=== PATIENT | male | born 1945 | race Caucasian/White ===

== ENCOUNTER 2016-11-08 14:17 | Inpatient (IN) | payer OTHER ==
[2016-11-08 15:27] LABS: Basophils # (A) 0.1 k/uL (0-0.2); Basophils % (A) 1 %; CH 28.6; CHCM 33.7; Eosinophils % (A) 0 %; HCT 40.2 % (39.0-53.0); HDW 2.62; Luc # (Auto) 0.22; Luc % (Auto) 5; Lymphocytes # (A) 0.4 k/uL (1.0-4.8); Lymphocytes % (A) 9 %; MCH 27.4 pg (25.0-35.0); MCHC 32.2 g/dL (31.0-37.0); MCV 85.1 fL (80.0-100.0); Mean Platelet Volume 7.9; Monocytes # (A) 0.6 k/uL (0-1.0); Monocytes % (A) 13 %; Neutrophils # (A) 3.5 k/uL (1.3-7.7); Neutrophils % (A) 72 %; RBC 4.73 m/uL (4.30-5.90); RDW 13.7 % (11.5-15.5); WBC 4.8 k/uL (3.8-10.6); WBC (Perox) 4.61
[2016-11-08 15:33] LABS: Calcium 8.9 mg/dL (8.4-10.2); Potassium 4.5 mmol/L (3.5-5.1)
[2016-11-08 15:34] LABS: INR 1.1 (<1.1)
[2016-11-08 15:35] LABS: Partial Thromboplastin Time 23.1 sec (22.0-30.0); Prothrombin Time 11.2 sec (9.0-12.0)
--- NOTE | 2016-11-08 16:10 | XR ---
EXAMINATION TYPE: XR chest 2V DATE OF EXAM: 11/08/2016 3:25 PM COMPARISON: Prior chest x-ray August HISTORY: Shortness of breath TECHNIQUE: Frontal and lateral views of the chest are obtained. FINDINGS: The heart is enlarged. Patient is post median sternotomy. Intracardiac defibrillator leads are present and stable. No pneumonia, pneumothorax, or pleural effusion. Prominent lung volume may b e indicative of underlying COPD. Pulmonary vascularity and reece not significantly changed. IMPRESSION: Stable cardiomegaly. No acute abnormalities evident.
[2016-11-08] MEDS ORDERED: NALOXONE 0.4 MG/ML 1 ML VIAL IV PRN (16:54)
[2016-11-08] MEDS ORDERED: NITROGLYCERIN SL TABS 0.4 MG TAB SUBLINGUAL PRN (16:56)
--- NOTE | 2016-11-08 17:05 | ED ---
General Adult HPI - General Chief complaint: Shortness of Breath Stated complaint: CHANTELLE Time Seen by Provider: 11/08/16 14:38 Source: patient Mode of arrival: wheelchair Limitations: no limitations - History of Present Illness Initial comments: 71-year-old male with past medical history of CHF, CVA/TIA, DM, HLD, HTN, CO, GERD, with pacemaker and CABG history presenting for evaluation of orthopnea for the last 4 days. He states the shortness of breath is only present when laying flat and when he sits up he has improvement. He had similar symptoms last year and states he was admitted with a diagnosis of acute exacerbation of CHF in August. He states there is no associated lower extremity swelling or fever but there is a cough productive of yellow sputum and he feels like he has a headache. He also has a past medical history of bladder cancer but is not receiving chemo or radiation therapy. - Related Data Home Medications Medication Instructions Recorded Confirmed Multivitamin/Iron/Folic Acid 1 tab PO DAILY 06/23/16 11/08/16 [Centrum Complete Multivit Tab] Glucosamine-Chondr 500-400Mg 1 tab PO DAILY 08/25/16 11/08/16 Bumetanide [Bumex] 1 mg PO DAILY 11/08/16 11/08/16 Carvedilol [Coreg] 6.25 mg PO AC-BID 11/08/16 11/08/16 Fish Oil/Dha/Epa [Fish Oil 1,200 1 cap PO DAILY 11/08/16 11/08/16 mg Fish Oil] Insulin NPH Human Isophane 30 unit SQ DAILY 11/08/16 11/08/16 [NovoLIN N] Tamsulosin HCl [Flomax] 0.4 mg PO DAILY 11/08/16 11/08/16 Previous Rx's Medication Instructions Recorded Clopidogrel [Plavix] 75 mg PO DAILY #30 tab 09/02/15 Furosemide [Lasix] 40 mg PO BID@0900,1600 #60 tab 09/11/16 Nitroglycerin Sl Tabs [Nitrostat] 0.4 mg SUBLINGUAL Q5M PRN #0 tab 09/11/16 Allergies Allergy/AdvReac Type Severity Reaction Status Date / Time Iodinated Contrast Media - Allergy Unknown Verified 11/08/16 15:15 Oral and [Iodinated Contrast Media - IV Dye] Review of Systems ROS Statement: Those systems with pertinent positive or pertinent negative responses have been documented in the HPI. General: Patient denies fever, chills,nausea, or vomiting. HEENT: No visual changes. No eye pain. No nasal symptoms. No dysphagia.No odynophagia. No ENT pain. Cardiac: No chest pain. No palpitations. Pulmonary; positive shortness of breath when lying flat, productive cough of yellow sputum GI: No abdominal pain. No diarrhea. No constipation. No bowel habit changes. No melena. No hematochezia. : No dysuria.No hematuria. No hesitancy. No urgency. No renal lithiasis history. Musculoskeletal: No musculoskeletal pain. Denies myalgias. Orthopedic: Denies fracture history. Denies arthralgias. Integumentary: Denies rash. Denies pruritis. Neurologic: Positive headache. Denies any lateralizing weakness. Denies numbness. Denies tingling. Heme/Onc: Denies anemia. Denies cancer. Denies adenopathy. ROS Other: All systems not noted in ROS Statement are negative. Past Medical History Past Medical History: CVA/TIA, Diabetes Mellitus, GERD/Reflux, Hyperlipidemia, Hypertension, Myocardial Infarction (CO) Additional Past Medical History / Comment(s): hematuria Last Myocardial Infarction Date:: 2009 History of Any Multi-Drug Resistant Organisms: None Reported Past Surgical History: Coronary Bypass/CABG, Pacemaker, Tonsillectomy Additional Past Surgical History / Comment(s): quadruple bypass Past Anesthesia/Blood Transfusion Reactions: No Reported Reaction Type of Cardiac Device: Permanent Pacemaker Device Placement Date:: 07/01/16 Past Psychological History: No Psychological Hx Reported Smoking Status: Former smoker Past Alcohol Use History: Occasional Additional Past Alcohol Use History / Comment(s): STARTED SMOKING AGE 16 (1960) , SMOKED 2PPD, QUIT 1990 Past Drug Use History: None Reported - Past Family History Father Family Medical History: Diabetes Mellitus General Exam - General Exam Comments Initial Comments: General: The patient is awake and alert, in no distress, and does not appear acutely ill. Eye: Pupils are equal, round and reactive to light, extra-ocular movements are intact; there is normal conjunctiva bilaterally. No signs of icterus. Ears, nose, mouth and throat: There are moist mucous membranes and no oral lesions. Neck: The neck is supple, there is no tenderness or JVD. Cardiovascular: There is a regular rate and rhythm. No murmur, rub or gallop is appreciated. Respiratory: Lungs are clear to auscultation, respirations are non-labored, breath sounds are equal. No wheezes, stridor, rales, or rhonchi. Gastrointestinal: Soft, non-distended, non-tender abdomen without masses or organomegaly noted. There is no rebound or guarding present. No CVA tenderness. Bowel sounds are unremarkable. Back: There is no tenderness to palpation in the midline. There is no obvious deformity. No rashes noted. Musculoskeletal: Normal ROM, no tenderness, There is no pedal edema. There is no calf tenderness or swelling. Sensation intact. Pulses equal bilaterally 2+. Neurological: CN II-XII intact, There are no obvious motor or sensory deficits. Coordination appears grossly intact. Speech is normal. Skin: Skin is warm and dry and no rashes or lesions are noted. Psychiatric: Cooperative, appropriate mood & affect, normal judgment. Limitations: no limitations Course Vital Signs 11/08/16 11/08/16 11/08/16 14:28 14:48 17:44 Temperature 98.0 F 100.3 F H Pulse Rate 74 73 Pulse Rate [ 97 Pulse Oximetery ] Respiratory 18 18 18 Rate Blood Pressure 126/68 126/76 Blood Pressure 168/79 [Right Arm] O2 Sat by Pulse 92 L 97 Oximetry 11/08/16 11/08/16 11/08/16 19:39 19:53 19:59 Temperature Pulse Rate 104 H 108 H 105 H Pulse Rate [ Pulse Oximetery ] Respiratory 26 H Rate Blood Pressure 178/81 Blood Pressure [Right Arm] O2 Sat by Pulse 98 Oximetry EKG Findings - EKG Comments: EKG Findings:: EKG shows normal sinus rhythm with ventricular rate of 74, GAYE 160, QRS 128, QT/QTc 410/455. This is unchanged from previous EKGs as compared with the EKG from 09/11/2016 Medical Decision Making - Medical Decision Making 71-year-old male with past medical history of CHF, CVA/TIA, DM, HLD, HTN, CO, GERD, with pacemaker and CABG history presented for evaluation of orthopnea for the last 4 days. He states the last time he had similar symptoms he was diagnosed with acute CHF exacerbation which was in August. He denies any lower extremity swelling but admits to associated cough productive of yellow sputum, headache and he has been afebrile. He states a history of bladder cancer and but has had no chemo and no radiation and does follow up with a urologist. On physical exam he has no lower extremity edema as he is sitting up in the bed, no Rales or rhonchi in the lung bases although there is diminished breath sounds bilaterally in the lower lobes. There is no noted JVD , tracheal deviation, and he has no right upper quadrant tenderness to palpation. We'll obtain labs, EKG, chest x-ray, and provided aspirin. Labs significant for elevated BUNs/CR, BNP, and troponin, all of which are consistent with previous values. He has also influenza B+. Chest x-ray shows stable cardiomegaly with no acute abnormalities evident. Prominent lung volume may be indicative of underlying COPD. Pulmonary vascularity and hilum not significantly changed. The patient was informed of these results and due to the progressive nature over 4 days of orthopnea was advised that admission for further evaluation would be appropriate. Dr. Gary was updated on the status of the patient and he accepted the admission with request for cardiology consult with Dr. Hernandez who has seen the pt previously. Admission order placed and bed request submitted. While awaiting a bed the patient developed mild shortness of breath. Will provide a duoneb and solumedrol. - Lab Data Result diagrams: 11/08/16 15:16 11/08/16 15:16 Lab Results 11/08/16 11/08/16 11/08/16 Range/Units 15:16 15:16 15:16 WBC 4.8 (3.8-10.6) k/uL RBC 4.73 (4.30-5.90) m/uL Hgb 13.0 (13.0-17.5) gm/dL Hct 40.2 (39.0-53.0) % MCV 85.1 (80.0-100.0) fL MCH 27.4 (25.0-35.0) pg MCHC 32.2 (31.0-37.0) g/dL RDW 13.7 (11.5-15.5) % Plt Count 109 L (150-450) k/uL Neutrophils % 72 % Lymphocytes % 9 % Monocytes % 13 % Eosinophils % 0 % Basophils % 1 % Neutrophils # 3.5 (1.3-7.7) k/uL Lymphocytes # 0.4 L (1.0-4.8) k/uL Monocytes # 0.6 (0-1.0) k/uL Eosinophils # 0.0 (0-0.7) k/uL Basophils # 0.1 (0-0.2) k/uL PT (9.0-12.0) sec INR (<1.1) APTT (22.0-30.0) sec Sodium 136 L (137-145) mmol/L Potassium 4.5 (3.5-5.1) mmol/L Chloride 98 (98-107) mmol/L Carbon Dioxide 27 (22-30) mmol/L Anion Gap 11 mmol/L BUN 43 H (9-20) mg/dL Creatinine 1.48 H (0.66-1.25) mg/dL Est GFR (MDRD) Af Amer 56 (>60 ml/min/1.73 sqM) Est GFR (MDRD) Non-Af 47 (>60 ml/min/1.73 sqM) Glucose 304 H (74-99) mg/dL Calcium 8.9 (8.4-10.2) mg/dL Troponin I (0.000-0.034) ng/mL NT-Pro-B Natriuret Pep 47152 pg/mL Influenza Type A RNA (Not Detectd) Influenza Type B (PCR) (Not Detectd) 11/08/16 11/08/16 11/08/16 Range/Units 15:16 15:16 15:16 WBC (3.8-10.6) k/uL RBC (4.30-5.90) m/uL Hgb (13.0-17.5) gm/dL Hct (39.0-53.0) % MCV (80.0-100.0) fL MCH (25.0-35.0) pg MCHC (31.0-37.0) g/dL RDW (11.5-15.5) % Plt Count (150-450) k/uL Neutrophils % % Lymphocytes % % Monocytes % % Eosinophils % % Basophils % % Neutrophils # (1.3-7.7) k/uL Lymphocytes # (1.0-4.8) k/uL Monocytes # (0-1.0) k/uL Eosinophils # (0-0.7) k/uL Basophils # (0-0.2) k/uL PT 11.2 (9.0-12.0) sec INR 1.1 (<1.1) APTT 23.1 (22.0-30.0) sec Sodium (137-145) mmol/L Potassium (3.5-5.1) mmol/L Chloride (98-107) mmol/L Carbon Dioxide (22-30) mmol/L Anion Gap mmol/L BUN (9-20) mg/dL Creatinine (0.66-1.25) mg/dL Est GFR (MDRD) Af Amer (>60 ml/min/1.73 sqM) Est GFR (MDRD) Non-Af (>60 ml/min/1.73 sqM) Glucose (74-99) mg/dL Calcium (8.4-10.2) mg/dL Troponin I 0.148 H* (0.000-0.034) ng/mL NT-Pro-B Natriuret Pep pg/mL Influenza Type A RNA Detected A (Not Detectd) Influenza Type B (PCR) Not Detected (Not Detectd) Disposition Clinical Impression: Acute CHF (congestive heart failure), Influenza A, Orthopnea Disposition: ADMITTED IP TO THIS [facility] Decision to Admit Reason: Admit from EC Decision Date: 11/08/16 Decision Time: 17:05
[2016-11-08] MEDS ORDERED: methylPREDNISolone SOD SUCCI 125 MG/2 ML VIAL IV STA (19:46)
[2016-11-08] MEDS ORDERED: IPRATROPIUM-ALBUTEROL 3 ML NEB INHALATION STA (19:46)
[2016-11-08 20:49] LABS: Glucose,Whole Blood 325 mg/dL (75-99)
[2016-11-08 20:53] VITALS: BMI 30.7
[2016-11-08] MEDS ORDERED: INSULIN NPH 300 UNIT/3 ML VIAL SQ SCH (21:06)
[2016-11-08] MEDS ORDERED: INSULIN NPH 300 UNIT/3 ML VIAL SQ STA (21:38)
[2016-11-08] MEDS ORDERED: INSULIN LISPRO (humaLOG) 300 UNIT/3 ML VIAL SQ ONE (21:41)
[2016-11-08] MEDS: CARVEDILOL 6.25 MG TAB PO SCH (21:55)
[2016-11-09 02:00] LABS: Glucose,Whole Blood 204 mg/dL (75-99)
[2016-11-09 06:25] LABS: Glucose,Whole Blood 286 mg/dL (75-99)
[2016-11-09 06:32] LABS: Basophils % (A) 0 %; CHCM 31.9; Eosinophils % (A) 0 %; HCT 41.8 % (39.0-53.0); HDW 2.59; HGB 13.3 gm/dL (13.0-17.5); Luc # (Auto) 0.06; Luc % (Auto) 2; Lymphocytes # (A) 0.5 k/uL (1.0-4.8); Lymphocytes % (A) 11 %; MCH 28.1 pg (25.0-35.0); MCHC 31.9 g/dL (31.0-37.0); MCV 88.1 fL (80.0-100.0); Mean Platelet Volume 7.4; Monocytes # (A) 0.2 k/uL (0-1.0); Monocytes % (A) 5 %; Neutrophils # (A) 3.6 k/uL (1.3-7.7); Neutrophils % (A) 83 %; RBC 4.75 m/uL (4.30-5.90); RDW 13.4 % (11.5-15.5); WBC 4.3 k/uL (3.8-10.6); WBC (Perox) 4.62
[2016-11-09 06:41] LABS: Calcium 8.9 mg/dL (8.4-10.2); Potassium 4.5 mmol/L (3.5-5.1)
[2016-11-09] MEDS: INSULIN LISPRO (humaLOG) 300 UNIT/3 ML VIAL SQ SCH ×4 (07:07→20:34)
[2016-11-09] MEDS: CARVEDILOL 6.25 MG TAB PO SCH ×2 (07:07→17:22)
--- NOTE | 2016-11-09 07:47 | XR ---
EXAMINATION TYPE: XR chest 2V DATE OF EXAM: 11/09/2016 6:41 AM COMPARISON: 11/08/2016 INDICATION: Short of breath chills and sweating TECHNIQUE: Frontal and lateral views of the chest are obtained. FINDINGS: The heart size is normal. The pulmonary vasculature is normal. The lungs are clear. IMPRESSION: 1. No acute pulmonary process.
[2016-11-09] MEDS ORDERED: FUROSEMIDE 40 MG TAB PO SCH (09:00)
[2016-11-09] MEDS ORDERED: INSULIN NPH 300 UNIT/3 ML VIAL SQ SCH (09:00)
[2016-11-09] MEDS ORDERED: BUMETANIDE 1 MG TAB PO SCH (09:00)
[2016-11-09] MEDS ORDERED: NON-FORMULARY DRUG (Glucosamine-Chondr 500-400mg 1 TAB) PO SCH (09:00)
--- NOTE | 2016-11-09 10:11 | P.CRDCN ---
<Shilpa Enriquez E - Last Filed: 11/09/16 09:45> History of Present Illness Consult date: 11/09/16 Requesting physician: Shikha Gary Consult reason: congestive heart failure Chief complaint: Shortness of breath History of present illness: This is a 71-year-old gentleman who follows regularly with Dr. Medina in the office. He has a known history of hypertension, hyperlipidemia, diabetes, coronary artery disease with prior bypass surgery, prior smoking history, most recently patient underwent a dual-chamber AICD in June of last year, also history of CVA in the past. He presented to the hospital with symptoms of worsening shortness of breath, positive PND and orthopnea, positive productive cough of yellow sputum with associated body aches and generalized malaise. Patient was most recently in the hospital in August with congestive cardiac failure. Patient also has past medical history of bladder cancer but is not receiving chemo or radiation therapy. Patient had been started on Entresto, states that he received the free one month and after that it was going to cost him $500, therefore he stopped taking it, went back on his usual cardiac meds. Chest x-ray on admission reveals stable cardiomegaly with no acute abnormality. EKG shows a normal sinus rhythm with nonspecific ST-T wave changes. Repeat chest x-ray this morning did not reveal any acute cardiopulmonary distress. Lab data was reviewed. Patient is positive for influenza A. BNP level XVI,CC. Troponin 0.14, BUN 54, creatinine 1.5, potassium 4.5. Patient was not initiated on IV Lasix, he is currently on Bumex 1 mg by mouth daily along with by mouth Lasix 40 mg one tablet by mouth twice a day. We will discontinue both the Bumex and the Lasix, start the patient on IV Lasix. We'll also initiate a small dose of LANG inhibitor, monitoring the potassium and creatinine closely. Past Medical History Past Medical History: CVA/TIA, Diabetes Mellitus, GERD/Reflux, Hyperlipidemia, Hypertension, Myocardial Infarction (VT) Additional Past Medical History / Comment(s): hematuria Last Myocardial Infarction Date:: 2009 History of Any Multi-Drug Resistant Organisms: None Reported Past Surgical History: Coronary Bypass/CABG, Pacemaker, Tonsillectomy Additional Past Surgical History / Comment(s): quadruple bypass Past Anesthesia/Blood Transfusion Reactions: No Reported Reaction Type of Cardiac Device: Permanent Pacemaker Device Placement Date:: 07/01/16 Past Psychological History: No Psychological Hx Reported Smoking Status: Former smoker Past Alcohol Use History: Occasional Additional Past Alcohol Use History / Comment(s): STARTED SMOKING AGE 16 (1960) , SMOKED 2PPD, QUIT 1990 Past Drug Use History: None Reported Additional Drug Use History / Comment(s): Patient states he drinks 1-2 beers/wk. - Past Family History Father Family Medical History: Diabetes Mellitus Medications and Allergies Home Medications Medication Instructions Recorded Confirmed Type Multivitamin/Iron/Folic Acid 1 tab PO DAILY 06/23/16 11/08/16 History [Centrum Complete Multivit Tab] Glucosamine-Chondr 500-400Mg 1 tab PO DAILY 08/25/16 11/08/16 History Bumetanide [Bumex] 1 mg PO DAILY 11/08/16 11/08/16 History Carvedilol [Coreg] 6.25 mg PO AC-BID 11/08/16 11/08/16 History Fish Oil/Dha/Epa [Fish Oil 1,200 1 cap PO DAILY 11/08/16 11/08/16 History mg Fish Oil] Insulin NPH Human Isophane 30 unit SQ DAILY 11/08/16 11/08/16 History [NovoLIN N] Tamsulosin HCl [Flomax] 0.4 mg PO DAILY 11/08/16 11/08/16 History Allergies Allergy/AdvReac Type Severity Reaction Status Date / Time Iodinated Contrast Media - Allergy Unknown Verified 11/08/16 15:15 Oral and [Iodinated Contrast Media - IV Dye] Physical Exam Vitals: Vital Signs Temp Pulse Pulse Resp BP BP Pulse Ox 11/09/16 03:57 97 F L 67 16 121/69 95 11/09/16 00:00 98.8 F 74 18 118/66 96 11/08/16 19:59 105 H 11/08/16 19:53 108 H 11/08/16 19:39 104 H 26 H 178/81 98 11/08/16 17:44 100.3 F H 73 97 18 126/76 168/79 97 Intake and Output 11/08/16 11/09/16 11/09/16 22:59 06:59 14:59 Intake Total 12 10 Output Total 350 200 Balance -338 -190 Intake: IV 12 10 0.9% NS FLUSH 10 mL 10 10 IV solumedrol 2 mL ONCE 2 Output: Urine 350 200 Other: # Voids 1 1 Weight 89 kg 89 kg PHYSICAL EXAMINATION: HEENT: Head is atraumatic, normocephalic. Pupils equal, round. Neck is supple. There is elevated jugular venous pressure. HEART EXAMINATION: Heart S1 and S2 systolic murmur is heard. CHEST EXAMINATION: Lungs reveal scattered coarse rhonchi throughout. ABDOMEN: Soft, nontender. Bowel sounds are heard. No organomegaly noted. EXTREMITIES: 2+ peripheral pulses with no evidence of peripheral edema and no calf tenderness noted. NEUROLOGIC patient is awake, alert and oriented -3. . Results 11/09/16 06:04 11/09/16 06:04 CBC 11/09/16 Range/Units 06:04 WBC 4.3 (3.8-10.6) k/uL RBC 4.75 (4.30-5.90) m/uL Hgb 13.3 (13.0-17.5) gm/dL Hct 41.8 (39.0-53.0) % Plt Count 109 L (150-450) k/uL Comprehensive Metabolic Panel 11/09/16 Range/Units 06:04 Sodium 137 (137-145) mmol/L Potassium 4.5 (3.5-5.1) mmol/L Chloride 99 (98-107) mmol/L Carbon Dioxide 25 (22-30) mmol/L BUN 54 H (9-20) mg/dL Creatinine 1.50 H (0.66-1.25) mg/dL Glucose 300 H (74-99) mg/dL Calcium 8.9 (8.4-10.2) mg/dL Current Medications Generic Name Dose Route Start Last Admin Trade Name Freq PRN Reason Stop Dose Admin Bumetanide 1 mg 11/09/16 09:00 Bumex PO DAILY [facility] Carvedilol 6.25 mg 11/08/16 17:30 11/09/16 07:07 Coreg PO 6.25 mg AC-BID BELLA Administration Clopidogrel Bisulfate 75 mg 11/09/16 09:00 Plavix PO DAILY [facility] Furosemide 40 mg 11/09/16 09:00 Lasix PO BID@0900,1600 [facility] Insulin Human Lispro 0 unit 11/09/16 07:30 11/09/16 07:07 Humalog SQ 5 unit ACHS BELLA Administration Protocol Insulin Human NPH 30 unit 11/09/16 09:00 Humulin N SQ DAILY BELLA Multivitamins 1 each 11/09/16 09:00 Theragran PO DAILY BELLA Naloxone HCl 0.2 mg 11/08/16 16:54 Narcan IV Q2M PRN Opioid Reversal Nitroglycerin 0.4 mg 11/08/16 16:56 Nitrostat SUBLINGUAL Q5M PRN Chest Pain Tamsulosin HCl 0.4 mg 11/09/16 09:00 Flomax PO DAILY BELLA Intake and Output 11/08/16 11/09/16 11/09/16 22:59 06:59 14:59 Intake Total 12 10 Output Total 350 200 Balance -338 -190 Intake: IV 12 10 0.9% NS FLUSH 10 mL 10 10 IV solumedrol 2 mL ONCE 2 Output: Urine 350 200 Other: # Voids 1 1 Weight 89 kg 89 kg 11/09/16 06:04 11/09/16 06:04 EKG Interpretations (text) EKG shows normal sinus rhythm with nonspecific ST-T wave changes. Assessment and Plan Plan: Assessment and plan #1 symptoms of shortness of breath with associated productive cough of yellow sputum. Associated body aches and fatigue, positive for influenza A. 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 Monitor intake and output along with daily weights daily lytes BUN and creatinine. Patient is not currently on an LANG inhibitor because of mildly abnormal renal function. If the creatinine normalizes we will consider the addition of an LANG inhibitor Aldactone. Will obtain an echocardiogram with Doppler study. Further recommendations to follow. DNP note has been reviewed, I agree with a documented findings and plan of care. Patient was seen and examined. <Daniel Ernandez - Last Filed: 11/09/16 16:24> Physical Exam Vitals: Vital Signs Temp Pulse Pulse Resp BP BP Pulse Ox 11/09/16 15:52 97.5 F L 60 16 108/65 92 L 11/09/16 11:45 97.7 F 62 113/57 93 L 11/09/16 08:00 65 11/09/16 03:57 97 F L 67 16 121/69 95 11/09/16 00:00 98.8 F 74 18 118/66 96 11/08/16 19:59 105 H 11/08/16 19:53 108 H 11/08/16 19:39 104 H 26 H 178/81 98 11/08/16 17:44 100.3 F H 73 97 18 126/76 168/79 97 Intake and Output 11/09/16 11/09/16 11/09/16 06:59 14:59 22:59 Intake Total 10 320 Output Total 200 Balance -190 320 Intake: IV 10 20 0.9% NS FLUSH 10 mL 10 20 Oral 300 Output: Urine 200 Other: # Voids 1 Weight 89 kg 89 kg Patient Weight 11/10/16 06:59 Weight 89 kg Results 11/09/16 06:04 11/09/16 06:04 CBC 11/09/16 Range/Units 06:04 WBC 4.3 (3.8-10.6) k/uL RBC 4.75 (4.30-5.90) m/uL Hgb 13.3 (13.0-17.5) gm/dL Hct 41.8 (39.0-53.0) % Plt Count 109 L (150-450) k/uL Comprehensive Metabolic Panel 11/09/16 Range/Units 06:04 Sodium 137 (137-145) mmol/L Potassium 4.5 (3.5-5.1) mmol/L Chloride 99 (98-107) mmol/L Carbon Dioxide 25 (22-30) mmol/L BUN 54 H (9-20) mg/dL Creatinine 1.50 H (0.66-1.25) mg/dL Glucose 300 H (74-99) mg/dL Calcium 8.9 (8.4-10.2) mg/dL Current Medications Generic Name Dose Route Start Last Admin Trade Name Freq PRN Reason Stop Dose Admin Acetaminophen/Hydrocodone Bitart 1 each 11/09/16 15:12 [place] 5-325 PO Q6HR PRN Pain Alprazolam 0.25 mg 11/09/16 15:12 Xanax PO TID PRN Anxiety Carvedilol 6.25 mg 11/08/16 17:30 11/09/16 07:07 Coreg PO 6.25 mg AC-BID BELLA Administration Clopidogrel Bisulfate 75 mg 11/09/16 09:00 11/09/16 11:37 Plavix PO 75 mg DAILY BELLA Administration Furosemide 40 mg 11/09/16 10:15 11/09/16 11:37 Lasix IV 40 mg Q12HR BELLA Administration Heparin Sodium (Porcine) 5,000 unit 11/09/16 21:00 Heparin SQ Q12HR BELLA Insulin Human Lispro 0 unit 11/09/16 07:30 11/09/16 13:06 Humalog SQ 5 unit ACHS BELLA Administration Protocol Insulin Human NPH 30 unit 11/09/16 09:00 11/09/16 11:36 Humulin N SQ 30 unit DAILY BELLA Administration Multivitamins 1 each 11/09/16 09:00 11/09/16 11:37 Theragran PO 1 each DAILY BELLA Administration Naloxone HCl 0.2 mg 11/08/16 16:54 Narcan IV Q2M PRN Opioid Reversal Nitroglycerin 0.4 mg 11/08/16 16:56 Nitrostat SUBLINGUAL Q5M PRN Chest Pain Tamsulosin HCl 0.4 mg 11/09/16 09:00 11/09/16 11:37 Flomax PO 0.4 mg DAILY BELLA Administration Temazepam 15 mg 11/09/16 15:12 Restoril PO HS PRN Insomnia Intake and Output 11/09/16 11/09/16 11/09/16 06:59 14:59 22:59 Intake Total 10 320 Output Total 200 Balance -190 320 Intake: IV 10 20 0.9% NS FLUSH 10 mL 10 20 Oral 300 Output: Urine 200 Other: # Voids 1 Weight 89 kg 89 kg Patient Weight 11/10/16 06:59 Weight 89 kg 11/09/16 06:04 11/09/16 06:04
[2016-11-09 11:36] LABS: Glucose,Whole Blood 297 mg/dL (75-99)
[2016-11-09] MEDS: INSULIN NPH 300 UNIT/3 ML VIAL SQ SCH (11:36)
[2016-11-09] MEDS: CLOPIDOGREL 75 MG TAB PO SCH (11:37)
[2016-11-09] MEDS: TAMSULOSIN 0.4 MG CAP.ER.24H PO SCH (11:37)
[2016-11-09] MEDS: MULTIVITAMINS, THERA 1 EACH TAB PO SCH (11:37)
[2016-11-09] MEDS: FUROSEMIDE 10 MG/ML 4 ML VIAL IV SCH ×2 (11:37→20:28)
--- NOTE | 2016-11-09 12:21 | ECHOF ---
Referral Reason:chf MEASUREMENTS -------- HEIGHT: 170.2 cm WEIGHT: 88.9 kg BP: 121/69 RVIDd: 3.7 cm (< 3.3) IVSd: 1.3 cm (0.6 - 1.1) LVIDd: 6.3 cm (3.9 - 5.3) LVPWd: 1.4 cm (0.6 - 1.1) IVSs: 1.7 cm LVIDs: 5.5 cm LVPWs: 1.6 cm LA Diam: 4.3 cm (2.7 - 3.8) LAESV Index (A-L): 50.34 ml/m Ao Diam: 3.3 cm (2.0 - 3.7) AV Cusp: 1.2 cm (1.5 - 2.6) LA Diam: 3.4 cm (2.7 - 3.8) MV EXCURSION: 20.282 mm (> 18.000) MV EF SLOPE: 55 mm/s (70 - 150) EPSS: 1.6 cm AV maxP.80 mmHg AV meanP.99 mmHg AR PHT: 996 ms RAP: 5.00 mmHg RVSP: 51.63 mmHg FINDINGS -------- This was a technically difficult study with suboptimal apical views. The left ventricle is mildly dilated. There is moderate concentric left ventricular hypertrophy. Overall left ventricular systolic function is moderate-severely impaired with, an EF between 30 - 35 %. Basal inferior LV wall motion is akinetic. The right ventricle is mild to moderately enlarged. LA is severely dilated >40 ml/m2 The right atrium is normal in size. 1.5mg of Definity was utilized for enhancement of images There is moderate aortic valve sclerosis. There is mild aortic regurgitation. There is mild aortic stenosis present. Peak/mean gradient across the Aortic Valve is 16.80mmHg / 8.99mmHg. Mild mitral annular calcification present. Moderate mitral regurgitation is present. Moderate tricuspid regurgitation present. There is moderate pulmonary hypertension. The right ventricular systolic pressure, as measured by Doppler, is 51.63mmHg. Trace/mild (physiologic) pulmonic regurgitation. The aortic root size is normal. There is no pericardial effusion. CONCLUSIONS -------- 1. This was a technically difficult study with suboptimal apical views. 2. There is moderate aortic valve sclerosis. 3. There is mild aortic regurgitation. 4. There is mild aortic stenosis present. 5. Peak/mean gradient across the Aortic Valve is 16.80mmHg / 8.99mmHg. 6. Mild mitral annular calcification present. 7. Moderate mitral regurgitation is present. 8. Moderate tricuspid regurgitation present. 9. There is moderate pulmonary hypertension. 10. The right ventricular systolic pressure, as measured by Doppler, is 51.63mmHg. 11. Trace/mild (physiologic) pulmonic regurgitation. 12. The left ventricle is mildly dilated. 13. The aortic root size is normal. 14. There is no pericardial effusion. 15. There is moderate concentric left ventricular hypertrophy. 16. Overall left ventricular systolic function is moderate-severely impaired with, an EF between 30 - 35 %. 17. Basal inferior LV wall motion is akinetic. 18. The right ventricle is mild to moderately enlarged. 19. LA is severely dilated >40 ml/m2 20. The right atrium is normal in size. 21. 1.5mg of Definity was utilized for enhancement of images [employer]: Karina Torres RDCS
[2016-11-09 12:25] LABS: Hemoglobin A1C 7.6 % (4.2-6.1)
[2016-11-09] MEDS ORDERED: TEMAZEPAM 15 MG CAP PO PRN (15:12)
[2016-11-09] MEDS ORDERED: HYDROcodone/APAP 5-325MG 1 EACH TAB PO PRN (15:12)
[2016-11-09] MEDS ORDERED: ALPRAZolam 0.25 MG TAB PO PRN (15:12)
[2016-11-09 16:48] LABS: Glucose,Whole Blood 288 mg/dL (75-99)
[2016-11-09] MEDS: HEPARIN SODIUM,PORCINE 5,000 UNIT/ML 1 ML VIAL SQ SCH (20:28)
[2016-11-09 20:37] LABS: Glucose,Whole Blood 245 mg/dL (75-99)
--- NOTE | 2016-11-09 21:57 | HP ---
DATE OF ADMISSION: 11/08/2016 CHIEF COMPLAINT: Shortness of breath. HISTORY OF PRESENT ILLNESS: This is a 71-year-old gentleman being followed by Dr. Crow in the outpatient setting with past medical history of cerebrovascular accident and transient ischemic attack, diabetes mellitus, GERD, hypertension, myocardial infarction, CAD/CABG, pacemaker was complaining of shortness of breath for the past several days because of the increasing shortness of breath the patient came to [facility] and admitted for further evaluation and treatment. The patient has history of congestive heart failure, ejection fraction 20-25% secondary to ischemic cardiomyopathy. There is no history of fever, rigors. No history of headache, loss of consciousness or seizures. After getting Lasix, the patient improved significantly. Patient being closely monitored. Cardiology evaluation in progress at this time. There is no much leg edema is noted. No history of any significant weight gain also according to the patient. Past history of congestive heart failure ejection fraction 20-25%, history of cerebrovascular accident, transient ischemic attack, diabetes mellitus , gastroesophageal reflux disease, hypertension, hyperlipidemia, history of CAD/CABG, pacemaker. Medications prior to admission include home medications: 1. Lasix 40 mg p.o. b.i.d. 2. Plavix 75 mg p.o. daily. 3. Flomax 0.4 mg daily. 4. Nitrostat 0.4 sublingual p.r.n. 5. Multivitamins one p.o. daily. 7. Glucosamine chondroitin 500/400, 1 p.o. daily. 8. Fish oil 1.2 grams p.o. daily. 9. Coreg 6.25 mg p.o. daily. 10. Bumex 1 mg p.o. daily. ALLERGIES ARE IODINATED CONTRAST DYE. Family history of diabetes in the family. SOCIAL HISTORY: Previous history of smoking. No history of current smoking or alcohol intake. REVIEW OF SYSTEMS: ENT: No diminished vision. No diminished hearing. CARDIOVASCULAR: As mentioned earlier. RESPIRATORY: As mentioned earlier. GASTROINTESTINAL: No nausea or vomiting. : No dysuria. Nervous system: No numbness, weakness. Allergy/immunology: No asthma or hayfever. MUSCULOSKELETAL: As mentioned earlier. HEMATOLOGY/ONCOLOGY: No history of anemia. ENDOCRINE: No history of diabetes or hypothyroidism. CONSTITUTIONAL: As mentioned earlier. DERMATOLOGY: Negative. RHEUMATOLOGY: Negative. PSYCHIATRY: As mentioned earlier. PHYSICAL EXAMINATION: The patient is alert and oriented times three. Pulse 67, blood pressure 120/69, respiratory rate 16, temperature 97 degrees, pulse ox 94% on 2 liters. HEENT: Conjunctivae normal. NECK: No jugular venous distention. CARDIOVASCULAR: S1, S2 muffled. RESPIRATORY : Breath sounds diminished at the bases. Bilateral scattered rhonchi and crackles. ABDOMEN: Soft, nontender. No mass palpable. Legs: No edema, no swelling. Nervous system: Higher functions as mentioned earlier. Moves all four limbs. No focal deficits. LYMPHATICS: No lymph nodes palpable in the neck, axillae or groin. SKIN: No ulcer, rash or bleeding. LABS: CBC, platelet 109, creatinine 1.05, other labs noted. Chest x-ray noted. ASSESSMENT: 1. Congestive heart failure acute exacerbation with acute on chronic systolic dysfunction; ejection fraction 20 to 25% secondary to ischemic cardiomyopathy. 2. Mild thrombocytopenia. 3. Increased creatinine with chronic kidney disease Stage III. 4. History of cerebrovascular accident/ transient ischemic attack. 5. Type 2 diabetes mellitus. 6. Gastroesophageal reflux disease. 7. Hypertension. 8. Hyperlipidemia. 9. History of myocardial infarction. 10. Hematuria. 11. Coronary artery disease/ coronary artery bypass grafting. 12. Pacemaker. 13. Remote history of nicotine dependence. 14. FULL CODE. Recommendations and discussion: In this 71-year-old gentleman who presented with multiple complex medical issues, we will monitor the patient closely. Continue the current medications. Continue symptomatic treatment . Initiate IV diuretics. Resume the rest of the medication including beta blockers. Otherwise, continue to monitor blood sugars closely. DVT prophylaxis. Guarded prognosis because of multiple complex medical issues. Further recommendations to follow. A copy of dictation being forwarded to Dr. Crow who is the primary physician. [facility]
[2016-11-10 06:22] LABS: Glucose,Whole Blood 176 mg/dL (75-99)
[2016-11-10] MEDS: INSULIN LISPRO (humaLOG) 300 UNIT/3 ML VIAL SQ SCH ×4 (06:46→21:38)
[2016-11-10] MEDS: CARVEDILOL 6.25 MG TAB PO SCH ×2 (06:46→17:42)
[2016-11-10 06:58] LABS: Basophils % (A) 0 %; CH 28.3; CHCM 33.1; Eosinophils % (A) 0 %; HCT 40.6 % (39.0-53.0); HDW 2.74; HGB 13.2 gm/dL (13.0-17.5); Luc # (Auto) 0.25; Luc % (Auto) 3; Lymphocytes # (A) 1.2 k/uL (1.0-4.8); Lymphocytes % (A) 16 %; MCH 27.8 pg (25.0-35.0); MCHC 32.4 g/dL (31.0-37.0); MCV 85.9 fL (80.0-100.0); Mean Platelet Volume 7.7; Monocytes # (A) 0.5 k/uL (0-1.0); Monocytes % (A) 6 %; Neutrophils # (A) 5.6 k/uL (1.3-7.7); Neutrophils % (A) 74 %; RBC 4.72 m/uL (4.30-5.90); RDW 13.3 % (11.5-15.5); WBC 7.5 k/uL (3.8-10.6); WBC (Perox) 8.03
[2016-11-10 07:05] LABS: Calcium 8.6 mg/dL (8.4-10.2); Potassium 3.9 mmol/L (3.5-5.1)
[2016-11-10] MEDS: CLOPIDOGREL 75 MG TAB PO SCH (08:36)
[2016-11-10] MEDS: MULTIVITAMINS, THERA 1 EACH TAB PO SCH (08:36)
[2016-11-10] MEDS: HEPARIN SODIUM,PORCINE 5,000 UNIT/ML 1 ML VIAL SQ SCH ×2 (08:36→21:38)
[2016-11-10] MEDS: FUROSEMIDE 10 MG/ML 4 ML VIAL IV SCH ×2 (08:36→21:37)
[2016-11-10] MEDS: TAMSULOSIN 0.4 MG CAP.ER.24H PO SCH (08:37)
[2016-11-10] MEDS: INSULIN NPH 300 UNIT/3 ML VIAL SQ SCH (08:38)
[2016-11-10 11:42] LABS: Glucose,Whole Blood 184 mg/dL (75-99)
--- NOTE | 2016-11-10 14:47 | P.PN ---
Subjective Principal diagnosis: CHF/influenza A This is a 71-year-old gentleman who follows regularly with Dr. Medina in the office. He has a known history of hypertension, hyperlipidemia, diabetes, coronary artery disease with prior bypass surgery, prior smoking history, most recently patient underwent a dual-chamber AICD in June of last year, also history of CVA in the past. He presented to the hospital with symptoms of worsening shortness of breath, positive PND and orthopnea, positive productive cough of yellow sputum with associated body aches and generalized malaise. Patient was most recently in the hospital in August with congestive cardiac failure. Patient also has past medical history of bladder cancer but is not receiving chemo or radiation therapy. Patient had been started on Entresto, states that he received the free one month and after that it was going to cost him $500, therefore he stopped taking it, went back on his usual cardiac meds. Chest x-ray on admission reveals stable cardiomegaly with no acute abnormality. EKG shows a normal sinus rhythm with nonspecific ST-T wave changes. Patient ruled in for influenza A. He was also initiated on IV Lasix for congestive heart failure. Total weight is down 6 kg. Creatinine today 1.4. Echocardiogram with Doppler study was performed which revealed an ejection fraction of 30-35%. Objective - Vital Signs Vital signs: Vital Signs Temp 98.9 F 11/10/16 08:00 Pulse 62 11/10/16 12:00 Resp 16 11/10/16 04:00 BP 113/53 11/10/16 12:00 Pulse Ox 97 11/10/16 12:00 Intake & Output 11/09/16 11/10/16 11/10/16 18:59 06:59 18:59 Intake Total 600 190 Output Total 350 120 Balance 250 -120 190 Weight 89 kg 83.7 kg Intake: IV 20 10 0.9% NS FLUSH 10 mL 20 10 Oral 580 180 Output: Urine 350 120 - Exam PHYSICAL EXAMINATION: HEENT: Head is atraumatic, normocephalic. Pupils equal, round. Neck is supple. There is elevated jugular venous pressure. HEART EXAMINATION: Heart S1 and S2 systolic murmur is heard. CHEST EXAMINATION: Lungs reveal scattered coarse rhonchi throughout. ABDOMEN: Soft, nontender. Bowel sounds are heard. No organomegaly noted. EXTREMITIES: 2+ peripheral pulses with no evidence of peripheral edema and no calf tenderness noted. NEUROLOGIC patient is awake, alert and oriented -3. - Labs CBC & Chem 7: 11/10/16 06:26 11/10/16 06:22 Labs: Abnormal Lab Results - Last 24 Hours (Table) 11/09/16 11/09/16 11/10/16 Range/Units 16:46 20:33 06:20 Plt Count (150-450) k/uL BUN (9-20) mg/dL Creatinine (0.66-1.25) mg/dL Glucose (74-99) mg/dL POC Glucose (mg/dL) 288 H 245 H 176 H (75-99) mg/dL 11/10/16 11/10/16 11/10/16 Range/Units 06:22 06:26 11:39 Plt Count 117 L (150-450) k/uL BUN 68 H (9-20) mg/dL Creatinine 1.46 H (0.66-1.25) mg/dL Glucose 184 H (74-99) mg/dL POC Glucose (mg/dL) 184 H (75-99) mg/dL Assessment and Plan Plan: Assessment and plan #1 symptoms of shortness of breath with associated productive cough of yellow sputum. Associated body aches and fatigue, positive for influenza A. #2 systolic congestive heart failure acute on chronic #3 ischemic cardio myopathy with prior AICD implantation #4 coronary artery disease with prior bypass surgery # 5 history of CVA #6 prior smoking history #7 diabetes #8 hypertension #9 hyperlipidemia #10 history of bladder cancer Plan We will continue the IV Lasix for 24 hours, check lytes BUN creatinine in the morning. DNP note has been reviewed, I agree with a documented findings and plan of care. Patient was seen and examined.
[2016-11-10 16:45] LABS: Glucose,Whole Blood 106 mg/dL (75-99)
--- NOTE | 2016-11-10 19:31 | PN ---
DATE OF SERVICE: 11/10/2016 This 71-year-old gentleman who was admitted with CHF, acute exacerbation, as well as acute on chronic systolic dysfunction, ejection fraction 20% to 25%, secondary to cardiomyopathy, had shortness of breath. The patient has improved significantly. No chest pain or palpitation. No fever. Cardiology is following the patient closely. Creatinine is 1.46 today, which is actually slightly better than yesterday. On exam, alert and oriented x3. Pulse is 56, blood pressure 102/63, respiration 16, temperature 98.9, pulse ox 92% on room air. HEENT: Conjunctivae normal. NECK: No jugular venous distention. No carotid bruit. No lymph node enlargement. CARDIOVASCULAR SYSTEM: S1, S2 muffled. No S3. No S4. RESPIRATORY SYSTEM: Breath sounds diminished at the bases. No rhonchi. No crackles. ABDOMEN: Soft, non-tender. No mass palpable. LEGS: No edema. No swelling. NERVOUS SYSTEM: No focal deficit. LABS: Platelets 117. Creatinine is 1.46. Troponin 0.148. ASSESSMENT: 1. Congestive heart failure, acute exacerbation, with acute on chronic systolic dysfunction; ejection fraction 20% to 25%, secondary to ischemic cardiomyopathy. 2. Mild thrombocytopenia. 3. Increased creatinine with chronic kidney disease, stage III. 4. History of cerebrovascular accident, transient ischemic attack. 5. Diabetes mellitus, type 2. 6. Gastroesophageal reflux disease. 7. Hypertension. 8. Hyperlipidemia. 9. History of myocardial infarction. 10. History of hematuria. 11. Coronary artery disease, coronary artery bypass graft. 12. Pacemaker. 13. Remote history of nicotine dependence. 14. FULL CODE. RECOMMENDATIONS AND DISCUSSION: In this 71-year-old gentleman who presented with multiple complex medical issues, we will monitor the patient closely, continue the current medications, continue with symptomatic treatment. Otherwise, at this time I recommend repeat labs. Closely monitor with Cardiology. Guarded prognosis. Further recommendations to follow. MTDD
[2016-11-10] MEDS ORDERED: MELATONIN 5 MG TABLET PO SCH (21:00)
[2016-11-10 21:29] LABS: Glucose,Whole Blood 109 mg/dL (75-99)
[2016-11-11 05:48] LABS: Glucose,Whole Blood 113 mg/dL (75-99)
[2016-11-11] MEDS: INSULIN LISPRO (humaLOG) 300 UNIT/3 ML VIAL SQ SCH ×2 (06:21→12:33)
[2016-11-11] MEDS: CARVEDILOL 6.25 MG TAB PO SCH (06:23)
[2016-11-11 06:30] VITALS: RESP 18
[2016-11-11 06:41] LABS: Basophils % (A) 0 %; CH 28.2; CHCM 32.7; Eosinophils % (A) 0 %; HCT 43.4 % (39.0-53.0); HDW 2.81; HGB 14.1 gm/dL (13.0-17.5); Luc % (Auto) 3; Lymphocytes # (A) 1.4 k/uL (1.0-4.8); Lymphocytes % (A) 22 %; MCH 28.1 pg (25.0-35.0); MCHC 32.5 g/dL (31.0-37.0); MCV 86.5 fL (80.0-100.0); Mean Platelet Volume 7.6; Monocytes # (A) 0.4 k/uL (0-1.0); Monocytes % (A) 7 %; Neutrophils # (A) 4.1 k/uL (1.3-7.7); Neutrophils % (A) 67 %; RBC 5.02 m/uL (4.30-5.90); RDW 13.4 % (11.5-15.5); WBC 6.1 k/uL (3.8-10.6)
[2016-11-11 06:55] LABS: Anion Gap 13 mmol/L; Calcium 8.8 mg/dL (8.4-10.2); Carbon Dioxide 26 mmol/L (22-30); Chloride 100 mmol/L (98-107); Glucose 106 mg/dL (74-99); Non-African American GFR(MDRD) 52 (>60 ml/min/1.73 sqM); Sodium 139 mmol/L (137-145)
[2016-11-11 06:56] LABS: Blood Urea Nitrogen 66 mg/dL (9-20); Potassium 4.2 mmol/L (3.5-5.1)
[2016-11-11] MEDS: INSULIN NPH 300 UNIT/3 ML VIAL SQ SCH (07:46)
[2016-11-11] MEDS: FUROSEMIDE 10 MG/ML 4 ML VIAL IV SCH (07:46)
[2016-11-11] MEDS: HEPARIN SODIUM,PORCINE 5,000 UNIT/ML 1 ML VIAL SQ SCH (07:46)
[2016-11-11] MEDS: MULTIVITAMINS, THERA 1 EACH TAB PO SCH (07:47)
[2016-11-11] MEDS: CLOPIDOGREL 75 MG TAB PO SCH (07:47)
[2016-11-11] MEDS: TAMSULOSIN 0.4 MG CAP.ER.24H PO SCH (07:47)
[2016-11-11 11:45] LABS: Glucose,Whole Blood 166 mg/dL (75-99)
--- NOTE | 2016-11-11 15:41 | P.PN ---
Subjective Principal diagnosis: CHF/influenza A This is a 71-year-old gentleman who follows regularly with Dr. Medina in the office. He has a known history of hypertension, hyperlipidemia, diabetes, coronary artery disease with prior bypass surgery, prior smoking history, most recently patient underwent a dual-chamber AICD in June of last year, also history of CVA in the past. He presented to the hospital with symptoms of worsening shortness of breath, positive PND and orthopnea, positive productive cough of yellow sputum with associated body aches and generalized malaise. Patient was most recently in the hospital in August with congestive cardiac failure. Patient also has past medical history of bladder cancer but is not receiving chemo or radiation therapy. Patient had been started on Entresto, states that he received the free one month and after that it was going to cost him $500, therefore he stopped taking it, went back on his usual cardiac meds. Chest x-ray on admission reveals stable cardiomegaly with no acute abnormality. EKG shows a normal sinus rhythm with nonspecific ST-T wave changes. Patient ruled in for influenza A. He was also initiated on IV Lasix for congestive heart failure. Creatinine today 1.3. Echocardiogram with Doppler study was performed which revealed an ejection fraction of 30-35%. Objective - Vital Signs Vital signs: Vital Signs Temp 98.1 F 11/11/16 12:00 Pulse 78 11/11/16 12:00 Resp 18 11/11/16 12:00 BP 136/78 11/11/16 12:00 Pulse Ox 96 11/11/16 12:00 Intake & Output 11/10/16 11/11/16 11/11/16 18:59 06:59 18:59 Intake Total 190 420 370 Output Total 1800 325 Balance 190 -1380 45 Weight 83.1 kg Intake: IV 10 0.9% NS FLUSH 10 mL 10 Oral 180 420 370 Output: Urine 1800 325 Other: # Voids 1 1 - Exam PHYSICAL EXAMINATION: HEENT: Head is atraumatic, normocephalic. Pupils equal, round. Neck is supple. There is elevated jugular venous pressure. HEART EXAMINATION: Heart S1 and S2 systolic murmur is heard. CHEST EXAMINATION: Lungs reveal scattered coarse rhonchi throughout. ABDOMEN: Soft, nontender. Bowel sounds are heard. No organomegaly noted. EXTREMITIES: 2+ peripheral pulses with no evidence of peripheral edema and no calf tenderness noted. NEUROLOGIC patient is awake, alert and oriented -3. - Labs CBC & Chem 7: 11/11/16 05:16 11/11/16 06:23 Labs: Abnormal Lab Results - Last 24 Hours (Table) 11/10/16 11/10/16 11/11/16 Range/Units 16:41 21:25 05:16 Plt Count 128 L (150-450) k/uL BUN (9-20) mg/dL Creatinine (0.66-1.25) mg/dL Glucose (74-99) mg/dL POC Glucose (mg/dL) 106 H 109 H (75-99) mg/dL 11/11/16 11/11/16 11/11/16 Range/Units 05:45 06:23 11:35 Plt Count (150-450) k/uL BUN 66 H (9-20) mg/dL Creatinine 1.34 H (0.66-1.25) mg/dL Glucose 106 H (74-99) mg/dL POC Glucose (mg/dL) 113 H 166 H (75-99) mg/dL Assessment and Plan Plan: Assessment and plan #1 symptoms of shortness of breath with associated productive cough of yellow sputum. Associated body aches and fatigue, positive for influenza A. #2 systolic congestive heart failure acute on chronic #3 ischemic cardio myopathy with prior AICD implantation #4 coronary artery disease with prior bypass surgery # 5 history of CVA #6 prior smoking history #7 diabetes #8 hypertension #9 hyperlipidemia #10 history of bladder cancer Plan We will continue the IV Lasix for 24 hours, check lytes BUN creatinine in the morning. Repeat chest x-ray tomorrow. DNP note has been reviewed, I agree with a documented findings and plan of care. Patient was seen and examined.
[2016-11-11] MEDS ORDERED: OSELTAMIVIR 75 MG CAP PO SCH (16:00)
[2016-11-11 16:30] VITALS: BP 130/74; PULSE 87; TEMP 98.5
--- NOTE | 2016-11-11 19:50 | P.DS ---
Providers Date of admission: 11/08/16 17:06 Expected date of discharge: 11/11/16 Attending physician: Shikha Gary Primary care physician: [facility] Course: This is a 71-year-old gentleman who follows regularly with Dr. Medina in the office. He has a known history of hypertension, hyperlipidemia, diabetes, coronary artery disease with prior bypass surgery, prior smoking history, most recently patient underwent a dual-chamber AICD in June of last year, also history of CVA in the past. He presented to the hospital with symptoms of worsening shortness of breath, positive PND and orthopnea, positive productive cough of yellow sputum with associated body aches and generalized malaise. Patient was most recently in the hospital in August with congestive cardiac failure. Patient also has past medical history of bladder cancer but is not receiving chemo or radiation therapy. Patient was noted to have influenza A that was positive on admission. Patient is not very compliant of multiple medications due to cost. Patient states to be feeling sightly better today. Patient was on diuretics as patient was noted to be in an acute exacerbation of CHF. Discharge diagnoses #1 influenza A infection per #2 acute exacerbation of systolic heart failure #3 history of bladder cancer #48 acute kidney injury #5 CAD #6 CVA #7 dyslipidemia on the day of discharge Lungs trace crackles appreciated however patient is able to lay flat no JVD appreciated Heart S1-S2 heard no murmurs appreciated Abdomen is soft nontender organomegaly Lower extremity is no edema noted Neurologically no focal motor or sensory deficit patient Patient will be discharged on Tamiflu for 5 days, Lasix 40 mg twice a day. Patient is recommended to take his medications and follow-up with Dr. Recinos in one week. . Plan - Discharge Summary New Discharge Prescriptions: Oseltamivir [Tamiflu] 75 mg PO DAILY #5 cap Discharge Medication List Clopidogrel [Plavix] 75 mg PO DAILY #30 tab 09/02/15 [Rx] Multivitamin/Iron/Folic Acid [Centrum Complete Multivit Tab] 1 tab PO DAILY 04/02 [History] Glucosamine-Chondr 500-400Mg 1 tab PO DAILY 08/25/16 [History] Furosemide [Lasix] 40 mg PO BID@0900,1600 #60 tab 09/11/16 [Rx] Nitroglycerin Sl Tabs [Nitrostat] 0.4 mg SUBLINGUAL Q5M PRN #0 tab 09/11/16 [Rx] Carvedilol [Coreg] 6.25 mg PO AC-BID 11/08/16 [History] Fish Oil/Dha/Epa [Fish Oil 1,200 mg Fish Oil] 1 cap PO DAILY 11/08/16 [History] Insulin NPH Human Isophane [NovoLIN N] 30 unit SQ DAILY 11/08/16 [History] Tamsulosin HCl [Flomax] 0.4 mg PO DAILY 11/08/16 [History] Oseltamivir [Tamiflu] 75 mg PO DAILY #5 cap 11/11/16 [Rx] Follow up Appointment(s)/Referral(s): Mike Medina MD [STAFF PHYSICIAN] - 1 Week (patient wanted to make own follow up apt.) Martin Blanton DO [Primary Care Provider] - 1-2 days (Patient wanted to make own follow up apt.) Discharge Disposition: HOME SELF-CARE
== END 2016-11-11 16:39 | disposition home or self-care (01) | DRG 291 ==
LOC: EC 14:17 → 4MS4W 17:06 → 6SEL 17:34
PROVIDERS: ADMIT Internal Medicine; ATTEND Internal Medicine
DX: I13.0 Hypertensive heart and chronic kidney disease with heart failure and stage 1 through stage 4 chronic kidney disease, or unspecified chronic kidney disease (principal); I50.23 Acute on chronic systolic (congestive) heart failure; N17.9 Acute kidney failure, unspecified; D69.6 Thrombocytopenia, unspecified; E11.22 Type 2 diabetes mellitus with diabetic chronic kidney disease; I25.5 Ischemic cardiomyopathy; N18.3 Chronic kidney disease, stage 3 (moderate); R31.9 Hematuria, unspecified; I25.10 Atherosclerotic heart disease of native coronary artery without angina pectoris; Z91.120 Patient's intentional underdosing of medication regimen due to financial hardship; J11.1 Influenza due to unidentified influenza virus with other respiratory manifestations; K21.9 Gastro-esophageal reflux disease without esophagitis; E78.5 Hyperlipidemia, unspecified; Z95.1 Presence of aortocoronary bypass graft; Z85.51 Personal history of malignant neoplasm of bladder; Z87.891 Personal history of nicotine dependence; Z95.810 Presence of automatic (implantable) cardiac defibrillator; I25.2 Old myocardial infarction; Z86.73 Personal history of transient ischemic attack (TIA), and cerebral infarction without residual deficits; Z79.02 Long term (current) use of antithrombotics/antiplatelets; Z83.3 Family history of diabetes mellitus; Z91.041 Radiographic dye allergy status; Z79.899 Other long term (current) drug therapy; T46.5X6A Underdosing of other antihypertensive drugs, initial encounter
CPT/HCPCS: 36415; 71020; 80048; 83036; 83880; 84484; 85025; 85610; 85730; 87502; 93005; 93306; 99285

== ENCOUNTER 2016-11-12 10:35 | Inpatient (IN) | payer OTHER ==
[2016-11-12] MEDS ORDERED: methylPREDNISolone SOD SUCCI 125 MG/2 ML VIAL IV STA ×3 (10:50→14:45)
[2016-11-12] MEDS ORDERED: IPRATROPIUM-ALBUTEROL 3 ML NEB INHALATION STA (10:50)
--- NOTE | 2016-11-12 10:55 | ED ---
General Adult HPI - General Chief complaint: Shortness of Breath Stated complaint: CHANTELLE Time Seen by Provider: 11/12/16 10:45 Source: patient, RN notes reviewed Mode of arrival: wheelchair Limitations: no limitations - History of Present Illness Initial comments: This is a 71-year-old male who presents emergency department complaining of shortness of breath. Patient states she was discharged from the hospital yesterday after being diagnosed with influenza. Patient states he tried to get out of the hospital soon as possible and now he thinks he overdid it. Patient states he has quite a long history of smoking but he did quit some 20 years ago. Patient states that the breathing got conservative worse this morning especially with any exertion. Patient denies any chest pain or pressure patient denies any palpitations. Patient denies any abdominal pain patient denies nausea vomiting diarrhea. Patient states she doesn't feel warmer chilled today. Patient denies any headache patient denies numbness weakness. Patient denies any lightheadedness dizziness or near-syncopal episode. - Related Data Home Medications Medication Instructions Recorded Confirmed Multivitamin/Iron/Folic Acid 1 tab PO DAILY 06/23/16 11/12/16 [Centrum Complete Multivit Tab] Glucosamine-Chondr 500-400Mg 1 tab PO DAILY 08/25/16 11/12/16 Carvedilol [Coreg] 6.25 mg PO AC-BID 11/08/16 11/12/16 Fish Oil/Dha/Epa [Fish Oil 1,200 1 cap PO DAILY 11/08/16 11/12/16 mg Fish Oil] Insulin NPH Human Isophane 30 unit SQ DAILY 11/08/16 11/12/16 [NovoLIN N] Tamsulosin HCl [Flomax] 0.4 mg PO DAILY 11/08/16 11/12/16 Previous Rx's Medication Instructions Recorded Clopidogrel [Plavix] 75 mg PO DAILY #30 tab 09/02/15 Furosemide [Lasix] 40 mg PO BID@0900,1600 #60 tab 09/11/16 Nitroglycerin Sl Tabs [Nitrostat] 0.4 mg SUBLINGUAL Q5M PRN #0 tab 09/11/16 Oseltamivir [Tamiflu] 75 mg PO DAILY #5 cap 11/11/16 Allergies Allergy/AdvReac Type Severity Reaction Status Date / Time Iodinated Contrast Media - Allergy Unknown Verified 11/12/16 10:56 Oral and [Iodinated Contrast Media - IV Dye] Review of Systems ROS Statement: Those systems with pertinent positive or pertinent negative responses have been documented in the HPI. ROS Other: All systems not noted in ROS Statement are negative. Past Medical History Past Medical History: Heart Failure, CVA/TIA, Diabetes Mellitus, GERD/Reflux, Hyperlipidemia, Hypertension, Myocardial Infarction ([place]) Additional Past Medical History / Comment(s): hematuria Last Myocardial Infarction Date:: 2009 History of Any Multi-Drug Resistant Organisms: None Reported Past Surgical History: Coronary Bypass/CABG, Pacemaker, Tonsillectomy Additional Past Surgical History / Comment(s): quadruple bypass Past Anesthesia/Blood Transfusion Reactions: No Reported Reaction Type of Cardiac Device: Permanent Pacemaker Device Placement Date:: 07/01/16 Past Psychological History: No Psychological Hx Reported Smoking Status: Former smoker Past Alcohol Use History: Occasional Additional Past Alcohol Use History / Comment(s): STARTED SMOKING AGE 16 (1960) , SMOKED 2PPD, QUIT 1990 Past Drug Use History: None Reported Additional Drug Use History / Comment(s): Patient states he drinks 1-2 beers/wk. - Past Family History Father Family Medical History: Diabetes Mellitus General Exam - General Exam Comments Initial Comments: GENERAL: Patient is well-developed and well-nourished. Patient is nontoxic and well- hydrated and is in no acute distress. ENT: Neck is soft and supple. No significant lymphadenopathy is noted. Oropharynx is clear. Moist mucous membranes. Neck has full range of motion without eliciting any pain. There is no thyroid enlargement and no masses were felt. EYES: The sclera were anicteric and conjunctiva were pink and moist. Extraocular movements were intact and pupils were equal round and reactive to light. Eyelids were unremarkable. PULMONARY: Patient has diminished breath sounds throughout CARDIOVASCULAR: There is a regular rate and rhythm without any murmurs gallops or rubs. Femoral pulses are equal bilaterally ABDOMEN: Soft and nontender with normal bowel sounds. No palpable organomegaly was noted. There is no palpable pulsatile mass. SKIN: Skin is clear with no lesions or rashes and otherwise unremarkable. NEUROLOGIC: Patient is alert and oriented x3. Cranial nerves II through XII are grossly intact. Motor and sensory are also intact. Normal speech, volume and content. Symmetrical smile. Cerebellar exam grossly intact. MUSCULOSKELETAL: Normal extremities with adequate strength and full range of motion. No lower extremity swelling or edema. No calf tenderness. LYMPHATICS: No significant lymphadenopathy is noted PSYCHIATRIC: Normal psychiatric evaluation. Normal interpersonal interactions appears functionally intact in deals appropriately with others. No signs of depression. No signs of anxiety. No delusions. No hallucinations. Limitations: no limitations Course Vital Signs 11/12/16 11/12/16 11/12/16 10:39 11:14 11:23 Temperature 98.0 F Pulse Rate 63 61 71 Respiratory 24 Rate Blood Pressure 125/75 O2 Sat by Pulse 94 L Oximetry Medical Decision Making - Medical Decision Making EKG shows a paced rhythm at 63 bpm CO interval 196 QRS is 128 QT interval is 454 QTC is 464. Patient's EKG shows T-wave inversions in the inferior leads which are old when I compare them to an old EKG. Patient also has some PVCs and this EKG. CT shows no acute pulmonary embolism. Patient still felt short of breath and remove most oxygen. Gave the patient multiple steroid treatments as well as a febrile treatments and he was feeling better but not back to his baseline. I spoke with Dr. Ford he agreed to admit the patient and I wrote admitting orders and consult pulmonary. - Lab Data Result diagrams: 11/12/16 11:25 11/12/16 11:25 Lab Results 11/12/16 11/12/16 11/12/16 Range/Units 11:25 11:25 11:25 WBC 5.4 (3.8-10.6) k/uL RBC 5.27 (4.30-5.90) m/uL Hgb 15.1 (13.0-17.5) gm/dL Hct 44.7 (39.0-53.0) % MCV 84.9 (80.0-100.0) fL MCH 28.7 (25.0-35.0) pg MCHC 33.8 (31.0-37.0) g/dL RDW 13.4 (11.5-15.5) % Plt Count 109 L (150-450) k/uL Neutrophils % 62 % Lymphocytes % 21 % Monocytes % 11 % Eosinophils % 0 % Basophils % 1 % Neutrophils # 3.3 (1.3-7.7) k/uL Lymphocytes # 1.1 (1.0-4.8) k/uL Monocytes # 0.6 (0-1.0) k/uL Eosinophils # 0.0 (0-0.7) k/uL Basophils # 0.1 (0-0.2) k/uL PT (9.0-12.0) sec INR (<1.1) APTT (22.0-30.0) sec D-Dimer (<0.60) mg/L FEU Sodium 141 (137-145) mmol/L Potassium 4.3 (3.5-5.1) mmol/L Chloride 99 (98-107) mmol/L Carbon Dioxide 28 (22-30) mmol/L Anion Gap 14 mmol/L BUN 48 H (9-20) mg/dL Creatinine 1.24 (0.66-1.25) mg/dL Est GFR (MDRD) Af Amer >60 (>60 ml/min/1.73 sqM) Est GFR (MDRD) Non-Af 57 (>60 ml/min/1.73 sqM) Glucose 169 H (74-99) mg/dL Calcium 9.1 (8.4-10.2) mg/dL Magnesium 2.1 (1.6-2.3) mg/dL Total Bilirubin 1.0 (0.2-1.3) mg/dL AST 25 (17-59) U/L ALT 36 (21-72) U/L Alkaline Phosphatase 79 (38-126) U/L Total Creatine Kinase 31 L (55-170) U/L CK-MB (CK-2) 0.6 (0.0-2.4) ng/mL CK-MB (CK-2) Rel Index 1.9 Troponin I 0.047 H* (0.000-0.034) ng/mL NT-Pro-B Natriuret Pep pg/mL Total Protein 7.5 (6.3-8.2) g/dL Albumin 4.0 (3.5-5.0) g/dL 11/12/16 11/12/16 Range/Units 11:25 11:25 WBC (3.8-10.6) k/uL RBC (4.30-5.90) m/uL Hgb (13.0-17.5) gm/dL Hct (39.0-53.0) % MCV (80.0-100.0) fL MCH (25.0-35.0) pg MCHC (31.0-37.0) g/dL RDW (11.5-15.5) % Plt Count (150-450) k/uL Neutrophils % % Lymphocytes % % Monocytes % % Eosinophils % % Basophils % % Neutrophils # (1.3-7.7) k/uL Lymphocytes # (1.0-4.8) k/uL Monocytes # (0-1.0) k/uL Eosinophils # (0-0.7) k/uL Basophils # (0-0.2) k/uL PT 10.5 (9.0-12.0) sec INR 1.0 (<1.1) APTT 22.6 (22.0-30.0) sec D-Dimer 1.26 H (<0.60) mg/L FEU Sodium (137-145) mmol/L Potassium (3.5-5.1) mmol/L Chloride (98-107) mmol/L Carbon Dioxide (22-30) mmol/L Anion Gap mmol/L BUN (9-20) mg/dL Creatinine (0.66-1.25) mg/dL Est GFR (MDRD) Af Amer (>60 ml/min/1.73 sqM) Est GFR (MDRD) Non-Af (>60 ml/min/1.73 sqM) Glucose (74-99) mg/dL Calcium (8.4-10.2) mg/dL Magnesium (1.6-2.3) mg/dL Total Bilirubin (0.2-1.3) mg/dL AST (17-59) U/L ALT (21-72) U/L Alkaline Phosphatase (38-126) U/L Total Creatine Kinase (55-170) U/L CK-MB (CK-2) (0.0-2.4) ng/mL CK-MB (CK-2) Rel Index Troponin I (0.000-0.034) ng/mL NT-Pro-B Natriuret Pep 5900 pg/mL Total Protein (6.3-8.2) g/dL Albumin (3.5-5.0) g/dL Critical Care Time Critical Care Time: Yes Total Critical Care Time: 35 Disposition Clinical Impression: Acute exacerbation of chronic obstructive airways disease, Influenza A Disposition: ADMITTED IP TO THIS [facility] Time of Disposition: 15:53
[2016-11-12 11:35] LABS: Basophils # (A) 0.1 k/uL (0-0.2); Basophils % (A) 1 %; CH 28.6; CHCM 33.8; Eosinophils % (A) 0 %; HCT 44.7 % (39.0-53.0); HDW 2.93; HGB 15.1 gm/dL (13.0-17.5); Luc # (Auto) 0.24; Luc % (Auto) 5; Lymphocytes # (A) 1.1 k/uL (1.0-4.8); Lymphocytes % (A) 21 %; MCH 28.7 pg (25.0-35.0); MCHC 33.8 g/dL (31.0-37.0); MCV 84.9 fL (80.0-100.0); Mean Platelet Volume 8.3; Monocytes # (A) 0.6 k/uL (0-1.0); Monocytes % (A) 11 %; Neutrophils # (A) 3.3 k/uL (1.3-7.7); Neutrophils % (A) 62 %; RBC 5.27 m/uL (4.30-5.90); RDW 13.4 % (11.5-15.5); WBC 5.4 k/uL (3.8-10.6); WBC (Perox) 5.35
[2016-11-12 11:46] LABS: ALT 36 U/L (21-72); AST 25 U/L (17-59); Alkaline Phosphatase 79 U/L (38-126); Anion Gap 14 mmol/L; Blood Urea Nitrogen 48 mg/dL (9-20); Calcium 9.1 mg/dL (8.4-10.2); Carbon Dioxide 28 mmol/L (22-30); Chloride 99 mmol/L (98-107); Glucose 169 mg/dL (74-99); Magnesium 2.1 mg/dL (1.6-2.3); Non-African American GFR(MDRD) 57 (>60 ml/min/1.73 sqM); Potassium 4.3 mmol/L (3.5-5.1); Sodium 141 mmol/L (137-145); Total Protein 7.5 g/dL (6.3-8.2)
--- NOTE | 2016-11-12 11:51 | XR ---
EXAMINATION TYPE: XR chest 2V DATE OF EXAM: 11/12/2016 11:47 AM COMPARISON: 11/09/16 HISTORY: Shortness of breath TECHNIQUE: Frontal and lateral views of the chest are obtained. FINDINGS: Scattered senescent parenchymal changes noted. Hyperinflation compatible with COPD. No evidence for infiltrate. No evidence for atelectasis. Heart size is stable. Mediastinal structures are stable and grossly unremarkable. No evidence for hilar prominence. Degenerative changes dorsal spine. IMPRESSION: 1. No evidence for acute pulmonary disease.
[2016-11-12 12:11] LABS: Creatine Kinase MB 0.6 ng/mL (0.0-2.4)
[2016-11-12 12:12] LABS: Partial Thromboplastin Time 22.6 sec (22.0-30.0); Prothrombin Time 10.5 sec (9.0-12.0)
[2016-11-12 12:14] LABS: Troponin I 0.047 ng/mL (0.000-0.034)
[2016-11-12] MEDS ORDERED: RX INFO: IV CONTRAST WAS GIVEN 1 EACH MISC MISCELLANE PRN (12:49)
[2016-11-12] MEDS ORDERED: FAMOTIDINE 20 MG/2 ML VIAL IV STA (12:58)
[2016-11-12] MEDS ORDERED: diphenhydrAMINE 50 MG/ML 1 ML VIAL IVP STA ×2 (12:58→14:48)
--- NOTE | 2016-11-12 14:39 | CT ---
CT CHEST FOR PULMONARY EMBOLISM. EXAMINATION TYPE: CT chest angio for PE DATE OF EXAM: 11/12/2016 2:07 PM INDICATION: CHANTELLE CT DLP: 582 mGycm, Automated exposure control for dose reduction was used. CONTRAST: Patient injected with 98 mL of Visipaque 320. Patient was premedicated but became very hot and itching following the injection. Patient was returned to the emergency room with notification. COMPARISON: 09/09/2016 TECHNIQUE: CT of the chest is performed on a spiral scan at 2 mm thick sections. Study is performed with intravenous contrast timed for evaluation for pulmonary embolism. This will limit additional po rtions of the evaluation. 3-D MIP images reconstructed by the technologist are reviewed on the compu ter in the coronal and sagittal planes. FINDINGS: No persistent filling defects are evident to suggest an acute pulmonary embolism. Multiple scattered small lymph nodes are within the mediastinum including the pretracheal space aorto pulmonic window and subcarinal space a lymph node in the left paratracheal region measures 1.1 cm kalin r the aortopulmonic window which is enlarged by CT criteria. No peribronchial adenopathy is evident. Adenopathy was present previously. Previous small pleural effusions have resolved. The ascending aorta diameter at the level of the main pulmonary artery is 3.5 cm. The main pulmonary artery diameter at the bifurcation is 3.4 cm. There is a 0.3 cm punctate density in the periphery of the left apex. This was present previously. Co uple of blebs are within the right apex. There is fullness to the left lobe of the thyroid. Consider additional evaluation with ultrasound. Th is may extend into the substernal space. Airway appears normal. There is a hypodensity within the medial right lobe liver which may have some central enhancement. Th is measures 1.1 cm in diameter. A second 1.7 cm hypodensities within the right lobe liver measuring 3 Hounsfield units more compatible with a cyst. Scattered small gallstones are present. IMPRESSIONS: 1. No acute pulmonary embolism. 2. Cholelithiasis. 3. Stable hypodensities within the liver. One is a cyst. The second may have some tiny central enhanc ement. Follow-up with ultrasound can be performed. 4. Enlargement of the left lobe thyroid. Additional evaluation with ultrasound is recommended.
[2016-11-12] MEDS ORDERED: NITROGLYCERIN SL TABS 0.4 MG TAB SUBLINGUAL PRN (16:35)
[2016-11-12] MEDS: IPRATROPIUM-ALBUTEROL 3 ML NEB INHALATION PRN ×2 (16:55→20:12)
[2016-11-12] MEDS: methylPREDNISolone SOD SUCCI 125 MG/2 ML VIAL IV SCH ×2 (19:33→23:37)
[2016-11-12] MEDS: CARVEDILOL 6.25 MG TAB PO SCH (19:34)
[2016-11-12 20:22] VITALS: BMI 32.4
[2016-11-12] MEDS: TEMAZEPAM 15 MG CAP PO PRN (21:36)
[2016-11-13] MEDS: methylPREDNISolone SOD SUCCI 125 MG/2 ML VIAL IV SCH (06:42)
[2016-11-13] MEDS: CARVEDILOL 6.25 MG TAB PO SCH ×2 (06:42→16:50)
[2016-11-13 06:49] LABS: Glucose,Whole Blood 247 mg/dL (75-99)
[2016-11-13] MEDS: OSELTAMIVIR 75 MG CAP PO SCH (08:33)
[2016-11-13] MEDS: FUROSEMIDE 40 MG TAB PO SCH ×2 (08:33→16:50)
[2016-11-13] MEDS: CLOPIDOGREL 75 MG TAB PO SCH (08:33)
[2016-11-13] MEDS: TAMSULOSIN 0.4 MG CAP.ER.24H PO SCH (08:33)
[2016-11-13] MEDS ORDERED: INSULIN NPH 300 UNIT/3 ML VIAL SQ SCH (09:00)
[2016-11-13] MEDS: IPRATROPIUM-ALBUTEROL 3 ML NEB INHALATION PRN ×2 (09:41→19:45)
--- NOTE | 2016-11-13 10:44 | P.CNPUL ---
History of Present Illness Consult date: 11/13/16 Reason for consult: dyspnea, cough, COPD Chief complaint: Shortness of breath difficulty breathing History of present illness: This is a 71-year-old gentleman with probable underlying COPD. He smoked for about 35 years at 2 packs a day. Quit a number years back. Started smoking smoking an early age. Has never seen a lung doctor before. The patient presents to the emergency department with complaints of shortness of breath. He was recently discharged from the hospital diagnosed with "" influenza. Patient states that he feeling much better today. Patient states that the breathing treatments have really helped. His complaints included shortness of breath coughing and wheezing. Tightness in his chest. No fever or chills. No nausea vomiting or diarrhea. Review of Systems A 12 point review of system is positive for chest congestion and coughing wheezing shortness of breath. Minimal phlegm production. Most of the phlegm is very thick and hard. It doesn't have much color to it out all. No coughing up of blood. Past Medical History Past Medical History: Heart Failure, CVA/TIA, Diabetes Mellitus, GERD/Reflux, Hyperlipidemia, Hypertension, Myocardial Infarction ([place]) Additional Past Medical History / Comment(s): hematuria Last Myocardial Infarction Date:: 2009 History of Any Multi-Drug Resistant Organisms: None Reported Past Surgical History: Coronary Bypass/CABG, Pacemaker, Tonsillectomy Additional Past Surgical History / Comment(s): quadruple bypass Past Anesthesia/Blood Transfusion Reactions: No Reported Reaction Type of Cardiac Device: Permanent Pacemaker Device Placement Date:: 07/01/16 Past Psychological History: No Psychological Hx Reported Smoking Status: Former smoker Past Alcohol Use History: Occasional Additional Past Alcohol Use History / Comment(s): STARTED SMOKING AGE 16 (1960) , SMOKED 2PPD, QUIT 1990 Past Drug Use History: None Reported Additional Drug Use History / Comment(s): Patient states he drinks 1-2 beers/wk. - Past Family History Father Family Medical History: Diabetes Mellitus Medications and Allergies Home Medications Medication Instructions Recorded Confirmed Type Multivitamin/Iron/Folic Acid 1 tab PO DAILY 06/23/16 11/12/16 History [Centrum Complete Multivit Tab] Glucosamine-Chondr 500-400Mg 1 tab PO DAILY 08/25/16 11/12/16 History Carvedilol [Coreg] 6.25 mg PO AC-BID 11/08/16 11/12/16 History Fish Oil/Dha/Epa [Fish Oil 1,200 1 cap PO DAILY 11/08/16 11/12/16 History mg Fish Oil] Insulin NPH Human Isophane 30 unit SQ DAILY 11/08/16 11/12/16 History [NovoLIN N] Tamsulosin HCl [Flomax] 0.4 mg PO DAILY 11/08/16 11/12/16 History Allergies Allergy/AdvReac Type Severity Reaction Status Date / Time Iodinated Contrast Media - Allergy Unknown Verified 11/12/16 10:56 Oral and [Iodinated Contrast Media - IV Dye] Physical Exam Osteopathic Statement: *. No significant issues noted on an osteopathic structural exam other than those noted in the History and Physical/Consult. Vitals: Vital Signs Temp Pulse Pulse Resp BP BP Pulse Ox 11/13/16 09:59 60 11/13/16 09:44 95 11/13/16 09:43 60 11/13/16 08:42 98.3 F 59 L 16 112/66 93 L 11/13/16 04:00 96.9 F L 63 18 144/76 97 11/13/16 00:00 65 16 153/67 98 11/12/16 20:30 78 11/12/16 20:17 78 11/12/16 19:37 97.0 F L 62 18 105/76 100 11/12/16 18:20 97.8 F 66 18 117/75 98 11/12/16 18:07 96.9 F L 72 18 137/75 98 11/12/16 17:09 60 11/12/16 16:58 60 11/12/16 16:17 96.9 F L 60 20 128/74 97 Intake and Output 11/12/16 11/13/16 11/13/16 22:59 06:59 14:59 Intake Total 200 Output Total 400 Balance -400 200 Intake: Oral 200 Output: Urine 400 Other: Voiding Method Urinal Urinal Weight 85.729 kg 82.1 kg No acute distress, oriented 3. HEENT examination is grossly unremarkable. Mucous membranes are moist. No oral lesions. Neck supple. Full range of motion. No adenopathy or thyromegaly. Cardiovascular examination reveals regular rhythm rate. S1-S2 normal. No S3- S4 or murmur. Lungs reveal few scattered mild rhonchi. No wheezes. No crackles. Breath sounds are equal. Abdomen soft bowel sounds are heard. Extremities are intact. Results - Laboratory Findings CBC and BMP: 11/12/16 11:25 11/12/16 11:25 PT/INR, D-dimer PT 10.5 sec (9.0-12.0) 11/12/16 11:25 INR 1.0 (<1.1) 11/12/16 11:25 D-Dimer 1.26 mg/L FEU (<0.60) H 11/12/16 11:25 Abnormal lab findings: Abnormal Labs 11/13/16 06:48 POC Glucose (mg/dL) 247 H - Diagnostic Findings Chest x-ray: image reviewed CT scan - chest: image reviewed (Chest x-ray, CAT scan, labs, medications are all reviewed.) Assessment and Plan (1) Acute exacerbation of chronic obstructive airways disease Status: Acute (2) Influenza A Status: Acute Plan: Plan I review the medications labs x-rays. The patient should be started on standard therapy for but sounds like a COPD exacerbation. This would include systemic corticosteroids a combination long-acting beta agonist/inhaled corticosteroid short and short acting beta agonist short acting muscarinic antagonist and an oral antibiotic. He likely could be discharged home. I will discharge him home to finish up his Tamiflu short course of oral antibiotics and a prednisone burst and taper. He can be seen in the office in follow-up to better evaluate his underlying COPD with pulmonary function testing. Time with Patient: Greater than 30
--- NOTE | 2016-11-13 16:52 | P.HPIM ---
History of Present Illness H&P Date: 11/13/16 71 year-old gentleman who was recently discharged from the hospital for symptoms of difficulty breathing secondary to an acute exacerbation of congestive heart failure. Patient was also diagnosed with influenza A at that time. 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 Patient stated his breathing got worse. In the hospital. Patient does have a history of tobacco use. In the ER patient was noted to have difficulty breathing with some wheezing. A CT angiogram of the chest was done the was ruled out. Patient was started on diuretics, IV steroids and breathing treatments. A pulmonary consult was also placed. Patient states to be feeling significantly better after the breathing treatment. Denies having any fever, chills, nausea, vomiting or diarrhea at this time. Does have a cough that is productive in nature up whitish to yellowish sputum minimal amounts. Review of Systems All systems: negative (Noted in HPI) Past Medical History Past Medical History: Heart Failure, CVA/TIA, Diabetes Mellitus, GERD/Reflux, Hyperlipidemia, Hypertension, Myocardial Infarction ([place]) Additional Past Medical History / Comment(s): hematuria Last Myocardial Infarction Date:: 2009 History of Any Multi-Drug Resistant Organisms: None Reported Past Surgical History: Coronary Bypass/CABG, Pacemaker, Tonsillectomy Additional Past Surgical History / Comment(s): quadruple bypass Past Anesthesia/Blood Transfusion Reactions: No Reported Reaction Type of Cardiac Device: Permanent Pacemaker Device Placement Date:: 07/01/16 Past Psychological History: No Psychological Hx Reported Smoking Status: Former smoker Past Alcohol Use History: Occasional Additional Past Alcohol Use History / Comment(s): STARTED SMOKING AGE 16 (1962) , SMOKED 2PPD, QUIT 1990 Past Drug Use History: None Reported Additional Drug Use History / Comment(s): Patient states he drinks 1-2 beers/wk. - Past Family History Father Family Medical History: Diabetes Mellitus Medications and Allergies Home Medications Medication Instructions Recorded Confirmed Type Multivitamin/Iron/Folic Acid 1 tab PO DAILY 06/23/16 11/12/16 History [Centrum Complete Multivit Tab] Glucosamine-Chondr 500-400Mg 1 tab PO DAILY 08/25/16 11/12/16 History Carvedilol [Coreg] 6.25 mg PO AC-BID 11/08/16 11/12/16 History Fish Oil/Dha/Epa [Fish Oil 1,200 1 cap PO DAILY 11/08/16 11/12/16 History mg Fish Oil] Insulin NPH Human Isophane 30 unit SQ DAILY 11/08/16 11/12/16 History [NovoLIN N] Tamsulosin HCl [Flomax] 0.4 mg PO DAILY 11/08/16 11/12/16 History Allergies Allergy/AdvReac Type Severity Reaction Status Date / Time Iodinated Contrast Media - Allergy Unknown Verified 11/12/16 10:56 Oral and [Iodinated Contrast Media - IV Dye] Physical Exam Vitals: Vital Signs Temp Pulse Pulse Resp BP BP Pulse Ox 11/13/16 12:00 98.1 F 61 16 133/80 98 11/13/16 09:59 60 11/13/16 09:44 95 11/13/16 09:43 60 11/13/16 08:42 98.3 F 59 L 16 112/66 93 L 11/13/16 04:00 96.9 F L 63 18 144/76 97 11/13/16 00:00 65 16 153/67 98 11/12/16 20:30 78 11/12/16 20:17 78 11/12/16 19:37 97.0 F L 62 18 105/76 100 11/12/16 18:20 97.8 F 66 18 117/75 98 11/12/16 18:07 96.9 F L 72 18 137/75 98 11/12/16 17:09 60 11/12/16 16:58 60 Intake and Output 11/13/16 11/13/16 11/13/16 06:59 14:59 22:59 Intake Total 536 Output Total 400 560 Balance -400 -24 Intake: Oral 536 Output: Urine 400 560 Other: Voiding Method Urinal Weight 82.1 kg Physical exam Gen. appearance oriented 3 in no distress Neck is supple no JVD Lungs good air entry clear to auscultation no rhonchi or wheezing Heart S1-S2 heard regular rate and rhythm no murmurs appreciated Abdomen is soft nontender no organomegaly bowel sounds are intact Neurologically cranial nerves II-12 grossly intact no focal motor or sensory deficits noted Skin no abnormalities appreciated Results CBC & Chem 7: 11/12/16 11:25 11/12/16 11:25 Labs: Abnormal Lab Results - Last 24 Hours (Table) 11/13/16 Range/Units 06:48 POC Glucose (mg/dL) 247 H (75-99) mg/dL Thrombosis Risk Factor Assmnt - Choose All That Apply Any of the Below Risk Factors Present?: Yes Each Factor Represents 1 point: Abnormal pulmonary function (COPD) Each Risk Factor Represents 2 Points: Age 61-74 years Thrombosis Risk Factor Assessment Total Risk Factor Score: 3 Thrombosis Risk Factor Assessment Level: Moderate Risk Assessment and Plan Plan: #1 acute exacerbation of COPD #2 recent influenza A infection #3 compensated systolic heart failure #4 bladder cancer #5 ongoing tobacco use #6 CVA #7 CAD Plan Continue breathing treatments, Tamiflu, Lasix 40 mg every twice a day. Patient was evaluated by pulmonology recommendations are noted. Patient could likely be monitored for another 24 hours and be discharged thereafter. Patient is able to ambulate and is doing really well today.
[2016-11-13 17:13] LABS: Glucose,Whole Blood 405 mg/dL (75-99)
[2016-11-13] MEDS ORDERED: INSULIN REGULAR BOLUS (FROM DRIP BAG) IV ONE (17:26)
[2016-11-13] MEDS ORDERED: INSULIN REGULAR 100 UNIT in SODIUM CHLORIDE 0.9% 100 ML IV SCH (17:30)
[2016-11-13 18:20] LABS: Glucose,Whole Blood 442 mg/dL (75-99)
[2016-11-13] MEDS: INSULIN LISPRO (humaLOG) 300 UNIT/3 ML VIAL SQ SCH (18:51)
[2016-11-13 19:26] LABS: Glucose,Whole Blood 365 mg/dL (75-99)
[2016-11-13 19:42] LABS: Hemoglobin A1C 7.6 % (4.2-6.1)
[2016-11-13] MEDS: SYMBICORT 160-4.5 MCG INHALER INHALATION SCH (19:45)
[2016-11-13] MEDS: SULFAMETHOX-TMP 800-160MG 1 EACH TAB PO SCH (20:39)
[2016-11-13 21:09] LABS: Glucose,Whole Blood 221 mg/dL (75-99)
[2016-11-13 21:32] LABS: Glucose,Whole Blood 213 mg/dL (75-99)
[2016-11-13] MEDS: TEMAZEPAM 15 MG CAP PO PRN (22:32)
[2016-11-13 22:50] LABS: Glucose,Whole Blood 121 mg/dL (75-99)
[2016-11-13 23:39] LABS: Glucose,Whole Blood 158 mg/dL (75-99)
[2016-11-14 01:13] LABS: Glucose,Whole Blood 127 mg/dL (75-99)
[2016-11-14 02:26] VITALS: RESP 16
[2016-11-14 03:00] LABS: Glucose,Whole Blood 160 mg/dL (75-99)
[2016-11-14 04:50] LABS: Glucose,Whole Blood 122 mg/dL (75-99)
[2016-11-14 05:55] LABS: Glucose,Whole Blood 144 mg/dL (75-99)
[2016-11-14 07:45] LABS: Glucose,Whole Blood 148 mg/dL (75-99)
[2016-11-14] MEDS: IPRATROPIUM-ALBUTEROL 3 ML NEB INHALATION PRN ×2 (08:14→11:52)
[2016-11-14] MEDS: SYMBICORT 160-4.5 MCG INHALER INHALATION SCH (08:14)
[2016-11-14] MEDS: FUROSEMIDE 40 MG TAB PO SCH (08:53)
[2016-11-14] MEDS: CLOPIDOGREL 75 MG TAB PO SCH (08:53)
[2016-11-14] MEDS: CARVEDILOL 6.25 MG TAB PO SCH (08:53)
[2016-11-14] MEDS: SULFAMETHOX-TMP 800-160MG 1 EACH TAB PO SCH (08:53)
[2016-11-14] MEDS: TAMSULOSIN 0.4 MG CAP.ER.24H PO SCH (08:53)
[2016-11-14] MEDS: OSELTAMIVIR 75 MG CAP PO SCH (08:53)
[2016-11-14] MEDS ORDERED: predniSONE 10 MG TAB PO SCH (09:00)
[2016-11-14] MEDS: INSULIN LISPRO (humaLOG) 300 UNIT/3 ML VIAL SQ SCH ×2 (09:11→12:22)
[2016-11-14 09:47] LABS: Glucose,Whole Blood 239 mg/dL (75-99)
--- NOTE | 2016-11-14 11:26 | P.PN ---
Subjective Progress note dated 11/14/2016 This is a 71-year-old male with a history of underlying COPD. He did smoke heavily in the past. He was admitted with a diagnosis of influenza and COPD exacerbation. Doing much better today. The breathing treatments have really helped. He is currently on Tamiflu 75 mg twice a day for 5 days. He is also on the usual medications. Anyway he wants to go home today. Still wearing oxygen. We'll have to check his room air sat before discharge. He does have a history of CHF CVA diabetes GERD hyperlipidemia hypertension and myocardial infarction. Objective - Vital Signs Vital signs: Vital Signs Temp 97.9 F 11/14/16 02:25 Pulse 62 11/14/16 08:30 Resp 16 11/14/16 02:25 BP 111/69 11/14/16 02:25 Pulse Ox 99 11/13/16 20:00 Intake & Output 11/13/16 11/14/16 11/14/16 18:59 06:59 18:59 Intake Total 536 590.735 200 Output Total 560 600 Balance -24 -9.265 200 Weight 81.5 kg Intake: Intake, IV Titration 40.735 Amount Insulin Regular 100 unit 40.735 In Sodium Chloride 0.9% 100 ml @ Titrate IV .Q0M BELLA Rx#:[id number] Oral 536 550 200 Output: Urine 560 600 Other: Voiding Method Urinal # Voids 2 - Exam No acute distress, oriented 3. Sitting at the bedside. No respiratory difficulty. HEENT examination is grossly unremarkable. Neck supple. Full range of motion. No adenopathy. Neck veins are flat. Cardiovascular examination reveals regular rhythm rate. S1-S2 normal. No S3- S4 or murmur. Lungs reveal a few scattered mild expiratory rhonchi. No wheezes. No crackles. Breath sounds are greatly improved. Abdomen soft bowel sounds are heard. Extremities are intact. - Labs CBC & Chem 7: 11/12/16 11:25 11/12/16 11:25 Labs: Abnormal Lab Results - Last 24 Hours (Table) 11/13/16 11/13/16 11/13/16 Range/Units 17:11 18:18 19:24 POC Glucose (mg/dL) 405 H 442 H 365 H (75-99) mg/dL 11/13/16 11/13/16 11/13/16 Range/Units 20:37 21:29 22:29 POC Glucose (mg/dL) 221 H 213 H 121 H (75-99) mg/dL 11/13/16 11/14/16 11/14/16 Range/Units 23:29 01:04 02:42 POC Glucose (mg/dL) 158 H 127 H 160 H (75-99) mg/dL 11/14/16 11/14/16 11/14/16 Range/Units 04:45 05:48 07:42 POC Glucose (mg/dL) 122 H 144 H 148 H (75-99) mg/dL 11/14/16 Range/Units 09:43 POC Glucose (mg/dL) 239 H (75-99) mg/dL Assessment and Plan (1) Acute exacerbation of chronic obstructive airways disease Status: Acute (2) Influenza A Status: Acute Plan: Plan I review the medications labs x-rays. The patient should be started on standard therapy for but sounds like a COPD exacerbation. This would include systemic corticosteroids a combination long-acting beta agonist/inhaled corticosteroid short and short acting beta agonist short acting muscarinic antagonist and an oral antibiotic. He likely could be discharged home. I will discharge him home to finish up his Tamiflu short course of oral antibiotics and a prednisone burst and taper. He can be seen in the office in follow-up to better evaluate his underlying COPD with pulmonary function testing. Plan dated 11/14/2016 The patient should finish out his 5 days of Tamiflu 75 mg twice a day. The patient could be discharged home on a rescue inhaler such as albuterol or Ventolin. In addition he should be discharged home on a combination inhaled corticosteroid and long-acting beta agonist. Finally, I short course of oral antibiotics as well as a prednisone burst and taper will be appropriate. He should follow-up in our office for pulmonary function testing. Additional recommendations suggestions are forthcoming. Time with Patient: Less than 30
[2016-11-14 11:50] LABS: Glucose,Whole Blood 118 mg/dL (75-99)
[2016-11-14 13:36] VITALS: BP 117/75; PULSE 61; TEMP 96.9
[2016-11-15] MEDS ORDERED: NON-FORMULARY DRUG (Fish Oil/Dha/Epa [Fish Oil 1,200 Mg Fish Oil] 1 CAP) PO SCH (09:00)
[2016-11-15] MEDS ORDERED: NON-FORMULARY DRUG (Glucosamine-Chondr 500-400mg 1 TAB) PO SCH (09:00)
--- NOTE | 2016-11-15 11:46 | DS ---
DATE OF ADMISSION: 11/12/2016 DATE OF DISCHARGE: 11/14/2016 FINAL DIAGNOSES: 1. Chronic obstructive pulmonary disease exacerbation, with acute purulent tracheobronchitis. 2. Recent influenza A infection. 3. Congestive heart failure with chronic systolic dysfunction. 4. History of bladder cancer. 5. History of nicotine dependence. 6. History of congestive heart failure with chronic systolic dysfunction, ejection 20-25% with ischemic cardiomyopathy. 7. Chronic kidney disease, stage III. 8. History gastroesophageal reflux disease. 9. History of essential hypertension. 10. History of myocardial infarction. 11. History of hematuria. 12. History of coronary artery disease, coronary artery bypass grafting. 13. History of pacemaker. 14. Remote history of nicotine dependence. DISCHARGE DISPOSITION: The patient will be discharged in a stable condition with guarded prognosis. Dr. Goetz cleared the discharge. HISTORY OF PRESENT ILLNESS: This 71 -year-old gentleman with a past medical history of multiple medical problems was admitted with features of COPD exacerbation. Treated symptomatically. Patient improved significantly. On exam, vitals are stable. CARDIOVASCULAR: S1, S2 muffled. Respiratory: Scattered rhonchi. . DISCHARGE ADVICE AND MEDICATIONS: 1. Discharge diet is cardiac. 2. Activity limited until follow-up. 3. Follow up with Dr. Goetz. 4. Follow up with Dr. Blanton. 5. Recommended medications will be: Symbicort 160/4.5 2 puffs b.i.d. 6. Coreg 6.25 mg b.i.d. 7. Plavix 75 milligrams p.o. daily. 8. Fish oil 1 p.o. daily. 9. Lasix 40 mg p.o. b.i.d. 10. Glucosamine chondroitin 1 tablet p.o. daily. 11. Insulin NPH 30 units subcutaneously daily. 12. Albuterol q.i.d. and p.r.n. 13. Multivitamins 1 p.o. daily. 14. Nitrostat 0.4 sublingually p.r.n. 15. Tamiflu 75 mg p.o. daily. Continue the home dose. 16. Bactrim DS one p.o. b.i.d. for 5 days. 17. Flomax 0.4 daily. 18. Prednisone taper that will be 40 mg daily for 3 days, 30 for 3 days; 20 for 3 days, 10 for 3 days and stop. MTDD
[2016-11-15] MEDS ORDERED: MULTIVITAMINS, THERA 1 EACH TAB PO SCH (12:00)
== END 2016-11-14 15:02 | disposition home or self-care (01) | DRG 191 ==
LOC: EC 10:35 → 6SEL 15:53 → 3SUR 11-13 17:51
PROVIDERS: ADMIT Internal Medicine; ATTEND Internal Medicine
DX: J44.1 Chronic obstructive pulmonary disease with (acute) exacerbation (principal); I50.22 Chronic systolic (congestive) heart failure; E11.22 Type 2 diabetes mellitus with diabetic chronic kidney disease; I13.0 Hypertensive heart and chronic kidney disease with heart failure and stage 1 through stage 4 chronic kidney disease, or unspecified chronic kidney disease; J44.0 Chronic obstructive pulmonary disease with (acute) lower respiratory infection; J20.9 Acute bronchitis, unspecified; I49.3 Ventricular premature depolarization; I25.5 Ischemic cardiomyopathy; N18.3 Chronic kidney disease, stage 3 (moderate); I25.2 Old myocardial infarction; I25.10 Atherosclerotic heart disease of native coronary artery without angina pectoris; K21.9 Gastro-esophageal reflux disease without esophagitis; E78.5 Hyperlipidemia, unspecified; Z95.0 Presence of cardiac pacemaker; Z95.1 Presence of aortocoronary bypass graft; Z86.73 Personal history of transient ischemic attack (TIA), and cerebral infarction without residual deficits; Z83.3 Family history of diabetes mellitus; Z87.891 Personal history of nicotine dependence; Z91.041 Radiographic dye allergy status; Z79.4 Long term (current) use of insulin; Z79.899 Other long term (current) drug therapy; Z85.51 Personal history of malignant neoplasm of bladder; Z86.19 Personal history of other infectious and parasitic diseases; Z87.448 Personal history of other diseases of urinary system
CPT/HCPCS: 36415; 71020; 71275; 80053; 82550; 82553; 83036; 83735; 83880; 84484; 85025; 85379; 85610; 85730; 93005; 94640; 94760; 96374; 96375; 96376; 99291

== ENCOUNTER → 2017-02-18 | Outpatient (CLI) | payer SELFPAY ==
[2017-02-18 14:40] LABS: Basophils # (A) 0.1 k/uL (0-0.2); Basophils % (A) 1 %; CH 28.8; CHCM 33.1; Eosinophils # (A) 0.2 k/uL (0-0.7); Eosinophils % (A) 2 %; HCT 42.3 % (39.0-53.0); HDW 3.08; HGB 13.9 gm/dL (13.0-17.5); Luc % (Auto) 4; Lymphocytes # (A) 1.5 k/uL (1.0-4.8); Lymphocytes % (A) 19 %; MCH 28.8 pg (25.0-35.0); MCHC 32.9 g/dL (31.0-37.0); MCV 87.4 fL (80.0-100.0); Mean Platelet Volume 6.6; Monocytes # (A) 0.5 k/uL (0-1.0); Monocytes % (A) 7 %; Neutrophils # (A) 5.3 k/uL (1.3-7.7); Neutrophils % (A) 67 %; RBC 4.84 m/uL (4.30-5.90); RDW 13.8 % (11.5-15.5); WBC 7.9 k/uL (3.8-10.6); WBC (Perox) 7.63
[2017-02-18 15:04] LABS: Calcium 9.6 mg/dL (8.4-10.2); Potassium 4.7 mmol/L (3.5-5.1)
== END | disposition home or self-care (01) ==
LOC: LABPAT 13:40
PROVIDERS: ATTEND Urology
DX: Z01.818 Encounter for other preprocedural examination (principal); C67.8 Malignant neoplasm of overlapping sites of bladder; E11.9 Type 2 diabetes mellitus without complications; R35.0 Frequency of micturition
CPT/HCPCS: 80048; 85025; 87086

== ENCOUNTER 2017-02-24 11:35 | Day surgery (SDC) | payer SELFPAY ==
[~2017-02-24 11:35] MED LIST: DEXAMETHASONE SOD PHOSPHATE 10 MG/ML 1 ML VIAL IV ONE; HYDROmorphone 1 MG/ML 1 ML SYRINGE IVP PRN; LIDOCAINE 1% 20 ML VIAL (10MG/ML) FOR IV START INTRADERMA PRN; MIDAZOLAM 2 MG/2 ML VIAL IV PRN; ONDANSETRON 4 MG/2 ML VIAL IVP ONE; SCOPOLAMINE 1.5MG/72HR PATCH TRANSDERM ONE; ceFAZolin 2 GM in SODIUM CHLORIDE 0.9% 100 ML IVPB ONE
[2017-02-24] MEDS: LACTATED RINGERS 1,000 ML IV SCH (12:57)
[2017-02-24 13:05] LABS: Glucose,Whole Blood 189 mg/dL (75-99)
[2017-02-24] MEDS ORDERED: MIDAZOLAM 2 MG/2 ML VIAL ONE (14:18)
[2017-02-24] MEDS ORDERED: NEOSTIGMINE 1 MG/ML 10 ML VIAL ONE (14:18)
[2017-02-24] MEDS ORDERED: SUCCINYLCHOLINE CHLORIDE 100 MG/5 ML SYR IV ONE (14:18)
[2017-02-24] MEDS ORDERED: LIDOCAINE 1% INJ 10MG/ML (20 ML MDV) ONE (14:18)
[2017-02-24] MEDS ORDERED: ROCURONIUM BROMIDE 10 MG/ML 10 ML VIAL IV ONE (14:18)
[2017-02-24] MEDS ORDERED: PROPOFOL 10 MG/ML 20 ML VIAL IV ONE (14:18)
[2017-02-24] MEDS ORDERED: GLYCOPYRROLATE 0.2 MG/ML 2 ML VIAL ONE (14:18)
[2017-02-24] MEDS ORDERED: fentaNYL (PF) 50 MCG/ML 2 ML AMP ONE (14:18)
--- NOTE | 2017-02-24 15:08 | P.OP ---
Date of Procedure: 02/24/17 Preoperative Diagnosis: Urothelial Carcinoma of the Bladder, Clinical Stage TaG3 Postoperative Diagnosis: Same Procedure(s) Performed: Cystoscopy, Transurethral Resection of Bladder Tumors (Small) Anesthesia: ADALBERTOA Surgeon: Yimi Baires Estimated Blood Loss (ml): 0 IV fluids (ml): 500 Pathology: other (tissue fragments) Condition: stable Disposition: PACU Indications for Procedure: He is a 71-year-old male who presented with gross hematuria. A renal ultrasound in June 2016 showed a possible small right renal calculus, but was otherwise unremarkable. Cystoscopy revealed multiple bladder tumors involving virtually the entire bladder. He underwent resection in August 2016, revealing high-grade, non-invasive urothelial carcinoma of the bladder. His hematuria has resolved, and bladder emptying is complete. He was advised to undergo re-resection, as the initial resection was incomplete. This was delayed for medical reasons, but he is now prepared to undergo repeat resection. Operative Findings: 3 small, papillary tumors or bladder dome. Description of Procedure: The patient was taken in the operating room and placed in the dorsal lithotomy position, with his legs supported in Kris stirrups. The external genitalia was prepped and draped sterilely. The 24-[place] Storz resectoscope sheath was introduced into the bladder. The bladder was inspected. The right ureteral orifice was of normal anatomic location and configuration, and clear urine effluxed from it. The left ureteral orifice was gaping, due to previous resection, and obviously refluxed. It was possible to visualize the intramural portion of the ureter, which appeared normal. The entire bladder was examined, revealing scarring on the left posterior lateral bladder wall. 3 small, papillary tumors were seen at the bladder dome. 2 were immediately adjacent to one another. These measured approximately 5-6 mm each in diameter. The prostate was visually occluded with a bilobar configuration; no urothelial lesions were seen within the prostatic urethra. Using the cutting loop, the tumors were resected down to the muscle. Excellent hemostasis was attained, and there was no evidence of bladder perforation. The resected tissue was saved and sent for pathologic examination. The bladder was emptied and the resectoscope removed. The patient tolerated the procedure well and was taken to the recovery room in stable condition.
[2017-02-24] MEDS ORDERED: LABETALOL 5 MG/ML VIAL MDV IV ONE (15:17)
[2017-02-24 15:40] LABS: Glucose,Whole Blood 276 mg/dL (75-99)
[2017-02-24 17:09] LABS: Glucose,Whole Blood 298 mg/dL (75-99)
[2017-02-24 18:40] VITALS: BMI 31.4
[2017-02-24] MEDS ORDERED: NITROGLYCERIN SL TABS 0.4 MG TAB SUBLINGUAL PRN (19:42)
[2017-02-24 20:36] LABS: Glucose,Whole Blood 243 mg/dL (75-99)
[2017-02-24] MEDS ORDERED: TAMSULOSIN 0.4 MG CAP.ER.24H PO SCH (21:00)
[2017-02-24] MEDS: IPRATROPIUM 0.5 MG/2.5 ML NEBU INHALATION SCH (21:18)
[2017-02-24] MEDS: SYMBICORT 160-4.5 MCG INHALER INHALATION SCH (21:18)
[2017-02-25] MEDS: INSULIN LISPRO (humaLOG) 300 UNIT/3 ML VIAL SQ SCH ×3 (00:56→12:12)
[2017-02-25 01:05] LABS: Glucose,Whole Blood 262 mg/dL (75-99)
[2017-02-25] MEDS ORDERED: BUMETANIDE 1 MG TAB PO SCH (02:00)
[2017-02-25 05:48] VITALS: TEMP 97.4
[2017-02-25] MEDS: LACTATED RINGERS 1,000 ML IV SCH (05:58)
[2017-02-25 06:21] LABS: Glucose,Whole Blood 309 mg/dL (75-99)
[2017-02-25] MEDS ORDERED: CARVEDILOL 6.25 MG TAB PO SCH (07:30)
--- NOTE | 2017-02-25 08:15 | P.PN ---
Progress Note - Text POD #1, s/p TUR-BT. The patient was admitted postop for bradycardia. His pulse is now 66. He is asymptomatic. He is voiding without difficulty. His urine is clear yellow in color. He is urologically stable for discharge. Disposition per Cardiology. It would be my preference that he be off Plavix for several days.
[2017-02-25 08:58] VITALS: RESP 18
[2017-02-25] MEDS ORDERED: CLOPIDOGREL 75 MG TAB PO SCH (09:00)
[2017-02-25 11:09] LABS: Calcium 9.2 mg/dL (8.4-10.2); Magnesium 1.9 mg/dL (1.6-2.3); Potassium 5.1 mmol/L (3.5-5.1)
[2017-02-25] MEDS ORDERED: MAGNESIUM SULFATE-D5W PMX 1 GM in DEXTROSE/WATER 1 100ML.BAG IVPB ONE (11:30)
[2017-02-25] MEDS: SYMBICORT 160-4.5 MCG INHALER INHALATION SCH (12:14)
[2017-02-25] MEDS: IPRATROPIUM 0.5 MG/2.5 ML NEBU INHALATION SCH ×2 (12:14→12:17)
[2017-02-25 12:15] LABS: Glucose,Whole Blood 328 mg/dL (75-99)
--- NOTE | 2017-02-25 12:18 | P.CRDCN ---
History of Present Illness Consult date: 02/25/17 Requesting physician: Yimi Baires Reason for Consult (text): Bradycardia Chief complaint: Hematuria History of present illness: This is a pleasant 71-year-old gentleman who follows regularly with Dr. Medina in the office. He has a known history of hypertension, hyperlipidemia, diabetes, coronary artery disease with prior bypass surgery, prior smoking history, implantation of dual-chamber AICD, history of CVA, history of bladder cancer, patient had been having hematuria and for this reason was admitted to the hospital where he underwent transurethral resection of bladder tumors by Dr. Baires. The postoperative period patient was noted to be bradycardic and for this reason a cardiology consultation was requested. Upon review of the EKG patient was noted to be in a paced rhythm with bigeminal PVCs. Device was interrogated this morning did show intermittent episodes of atrial tachycardia, single episode of nonsustained ventricular tachycardia as well as occasional PVCs. Patient's atrial thresholds were also adjusted this morning. Patient's rhythm this morning shows a paced rhythm, no PVCs noted, Blood pressure 120/70 with a heart rate in the 60s. Temperature is 97.4 he's 97 % on room air. Potassium 5.1, magnesium level I.9, BUN 46, creatinine 1.5. The patient was seen and examined this morning, he feels well overall, denies any dizziness, no lightheadedness. He's been up ambulating, and is quite eager to be discharged home today. Past Medical History Past Medical History: Cancer, Heart Failure, COPD, CVA/TIA, Diabetes Mellitus, GERD/Reflux, Hyperlipidemia, Hypertension, Myocardial Infarction ([place]), Prostate Disorder Additional Past Medical History / Comment(s): TIA- year ago, ulcer, enlarged prostate, bladder cancer Last Myocardial Infarction Date:: 2009 History of Any Multi-Drug Resistant Organisms: None Reported Past Surgical History: AICD, Coronary Bypass/CABG, Tonsillectomy Additional Past Surgical History / Comment(s): quadruple bypass Past Anesthesia/Blood Transfusion Reactions: Motion Sickness Type of Cardiac Device: AICD Device Placement Date:: 07/01/16 Past Psychological History: No Psychological Hx Reported Smoking Status: Former smoker Past Alcohol Use History: Occasional Additional Past Alcohol Use History / Comment(s): STARTED SMOKING AGE 16 (1960) , SMOKED 2PPD, QUIT 1990 Past Drug Use History: None Reported Additional Drug Use History / Comment(s): . - Past Family History Mother Family Medical History: No Reported History Father Family Medical History: Diabetes Mellitus Medications and Allergies Home Medications Medication Instructions Recorded Confirmed Type Carvedilol [Coreg] 6.25 mg PO BID 11/08/16 02/22/17 History Insulin NPH Human Isophane 30 unit SQ 1400 11/08/16 02/22/17 History [NovoLIN N] Tamsulosin HCl [Flomax] 0.4 mg PO HS 11/08/16 02/22/17 History Budesonide-Formot 160-4.5 Mcg 2 puff INHALATION BID 02/22/17 02/22/17 History [Symbicort 160-4.5 Mcg Inhaler] Bumetanide 1 mg PO 0200 02/22/17 02/22/17 History Insulin Regular, Human [NovoLIN R] 0 unit SQ 1400 02/22/17 02/22/17 History Ipratropium Nebulized [Atrovent 0.5 mg INHALATION BID 02/22/17 02/22/17 History Nebulized] Spironolactone [Aldactone] 25 mg PO 1400 02/22/17 02/22/17 History Allergies Allergy/AdvReac Type Severity Reaction Status Date / Time Iodinated Contrast Media - Allergy Unknown Verified 02/24/17 12:37 Oral and [Iodinated Contrast Media - IV Dye] Physical Exam Vitals: Vital Signs Temp Pulse Pulse Resp BP Pulse Ox 02/25/17 08:00 97.4 F L 67 18 119/70 97 02/25/17 04:00 97.4 F L 66 16 125/73 97 02/25/17 00:00 97.3 F L 66 16 116/74 95 02/24/17 21:32 70 02/24/17 21:18 68 02/24/17 20:00 97.1 F L 66 16 117/70 97 02/24/17 19:04 69 18 02/24/17 18:25 97 F L 69 18 119/59 96 02/24/17 17:23 65 18 125/55 94 L 02/24/17 17:02 70 18 124/68 92 L 02/24/17 16:50 71 91 L 02/24/17 16:47 36 L 18 131/80 91 L 02/24/17 16:15 76 16 133/60 100 02/24/17 16:00 76 16 134/60 100 02/24/17 15:45 86 16 130/60 100 02/24/17 15:30 67 16 139/59 98 02/24/17 15:22 96 14 125/63 98 02/24/17 15:17 97.6 F 110 H 12 183/122 98 02/24/17 12:35 97.4 F L 78 16 167/79 98 Intake and Output 02/24/17 02/25/17 02/25/17 22:59 06:59 14:59 Intake Total 660 240 Output Total 125 600 Balance 660 -125 -360 Intake: IV 300 Oral 360 240 Output: Urine 125 600 Other: # Voids 1 1 Weight 83 kg PHYSICAL EXAMINATION: HEENT: Head is atraumatic, normocephalic. Pupils equal, round. Neck is supple. There is no elevated jugular venous pressure. HEART EXAMINATION: Heart S1 and S2 systolic murmur is heard. CHEST EXAMINATION: Lungs are clear to auscultation and precussion. No chest wall tenderness is noted on palpation or with deep breathing. ABDOMEN: Soft, nontender. Bowel sounds are heard. No organomegaly noted. EXTREMITIES: 2+ peripheral pulses with no evidence of peripheral edema and no calf tenderness noted. NEUROLOGIC patient is awake, alert and oriented -3. . Results 02/25/17 10:41 Comprehensive Metabolic Panel 02/25/17 Range/Units 10:41 Sodium 137 (137-145) mmol/L Potassium 5.1 (3.5-5.1) mmol/L Chloride 102 (98-107) mmol/L Carbon Dioxide 28 (22-30) mmol/L BUN 46 H (9-20) mg/dL Creatinine 1.56 H (0.66-1.25) mg/dL Glucose 336 H (74-99) mg/dL Calcium 9.2 (8.4-10.2) mg/dL Current Medications Generic Name Dose Route Start Last Admin Trade Name Freq PRN Reason Stop Dose Admin Budesonide/Formoterol Fumarate 2 puff 02/24/17 20:00 02/24/17 21:18 Symbicort 160-4.5 Mcg Inhaler INHALATION 2 puff RT-BID BELLA Administration Bumetanide 1 mg 02/25/17 02:00 02/25/17 01:00 Bumex PO 1 mg 0200 BELLA Administration Carvedilol 6.25 mg 02/25/17 07:30 02/25/17 06:50 Coreg PO 6.25 mg AC-BID BELLA Administration Clopidogrel Bisulfate 75 mg 02/25/17 09:00 Plavix PO DAILY BELLA Lactated Ringer's 1,000 mls @ 20 mls/hr 02/24/17 05:57 02/25/17 05:58 Lactated Ringers IV Not Given .Q24H BELLA Magnesium Sulfate/Dextrose 1 100 mls @ 100 mls/hr 02/25/17 11:30 gm/ IV Solution IVPB 02/25/17 12:29 ONCE ONE Insulin Human Lispro 0 unit 02/24/17 23:09 02/25/17 06:50 Humalog SQ 5 unit ACHS BELLA Administration Protocol Ipratropium [place] 0.5 mg 02/24/17 20:00 02/24/17 21:18 Atrovent Nebulized INHALATION 0.5 mg RT-BID BELLA Administration Lidocaine HCl 0.1 ml 02/24/17 05:57 02/24/17 12:58 .Xylocaine 1% Inj (10mg/Ml) For Iv Start INTRADERMA 0.1 ml PER PROTOCOL PRN Administration IV Start Nitroglycerin 0.4 mg 02/24/17 19:42 Nitrostat SUBLINGUAL Q5M PRN Chest Pain Spironolactone 25 mg 02/25/17 14:00 Aldactone PO 1400 BELLA Tamsulosin HCl 0.4 mg 02/24/17 21:00 02/24/17 22:26 Flomax PO 0.4 mg HS BELLA Administration Intake and Output 02/24/17 02/25/17 02/25/17 22:59 06:59 14:59 Intake Total 660 240 Output Total 125 600 Balance 660 -125 -360 Intake: IV 300 Oral 360 240 Output: Urine 125 600 Other: # Voids 1 1 Weight 83 kg 02/25/17 10:41 EKG Interpretations (text) EKG shows a paced rhythm with bigeminal PVCs, repeat EKG shows a normal sinus rhythm with no ventricular ectopy. Assessment and Plan Plan: Assessment and plan #1 status post cystoscopy, transurethral resection of bladder tumors. #2 bradycardia with bigeminal. AICD was interrogated adjustments made to atrial threshold. Functioning appropriately. #3 known history of coronary artery disease with prior bypass surgery #4 ischemic cardio myopathy with prior AICD implantation # 5 hypertension #6 hyperlipidemia #7 diabetes #8 prior CVA #9 GERDS #10 prior smoking history Plan From cardiology standpoint, patient may be able to be discharged home. We will make him a follow-up appointment to see Dr. Medina in the office post discharge. DNP note has been reviewed, I agree with a documented findings and plan of care. Patient was seen and examined.
[2017-02-25 12:22] VITALS: BP 116/77
[2017-02-25 12:30] VITALS: PULSE 70
[2017-02-25] MEDS ORDERED: SPIRONOLACTONE 25 MG TAB PO SCH (14:00)
== END 2017-02-25 13:56 | disposition home or self-care (01) ==
LOC: OR 11:35 → 6SEL 15:17 → OR 02-25 13:56
PROVIDERS: ATTEND Urology
DX: C67.1 Malignant neoplasm of dome of bladder (principal); I11.0 Hypertensive heart disease with heart failure; I50.9 Heart failure, unspecified; E78.5 Hyperlipidemia, unspecified; I25.2 Old myocardial infarction; E11.9 Type 2 diabetes mellitus without complications; Z79.4 Long term (current) use of insulin; Z95.1 Presence of aortocoronary bypass graft; Z95.810 Presence of automatic (implantable) cardiac defibrillator; I42.9 Cardiomyopathy, unspecified; Z79.899 Other long term (current) drug therapy; Z79.02 Long term (current) use of antithrombotics/antiplatelets; Z91.041 Radiographic dye allergy status
CPT/HCPCS: 94640 ×3; 94760; 93005; 80048; 83735; 88307; 52234; J2250; J1100; J2710; J0690; J2405; J2001; J3010; J3475; J0330; J2704

== ENCOUNTER 2017-12-31 16:51 | Inpatient (IN) | payer OTHER ==
[2017-12-31] MEDS ORDERED: SODIUM CHLORIDE 0.9% 500 ML IV STA (17:03)
--- NOTE | 2017-12-31 17:03 | ED ---
General Adult HPI - General Stated complaint: Dizziness Time Seen by Provider: 12/31/17 16:53 Source: RN notes reviewed, old records reviewed - History of Present Illness Initial comments: This is a 72-year-old male to the ER for evaluation today. Patient presents here today for evaluation regards to dizziness. Severe dizziness. The symptoms started all he was in his car. Patient does have mild history of heart disease. Patient states he was in his car (grade dizzy the room was spinning around car was spinning around getting out of his car and he fell using a fall or. At that point patient called EMS do not want fall and hurt himself. Patient states the dizziness is still there now what appears to come and go. Currently he is without symptoms - Related Data Home Medications Medication Instructions Recorded Confirmed Insulin NPH Human Isophane 30 unit SQ 1400 11/08/16 12/31/17 [NovoLIN N] Tamsulosin HCl [Flomax] 0.4 mg PO DAILY 11/08/16 12/31/17 Insulin Regular, Human [NovoLIN R] See Protocol SQ TID 02/22/17 12/31/17 Bumetanide [BUMEX] 2 mg PO DAILY@1400 12/31/17 12/31/17 Bumetanide [BUMEX] 2 mg PO QAM 12/31/17 12/31/17 Carvedilol [Coreg] 12.5 mg PO BID 12/31/17 12/31/17 Fish Oil/Dha/Epa [Fish Oil 1,200 1 cap PO DAILY 12/31/17 12/31/17 mg Fish Oil] Multivitamins, Thera [Multivitamin 1 tab PO DAILY 12/31/17 12/31/17 (formulary)] Spironolactone [Aldactone] 50 mg PO DAILY 12/31/17 12/31/17 Previous Rx's Medication Instructions Recorded Clopidogrel [Plavix] 75 mg PO DAILY #30 tab 09/02/15 Nitroglycerin Sl Tabs [Nitrostat] 0.4 mg SUBLINGUAL Q5M PRN #0 tab 09/11/16 Allergies Allergy/AdvReac Type Severity Reaction Status Date / Time Iodinated Contrast- Oral and Allergy Unknown Verified 12/31/17 17:33 IV Dye [Iodinated Contrast Media - IV Dye] Review of Systems ROS Statement: Those systems with pertinent positive or pertinent negative responses have been documented in the HPI. ROS Other: All systems not noted in ROS Statement are negative. Past Medical History Past Medical History: Heart Failure, CVA/TIA, Diabetes Mellitus, GERD/Reflux, Hyperlipidemia, Hypertension, Myocardial Infarction ([place]) Additional Past Medical History / Comment(s): hematuria Last Myocardial Infarction Date:: 2009 History of Any Multi-Drug Resistant Organisms: None Reported Past Surgical History: Coronary Bypass/CABG, Pacemaker, Tonsillectomy Additional Past Surgical History / Comment(s): quadruple bypass Past Anesthesia/Blood Transfusion Reactions: No Reported Reaction Type of Cardiac Device: Permanent Pacemaker Device Placement Date:: 07/01/16 Additional Drug Use History / Comment(s): Patient states he drinks 1-2 beers/wk. - Past Family History Mother Family Medical History: No Reported History Father Family Medical History: Diabetes Mellitus General Exam General appearance: alert, in no apparent distress Head exam: Present: atraumatic, normocephalic, normal inspection Eye exam: Present: normal appearance, PERRL, EOMI, nystagmus. Absent: scleral icterus, conjunctival injection, periorbital swelling ENT exam: Present: normal exam, mucous membranes moist Neck exam: Present: normal inspection. Absent: tenderness, meningismus, lymphadenopathy Respiratory exam: Present: normal lung sounds bilaterally. Absent: respiratory distress, wheezes, rales, rhonchi, stridor Cardiovascular Exam: Present: regular rate, normal rhythm, normal heart sounds. Absent: systolic murmur, diastolic murmur, rubs, gallop, clicks GI/Abdominal exam: Present: soft, normal bowel sounds. Absent: distended, tenderness, guarding, rebound, rigid Extremities exam: Present: normal inspection, full ROM, normal capillary refill. Absent: tenderness, pedal edema, joint swelling, calf tenderness Back exam: Present: normal inspection Neurological exam: Present: alert, oriented X3, CN II-XII intact Psychiatric exam: Present: normal affect, normal mood Skin exam: Present: warm, dry, intact, normal color. Absent: rash Course Vital Signs 12/31/17 12/31/17 12/31/17 17:00 18:30 19:00 Temperature 96.7 F L Pulse Rate 60 60 60 Respiratory 18 18 16 Rate Blood Pressure 123/72 107/59 105/55 O2 Sat by Pulse 98 98 97 Oximetry 12/31/17 20:17 Temperature Pulse Rate 60 Respiratory 16 Rate Blood Pressure 102/51 O2 Sat by Pulse 97 Oximetry - Reevaluation(s) Reevaluation #1: 12/31/17 21:27 Patient with elevated troponin, no anticoagulation secondary to positive CVA EKG Findings - EKG Comments: EKG Findings:: EKG shows paced rhythm rate of 60, NJ 244, QRS 142, QTc 476 Medical Decision Making - Medical Decision Making 72 male the ER for evaluation. Patient was elevated troponin, no chest pain but dizziness, and STEMI with CVA. Stroke and computed tomography scan positive with symptoms including vertigo. Patient will be admitted for both neurology and cardiology evaluation. Continue monitoring and hemodynamic support - Lab Data Result diagrams: 12/31/17 17:25 12/31/17 17:25 Lab Results 12/31/17 12/31/17 12/31/17 Range/Units 17:25 17:25 17:25 WBC 11.6 H (3.8-10.6) k/uL RBC 5.45 (4.30-5.90) m/uL Hgb 15.5 (13.0-17.5) gm/dL Hct 45.4 (39.0-53.0) % MCV 83.3 (80.0-100.0) fL MCH 28.5 (25.0-35.0) pg MCHC 34.2 (31.0-37.0) g/dL RDW 13.4 (11.5-15.5) % Plt Count 231 (150-450) k/uL Neutrophils % 79 % Lymphocytes % 11 % Monocytes % 5 % Eosinophils % 1 % Basophils % 1 % Neutrophils # 9.2 H (1.3-7.7) k/uL Lymphocytes # 1.2 (1.0-4.8) k/uL Monocytes # 0.6 (0-1.0) k/uL Eosinophils # 0.1 (0-0.7) k/uL Basophils # 0.1 (0-0.2) k/uL Sodium 136 L (137-145) mmol/L Potassium 4.5 (3.5-5.1) mmol/L Chloride 98 (98-107) mmol/L Carbon Dioxide 30 (22-30) mmol/L Anion Gap 8 mmol/L BUN 61 H (9-20) mg/dL Creatinine 1.70 H (0.66-1.25) mg/dL Est GFR (CKD-EPI)AfAm 45 (>60 ml/min/1.73 sqM) Est GFR (CKD-EPI)NonAf 39 (>60 ml/min/1.73 sqM) Glucose 81 (74-99) mg/dL Plasma Lactic Acid Wayne (0.7-2.0) mmol/L Calcium 9.7 (8.4-10.2) mg/dL Phosphorus 3.8 (2.5-4.5) mg/dL Magnesium 2.2 (1.6-2.3) mg/dL Total Bilirubin 0.8 (0.2-1.3) mg/dL AST 39 (17-59) U/L ALT 34 (21-72) U/L Alkaline Phosphatase 125 (38-126) U/L Total Creatine Kinase 69 (55-170) U/L CK-MB (CK-2) 6.5 H* (0.0-2.4) ng/mL CK-MB (CK-2) Rel Index 9.4 Troponin I 0.789 H* (0.000-0.034) ng/mL Total Protein 7.0 (6.3-8.2) g/dL Albumin 3.6 (3.5-5.0) g/dL 12/31/17 Range/Units 17:25 WBC (3.8-10.6) k/uL RBC (4.30-5.90) m/uL Hgb (13.0-17.5) gm/dL Hct (39.0-53.0) % MCV (80.0-100.0) fL MCH (25.0-35.0) pg MCHC (31.0-37.0) g/dL RDW (11.5-15.5) % Plt Count (150-450) k/uL Neutrophils % % Lymphocytes % % Monocytes % % Eosinophils % % Basophils % % Neutrophils # (1.3-7.7) k/uL Lymphocytes # (1.0-4.8) k/uL Monocytes # (0-1.0) k/uL Eosinophils # (0-0.7) k/uL Basophils # (0-0.2) k/uL Sodium (137-145) mmol/L Potassium (3.5-5.1) mmol/L Chloride (98-107) mmol/L Carbon Dioxide (22-30) mmol/L Anion Gap mmol/L BUN (9-20) mg/dL Creatinine (0.66-1.25) mg/dL Est GFR (CKD-EPI)AfAm (>60 ml/min/1.73 sqM) Est GFR (CKD-EPI)NonAf (>60 ml/min/1.73 sqM) Glucose (74-99) mg/dL Plasma Lactic Acid Wayne 0.9 (0.7-2.0) mmol/L Calcium (8.4-10.2) mg/dL Phosphorus (2.5-4.5) mg/dL Magnesium (1.6-2.3) mg/dL Total Bilirubin (0.2-1.3) mg/dL AST (17-59) U/L ALT (21-72) U/L Alkaline Phosphatase (38-126) U/L Total Creatine Kinase (55-170) U/L CK-MB (CK-2) (0.0-2.4) ng/mL CK-MB (CK-2) Rel Index Troponin I (0.000-0.034) ng/mL Total Protein (6.3-8.2) g/dL Albumin (3.5-5.0) g/dL - Radiology Data Radiology results: report reviewed (CT brain likely CVA chest x-ray negative), image reviewed Disposition Clinical Impression: CVA (cerebral vascular accident), Cardiomyopathy, NSTEMI (non-ST elevated myocardial infarction), Cerebrovascular accident Disposition: ADMITTED IP TO THIS [facility] Condition: Fair
[2017-12-31] MEDS ORDERED: ONDANSETRON 4 MG/2 ML VIAL IVP STA (17:12)
[2017-12-31] MEDS ORDERED: diphenhydrAMINE 50 MG/ML 1 ML VIAL IVP STA ×2 (17:12→18:59)
[2017-12-31 17:42] LABS: Basophils # (A) 0.1 k/uL (0-0.2); Basophils % (A) 1 %; Eosinophils # (A) 0.1 k/uL (0-0.7); Eosinophils % (A) 1 %; HCT 45.4 % (39.0-53.0); HGB 15.5 gm/dL (13.0-17.5); Lymphocytes # (A) 1.2 k/uL (1.0-4.8); Lymphocytes % (A) 11 %; MCH 28.5 pg (25.0-35.0); MCHC 34.2 g/dL (31.0-37.0); MCV 83.3 fL (80.0-100.0); Mean Platelet Volume 6.5; Monocytes # (A) 0.6 k/uL (0-1.0); Monocytes % (A) 5 %; Neutrophils # (A) 9.2 k/uL (1.3-7.7); Neutrophils % (A) 79 %; Platelet Count 231 k/uL (150-450); RBC 5.45 m/uL (4.30-5.90); RDW 13.4 % (11.5-15.5); WBC 11.6 k/uL (3.8-10.6)
[2017-12-31 17:55] LABS: Albumin 3.6 g/dL (3.5-5.0); Calcium 9.7 mg/dL (8.4-10.2); Magnesium 2.2 mg/dL (1.6-2.3); Phosphorus 3.8 mg/dL (2.5-4.5); Total Bilirubin 0.8 mg/dL (0.2-1.3)
[2017-12-31 18:04] LABS: Potassium 4.5 mmol/L (3.5-5.1)
[2017-12-31 18:23] LABS: Creatine Kinase MB 6.5 ng/mL (0.0-2.4); Troponin I 0.789 ng/mL (0.000-0.034)
--- NOTE | 2017-12-31 18:57 | CT ---
EXAMINATION: CT brain wo con DATE AND TIME: 12/31/2017 6:14 PM ORDERING PROVIDER: Ari Contreras DO CLINICAL INDICATION: Pain TECHNIQUE: Standard departmental protocol. COMPARISON: 08/31/2015 CT DESCRIPTION: When compared to the prior study the mildly prominent bilateral CSF spaces over the conv exities appear similar, but new since the prior study is a 3 cm mean diameter zone of encephalomalaci a in the right occipital pole, consistent with remote infarction. On the current study there is no intracranial hemorrhage. There is no mass or mass effect. There is n o definite new attenuation defect. Remainder of the intra-axial and extra-axial compartment examinati on is unremarkable. The calvarium is intact. The paranasal sinuses, middle ear cavities, and mastoid sinus air cells are clear. The orbits are unremarkable. IMPRESSION: 1. NO ACUTE PROCESS. 2. Remote right occipital pole infarction. 3. Unchanged mildly prominent CSF spaces over the bilateral convexities, greater on the right.
[2017-12-31] MEDS ORDERED: RX INFO: IV CONTRAST WAS GIVEN 1 EACH MISC MISCELLANE PRN (18:59)
[2017-12-31] MEDS ORDERED: methylPREDNISolone SOD SUCCI 125 MG/2 ML VIAL IV STA (18:59)
[2017-12-31] MEDS: FAMOTIDINE 20 MG/2 ML VIAL IV STA ×2 (19:06→19:20)
[2017-12-31] MEDS ORDERED: NITROGLYCERIN SL TABS 0.4 MG TAB SUBLINGUAL PRN (19:29)
--- NOTE | 2017-12-31 21:04 | XR ---
EXAMINATION: XR chest 3V DATE AND TIME: 12/31/2017 8:54 PM ORDERING PROVIDER: Ari Contreras CLINICAL INDICATION: Pain dizziness today TECHNIQUE: 3 views COMPARISON: 09/28/2017 DESCRIPTION: Cardiac pacemaker sternal sutures mediastinal clips and EKG leads noted. Mildly enlarged cardiac silhouette, stable in appearance. The lungs appear clear and well expanded bilaterally. The pleural spaces are negative. No acute bony or soft tissue findings. IMPRESSION: NO ACUTE PROCESS.
[2017-12-31 21:36] LABS: Glucose,Whole Blood 64 mg/dL (75-99)
[2017-12-31] MEDS ORDERED: ASPIRIN 325 MG TAB PO STA (21:50)
--- NOTE | 2017-12-31 22:13 | P.HPIM ---
History of Present Illness H&P Date: 12/31/17 Chief Complaint: dizziness Patient is a 72-year-old male past medical history of systolic congestive heart failure with an ejection fraction 30-35%, prior myocardial infarction, coronary artery disease status post 4 vessel bypass, hypertension, diabetes, and dyslipidemia who presented to the hospital complains of intermittent dizziness. His initial vital signs are within normal limits. Initial laboratory analysis showed elevated troponin at 0.78. His creatinine was also slightly elevated at 1.7 with baseline being around 1.5. He underwent a head CT which showed no acute process. He underwent a chest x-ray which also showed no acute process. His EKG demonstrated a paced rhythm at a rate of 60. There is concern for non-STEMI and possible stroke. He's been admitted to the selective care unit for further monitoring. Patient seen and examined at bedside. He states that today he was at the [employer] and became dizzy. He was sitting in his car and felt that the car was turning sideways. He felt as if he was going to fall if he stood up but did not feel so he is going to pass out. It lasted only a few seconds. He then proceeded home. When he got to the driveway he again had this feeling but it was stronger. He also felt as though his left leg seems shorter than his right leg. He did not feel as though he would pass out. With his inability to ambulate they called EMS and was brought to the hospital. He denied any numbness, tingling, inability to speak, or weakness of any parts of his body. He did not feel as though he was having a stroke. Once he arrived to the ER he also noted that he felt the room was spinning and became nauseous. He states his blood sugar does drop sometimes but on arrival to the ER his glucose was 81. He denies any chest pain, shortness of breath, or palpitations. He tries to follow with doctors as much as he can but he does not have any health insurance and is working on this with a [employer]. He states that he saw Dr. Blanton's nurse practitioner approximately 4 weeks ago and his Lasix dose was increased secondary to severe swelling. He states since that time he has decreased his oral fluid intake due to increased urination. He also reports that he has been urinating approximately 1 L daily. He takes his weight every day. When he had fluid overload he weighed 203 pounds and today he weighed 172 pounds. He typically follows with Dr. Medina but has not seen him in quite some time due to lack of insurance. Review of Systems General: no fever/chills, no rigors, + weight loss, no unusual fatigue Eyes: no noticeable visual changes, no loss of vision ENT: no rhinorrhea, no congestion, no sore throat Cardiovascular: + dizziness, no chest pain, no palpitations, no preyncope/ syncope, no edema Pulmonary: no shortness of breath, no wheezing, no cough Abdominal: no abdominal pain, no constipation, no diarrhea, no vomiting, no nausea Genitourinary: no dysuria, no urinary frequency, no unusual discharge/odor Neuro: no unusual paresthesias, no unusual paresis/paralysis, no headache Dermatologic: no unusual rashes, no unusual lesions, no unusual changes in nails Hematologic: no hemoptysis, no hematuria, no melena/hematochezia Psychiatric: no changes in mood or behaviors, no changes in sleep pattern Past Medical History Past Medical History: Heart Failure, CVA/TIA, Diabetes Mellitus, GERD/Reflux, Hyperlipidemia, Hypertension, Myocardial Infarction ([place]) Additional Past Medical History / Comment(s): hematuria, systolic congestive heart failure with ejection fraction 30-35%, bladder cancer, chronic kidney disease stage III, TIA Last Myocardial Infarction Date:: 2009 History of Any Multi-Drug Resistant Organisms: None Reported Past Surgical History: Coronary Bypass/CABG, Pacemaker, Tonsillectomy Additional Past Surgical History / Comment(s): quadruple bypass Past Anesthesia/Blood Transfusion Reactions: No Reported Reaction Type of Cardiac Device: Permanent Pacemaker Device Placement Date:: 07/01/16 Additional Drug Use History / Comment(s): Patient states he drinks 1-2 beers/wk. Additional History: Lives with his significant other, does not use any other assistive devices. Have a glucometer at home and checks blood sugars daily - Past Family History Mother Family Medical History: No Reported History Father Family Medical History: Diabetes Mellitus Medications and Allergies Home Medications Medication Instructions Recorded Confirmed Type Clopidogrel [Plavix] 75 mg PO DAILY #30 tab 09/02/15 12/31/17 Rx Nitroglycerin Sl Tabs [Nitrostat] 0.4 mg SUBLINGUAL Q5M PRN #0 tab 09/11/16 Rx Insulin NPH Human Isophane 30 unit SQ 1400 11/08/16 12/31/17 History [NovoLIN N] Tamsulosin HCl [Flomax] 0.4 mg PO DAILY 11/08/16 12/31/17 History Insulin Regular, Human [NovoLIN R] See Protocol SQ TID 02/22/17 12/31/17 History Bumetanide [BUMEX] 2 mg PO DAILY@1400 12/31/17 12/31/17 History Bumetanide [BUMEX] 2 mg PO QAM 12/31/17 12/31/17 History Carvedilol [Coreg] 12.5 mg PO BID 12/31/17 12/31/17 History Fish Oil/Dha/Epa [Fish Oil 1,200 1 cap PO DAILY 12/31/17 12/31/17 History mg Fish Oil] Multivitamins, Thera [Multivitamin 1 tab PO DAILY 12/31/17 12/31/17 History (formulary)] Spironolactone [Aldactone] 50 mg PO DAILY 12/31/17 12/31/17 History Allergies Allergy/AdvReac Type Severity Reaction Status Date / Time Iodinated Contrast- Oral and Allergy Unknown Verified 12/31/17 17:33 IV Dye [Iodinated Contrast Media - IV Dye] Physical Exam Osteopathic Statement: *. No significant issues noted on an osteopathic structural exam other than those noted in the History and Physical/Consult. Vitals: Vital Signs Temp Pulse Resp BP Pulse Ox 12/31/17 20:17 60 16 102/51 97 12/31/17 19:00 60 16 105/55 97 12/31/17 18:30 60 18 107/59 98 12/31/17 17:00 96.7 F L 60 18 123/72 98 Intake and Output 12/31/17 12/31/17 12/31/17 06:59 14:59 22:59 Other: Weight 78.018 kg General: non toxic, no distress, appears at stated age, normal weight Derm: no unusual rashes/lesions no unusual ecchymoses, warm, dry Head: atraumatic, normocephalic, symmetric Eyes: EOMI, no lid lag, anicteric sclera, pupils equal round reactive to light ENT: Nose and ears atraumatic, no thrush, no pharyngeal erythema Neck: No thyromegaly, no cervical lymphadenopathy, trachea midline, supple Mouth: no lip lesion, mucus membranes moist Cardiovascular: S1S2 reg, no murmur, positive posterior tibial pulse bilateral, no edema, capillary refill less than 2 seconds Lungs: CTA bilateral, no rhonchi, no rales , no accessory muscle use Abdominal: soft, nontender to palpation, no guarding, no appreciable organomegaly, normal bowel sounds Ext: no gross muscle atrophy, muscle strength 5 out of 5 in all 4 extremities grossly, no contractures, Neuro: CN II-XI grossly intact, light touch intact all 4 extremities, finger to nose within normal limits, Psych: Alert, oriented, appropriate affect Results CBC & Chem 7: 12/31/17 17:25 12/31/17 17:25 Labs: Abnormal Lab Results - Last 24 Hours (Table) 12/31/17 12/31/17 12/31/17 Range/Units 17:25 17:25 17:25 WBC 11.6 H (3.8-10.6) k/uL Neutrophils # 9.2 H (1.3-7.7) k/uL Sodium 136 L (137-145) mmol/L BUN 61 H (9-20) mg/dL Creatinine 1.70 H (0.66-1.25) mg/dL POC Glucose (mg/dL) (75-99) mg/dL CK-MB (CK-2) 6.5 H* (0.0-2.4) ng/mL Troponin I 0.789 H* (0.000-0.034) ng/mL 12/31/17 Range/Units 21:30 WBC (3.8-10.6) k/uL Neutrophils # (1.3-7.7) k/uL Sodium (137-145) mmol/L BUN (9-20) mg/dL Creatinine (0.66-1.25) mg/dL POC Glucose (mg/dL) 64 L (75-99) mg/dL CK-MB (CK-2) (0.0-2.4) ng/mL Troponin I (0.000-0.034) ng/mL Comments: EKG is reviewed by myself revealed a paced rhythm at 60 Chest x-ray: report reviewed CT Scan - head: report reviewed Thrombosis Risk Factor Assmnt - DVT/VTE Prophylaxis DVT/VTE Prophylaxis: Pharmacologic Prophylaxis ordered - Choose All That Apply Any of the Below Risk Factors Present?: Yes Each Risk Factor Represents 2 Points: Age 61-74 years Thrombosis Risk Factor Assessment Total Risk Factor Score: 2 Thrombosis Risk Factor Assessment Level: Low Risk Assessment and Plan Assessment: Dizziness -Related to non-STEMI versus TIA versus arrhythmia vs hypoglycemia -Unable to get MRI secondary to permanent pacemaker -Repeat head CT in a.m., neuro checks, PT, OT consults -Aspirin -echo - carotid doppler Elevated troponin with hx of ASCAD -Aspirin -Cycle troponins -Cardiology consultation -Nothing by mouth after midnight -Beta azra and statin therapy -Check lipid profile in a.m. Hypertension, controlled -Continue home medications with Coreg, Bumex -Follow blood pressures SATURNINO on CKD 3 baseline Cr 1.4-1.5 - change bumex to once daily and hold aldactone - avoid IVF with hx of CHF - Avoid additional nephrotoxic agents - follow renal profile Compensated systolic congestive heart failure with ejection fraction 30-35% -decrease bumex to daily and hold aldactone - Not chronically on ACEI - Continue with coreg Surrogate decision-maker: Tisha Mistry CODE STATUS:Full DVT prophylaxis: Lovenox Discussed with: Patient, nursing Anticipated discharge: 24-[address]: home A total of 65 minutes was spent on the care of this complex patient more than 50 % of the time was spent in counseling and care coordination.
[2017-12-31] MEDS ORDERED: ATORVASTATIN 40 MG TAB PO SCH (22:15)
[2017-12-31 22:23] LABS: Glucose,Whole Blood 78 mg/dL (75-99)
[2017-12-31] MEDS ORDERED: ENOXAPARIN 80 MG/0.8 ML SYRINGE SQ SCH (22:30)
[2017-12-31 22:39] LABS: Glucose,Whole Blood 107 mg/dL (75-99)
[2017-12-31] MEDS: PANTOPRAZOLE 40 MG/10 ML VIAL IVP SCH (22:58)
--- NOTE | 2017-12-31 23:39 | US ---
EXAMINATION TYPE: US carotid duplex BILAT DATE OF EXAM: 12/31/2017 COMPARISON: 08/31/2015 CLINICAL HISTORY: Stenosis. EXAM MEASUREMENTS: RIGHT: Peak Systolic Velocity (PSV) cm/sec ----- Right CCA: 53.6 ----- Right ICA: 87.5 ----- Right ECA: 85.3 ICA/CCA ratio: 1.6 RIGHT: End Diastole cm/sec ----- Right CCA: 13.0 ----- Right ICA: 22.6 ----- Right ECA: 15.3 LEFT: Peak Systolic Velocity (PSV) cm/sec ----- Left CCA: 50.4 ----- Left ICA: 94.9 ----- Left ECA: 77.0 ICA/CCA ratio: 1.9 LEFT: End Diastole cm/sec ----- Left CCA: 16.1 ----- Left ICA: 28.9 ----- Left ECA: 7.7 VERTEBRALS ( direction of flow): Right Vertebral: unable to visualize flow Left Vertebral: Antegrade Rhythm: Arrhythmia Technically difficults study, pulsatile vessels. No significant velocity elevations. Moderate atherosclerotic changes. IMPRESSION: We could not demonstrate flow in the right vertebral artery which is presumably occluded . There is antegrade flow in the left vertebral artery. There is extensive plaque. There is no significant elevated velocity. The images and measurements sug gest 50% stenosis in both internal carotid arteries. Right vertebral artery abnormality is apparently new compared to the old exam. Criteria for Assigning % of Stenosis / Diameter reduction (Estimation based on the indirect measurements of the internal carotid artery velocities (ICA PSV). 1. Normal (no stenosis)=ICA PSV < 125 cm/s: ratio < 2.0: ICA EDV<40 cm/s. 2. Less than 50% stenosis=ICA PSV < 125 cm/s: ratio < 2.0: ICA EDV<40 cm/s. 3. 50 to 69% stenosis=ICA PSV of 125 to 230 cm/s: ration 2.0 ? 4.0: ICA EDV 40-100 cm/s. 4. Greater than 70% stenosis to near occlusion= ICA PSV > 230 cm/s: ratio > 4.0: ICA EDV > 100 cm/s. 5. Near occlusion= ICA PSV velocities may be low or undetectable: variable ratio and ICA EDV. 6. Total occlusion=unable to detect flow.
[2018-01-01 00:28] LABS: Creatine Kinase MB 10.9 ng/mL (0.0-2.4)
[2018-01-01 00:29] LABS: Troponin I 1.53 ng/mL (0.000-0.034)
[2018-01-01 02:21] LABS: Glucose,Whole Blood 233 mg/dL (75-99)
[2018-01-01 05:40] LABS: HCT 43.4 % (39.0-53.0); HGB 14.6 gm/dL (13.0-17.5); MCH 28.4 pg (25.0-35.0); MCHC 33.7 g/dL (31.0-37.0); MCV 84.4 fL (80.0-100.0); Platelet Count 242 k/uL (150-450); RBC 5.14 m/uL (4.30-5.90); RDW 13.6 % (11.5-15.5); WBC 8.5 k/uL (3.8-10.6)
[2018-01-01 05:53] LABS: Calcium 9.3 mg/dL (8.4-10.2); Potassium 4.3 mmol/L (3.5-5.1)
[2018-01-01 05:54] LABS: Glucose,Whole Blood 164 mg/dL (75-99)
[2018-01-01] MEDS: INSULIN ASPART 100 UNIT/ML 1 ML 10 ML VIAL SQ SCH ×4 (06:01→21:24)
[2018-01-01 06:13] LABS: Creatine Kinase MB 9.7 ng/mL (0.0-2.4); Troponin I 2.14 ng/mL (0.000-0.034)
[2018-01-01 06:22] LABS: Basophils # (M) 0.09 k/uL (0-0.2); Eosinophils # (M) 0.26 k/uL (0-0.7); Lymphocytes # (M) 1.02 k/uL (1.0-4.8); Monocytes # (M) 0.85 k/uL (0-1.0); Myelocytes # (M) 0.26 k/uL (0); Myelocytes % 3 %; Neutrophils # (M) 6.12 k/uL (1.3-7.7); Neutrophils % (M) 72 %; Nucleated Red Blood Cells 0 /100 WBC (0-0); Total Cells Counted 200
[2018-01-01] MEDS ORDERED: DEXTROSE 5% IN WATER 100 ML with AMIODARONE 150 MG IV ONE (08:54)
[2018-01-01] MEDS ORDERED: AMIODARONE 450 MG in DEXTROSE 5% IN WATER 250 ML IV SCH ×2 (09:00)
[2018-01-01] MEDS ORDERED: NON-FORMULARY DRUG (Fish Oil/Dha/Epa [Fish Oil 1,200 Mg Fish Oil] 1 CAP) PO SCH (09:00)
[2018-01-01] MEDS ORDERED: APIXABAN 5 MG TAB PO SCH (09:00)
[2018-01-01] MEDS: PANTOPRAZOLE 40 MG/10 ML VIAL IVP SCH (09:25)
[2018-01-01] MEDS: ASPIRIN 325 MG TAB PO SCH (09:25)
[2018-01-01] MEDS: CARVEDILOL 12.5 MG TAB PO SCH ×2 (09:25→19:57)
[2018-01-01] MEDS: BUMETANIDE 1 MG TAB PO SCH (09:25)
[2018-01-01] MEDS: CLOPIDOGREL 75 MG TAB PO SCH (09:25)
[2018-01-01] MEDS: TAMSULOSIN 0.4 MG CAP.ER.24H PO SCH (09:25)
--- NOTE | 2018-01-01 10:26 | CONS ---
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 Initial evaluation showed an elevated troponin at 0.78 and then subsequent troponins came back further elevated at 1.5 and 2.1. The patient has chronic renal insufficiency with a BUN of 55 and creatinine of 1.1. He had a chest x- ray on admission that was negative. A CT brain that was negative and at the time of my evaluation this morning, he appears comfortable at rest and is free of chest pain. His EKG shows paced rhythm with nonspecific ST-T wave changes. PAST MEDICAL HISTORY: Significant for CAD, status post CABG, ischemic cardiomyopathy, hypertension, dyslipidemia, congestive heart failure, hematuria. PAST SURGICAL HISTORY: Significant for defibrillator, tonsillectomy, bypass surgery. REVIEW OF SYSTEMS: CONSTITUTIONAL: Negative for fever, chills. EYES: Negative. ENT: Negative. CARDIOVASCULAR: Significant for dizziness. There is no history of chest pain. PULMONARY: Negative. ABDOMINAL: Negative. GENITOURINARY: Negative. NEUROLOGICAL: Negative. DERMATOLOGIC: Negative. ONCOLOGICAL: Negative. PSYCH: Negative. Rest of the system review is not relevant. MEDICATIONS: At home included Plavix, insulin, Flomax, Bumex, Coreg, fish oil, and Aldactone. PHYSICAL EXAM: Patient is comfortable at rest. Vital signs are stable. Chest exam reveals diminished air entry at the bases. Heart exam reveals first and second heart sounds and a systolic murmur at the left lower sternal border. Abdomen is soft. Exam of extremities reveals trace edema. Peripheral pulses are felt. LAB: Show a hemoglobin of 14.6, platelet count is 242. BUN is 55, creatinine is 1.6. Troponins are elevated. LDL cholesterol is 133. He had a CT brain on this admission that revealed an old right occipital infarct without any acute process. ASSESSMENT: 1. Acute non ST-segment elevation myocardial infarction. 2. Ischemic cardiomyopathy. 3. Dizziness. 4. Chronic renal insufficiency. 5. Chronic systolic heart failure. PLAN: I am going to obtain a 2D echo on him to document his LV function. He will need a heart catheterization to evaluate his bypass and quileute coronaries. This will be done hopefully on Wednesday. We will start him on IV heparin. I am going to consult Nephrology to optimize him for possible cath. KATH / WILBER: [id number] /
[2018-01-01 12:17] LABS: Glucose,Whole Blood 222 mg/dL (75-99)
[2018-01-01] MEDS: MULTIVITAMINS, THERA 1 EACH TAB PO SCH (12:37)
[2018-01-01] MEDS: ENOXAPARIN 80 MG/0.8 ML SYRINGE SQ SCH ×2 (12:37→19:57)
[2018-01-01 12:54] VITALS: BMI 27.3
[2018-01-01 13:03] LABS: Hemoglobin A1C 9.6 % (4.0-6.0)
--- NOTE | 2018-01-01 13:57 | ECHOF ---
Referral Reason:elevTrop MEASUREMENTS -------- HEIGHT: 170.2 cm WEIGHT: 80.7 kg BP: 112/63 RVIDd: 3.9 cm (< 3.3) IVSd: 1.6 cm (0.6 - 1.1) LVIDd: 6.3 cm (3.9 - 5.3) LVPWd: 1.2 cm (0.6 - 1.1) IVSs: 1.9 cm LVIDs: 5.6 cm LVPWs: 1.4 cm LA Diam: 4.2 cm (2.7 - 3.8) LAESV Index (A-L): 52.45 ml/m Ao Diam: 3.8 cm (2.0 - 3.7) AV Cusp: 1.2 cm (1.5 - 2.6) MV EXCURSION: 19.544 mm (> 18.000) MV EF SLOPE: 27 mm/s (70 - 150) EPSS: 1.8 cm AV maxP.39 mmHg AV meanP.26 mmHg RAP: 15.00 mmHg RVSP: 76.61 mmHg FINDINGS -------- AICD This was a technically difficult study with suboptimal apical views. The left ventricle is mildly dilated. There is moderate concentric left ventricular hypertrophy. Overall left ventricular systolic function is severely impaired with, an EF between 25 - 30 %. The right ventricle is mild to moderately enlarged. LA is severely dilated >40 ml/m2 The right atrium is normal in size. 3 ml of Lumason was utilized for enhancement of images. There is moderate aortic valve sclerosis. Trace to mild aortic regurgitation. There is mild aorti c stenosis present. Peak/mean gradient across the Aortic Valve is 19.39mmHg / 10.26mmHg. The mitral valve leaflets are mildly thickened. Mild mitral annular calcification present. Modera [id number] mitral regurgitation is present. Mild tricuspid regurgitation present. There is severe pulmonary hypertension. The right ventricul ar systolic pressure, as measured by Doppler, is 76.61mmHg. Moderate pulmonic regurgitation. The aortic root is dilated measuring 3.8cm. The inferior vena cava is dilated with poor inspiratory collapse which is consistent with estimated r ight atrial pressure of 15 mmHg. There is no pericardial effusion. CONCLUSIONS -------- 1. AICD 2. This was a technically difficult study with suboptimal apical views. 3. The left ventricle is mildly dilated. 4. There is moderate concentric left ventricular hypertrophy. 5. Overall left ventricular systolic function is severely impaired with, an EF between 25 - 30 %. 6. The right ventricle is mild to moderately enlarged. 7. LA is severely dilated >40 ml/m2 8. The right atrium is normal in size. 9. 3 ml of Lumason was utilized for enhancement of images. 10. There is moderate aortic valve sclerosis. 11. Trace to mild aortic regurgitation. 12. There is mild aortic stenosis present. 13. Peak/mean gradient across the Aortic Valve is 19.39mmHg / 10.26mmHg. 14. The mitral valve leaflets are mildly thickened. 15. Mild mitral annular calcification present. 16. [id number] mitral regurgitation is present. 17. Mild tricuspid regurgitation present. 18. There is severe pulmonary hypertension. 19. The right ventricular systolic pressure, as measured by Doppler, is 76.61mmHg. 20. Moderate pulmonic regurgitation. 21. The aortic root is dilated measuring 3.8cm. 22. The inferior vena cava is dilated with poor inspiratory collapse which is consistent with estimat ed right atrial pressure of 20 mmHg. 23. There is no pericardial effusion. BEAN PICKER: Karina Torres RDCS
--- NOTE | 2018-01-01 15:42 | P.PN ---
Subjective Progress Note Date: 01/01/18 Principal diagnosis: Dizziness Patient is feeling better today, he was able to ambulate out of his room into the hallway without dizziness. No weakness. No shortness of breath or chest pain. Objective - Vital Signs Vital signs: Vital Signs Temp 97.9 F 01/01/18 08:00 Pulse 86 01/01/18 12:00 Resp 16 01/01/18 12:00 BP 106/68 01/01/18 08:00 Pulse Ox 96 01/01/18 08:00 Intake & Output 12/31/17 01/01/18 01/01/18 18:59 06:59 18:59 Intake Total 10 Output Total 600 Balance -590 Weight 78.018 kg 81.1 kg 81.1 kg Intake: IV 10 0.9 10 Output: Urine 600 - Exam General: non toxic, no distress, appears at stated age, normal weight Derm: no unusual rashes/lesions no unusual ecchymoses, warm, dry Head: atraumatic, normocephalic, symmetric Eyes: EOMI, no lid lag, anicteric sclera, pupils equal round reactive to light ENT: Nose and ears atraumatic, no thrush, no pharyngeal erythema Neck: No thyromegaly, no cervical lymphadenopathy, trachea midline, supple Mouth: no lip lesion, mucus membranes moist Cardiovascular: S1S2 reg, no murmur, no edema Lungs: CTA bilateral, no rhonchi, no rales , no accessory muscle use Abdominal: soft, nontender to palpation, no guarding, no appreciable organomegaly, normal bowel sounds Ext: no gross muscle atrophy, muscle strength 5 out of 5 in all 4 extremities grossly, no contractures, Neuro: CN II-XI grossly intact, light touch intact all 4 extremities, finger to nose within normal limits, Psych: Alert, oriented, appropriate affect - Labs CBC & Chem 7: 01/01/18 05:19 01/01/18 05:19 Labs: Abnormal Lab Results - Last 24 Hours (Table) 12/31/17 12/31/17 12/31/17 Range/Units 17:25 17:25 17:25 WBC 11.6 H (3.8-10.6) k/uL Neutrophils # 9.2 H (1.3-7.7) k/uL Myelocytes # (Manual) (0) k/uL D-Dimer (<0.60) mg/L FEU Sodium 136 L (137-145) mmol/L BUN 61 H (9-20) mg/dL Creatinine 1.70 H (0.66-1.25) mg/dL Glucose (74-99) mg/dL POC Glucose (mg/dL) (75-99) mg/dL CK-MB (CK-2) 6.5 H* (0.0-2.4) ng/mL Troponin I 0.789 H* (0.000-0.034) ng/mL LDL Cholesterol, Calc (0-99) mg/dL HDL Cholesterol (40-60) mg/dL 12/31/17 12/31/17 12/31/17 Range/Units 21:30 22:37 23:29 WBC (3.8-10.6) k/uL Neutrophils # (1.3-7.7) k/uL Myelocytes # (Manual) (0) k/uL D-Dimer (<0.60) mg/L FEU Sodium (137-145) mmol/L BUN (9-20) mg/dL Creatinine (0.66-1.25) mg/dL Glucose (74-99) mg/dL POC Glucose (mg/dL) 64 L 107 H (75-99) mg/dL CK-MB (CK-2) 10.9 H* (0.0-2.4) ng/mL Troponin I 1.530 H* (0.000-0.034) ng/mL LDL Cholesterol, Calc (0-99) mg/dL HDL Cholesterol (40-60) mg/dL 01/01/18 01/01/18 01/01/18 Range/Units 02:11 05:19 05:19 WBC (3.8-10.6) k/uL Neutrophils # (1.3-7.7) k/uL Myelocytes # (Manual) (0) k/uL D-Dimer (<0.60) mg/L FEU Sodium (137-145) mmol/L BUN 55 H (9-20) mg/dL Creatinine 1.60 H (0.66-1.25) mg/dL Glucose 158 H (74-99) mg/dL POC Glucose (mg/dL) 233 H (75-99) mg/dL CK-MB (CK-2) 9.7 H* (0.0-2.4) ng/mL Troponin I 2.140 H* (0.000-0.034) ng/mL LDL Cholesterol, Calc 133 H (0-99) mg/dL HDL Cholesterol 22 L (40-60) mg/dL 01/01/18 01/01/18 01/01/18 Range/Units 05:19 05:20 05:48 WBC (3.8-10.6) k/uL Neutrophils # (1.3-7.7) k/uL Myelocytes # (Manual) 0.26 H (0) k/uL D-Dimer 5.32 H (<0.60) mg/L FEU Sodium (137-145) mmol/L BUN (9-20) mg/dL Creatinine (0.66-1.25) mg/dL Glucose (74-99) mg/dL POC Glucose (mg/dL) 164 H (75-99) mg/dL CK-MB (CK-2) (0.0-2.4) ng/mL Troponin I (0.000-0.034) ng/mL LDL Cholesterol, Calc (0-99) mg/dL HDL Cholesterol (40-60) mg/dL 01/01/18 Range/Units 12:14 WBC (3.8-10.6) k/uL Neutrophils # (1.3-7.7) k/uL Myelocytes # (Manual) (0) k/uL D-Dimer (<0.60) mg/L FEU Sodium (137-145) mmol/L BUN (9-20) mg/dL Creatinine (0.66-1.25) mg/dL Glucose (74-99) mg/dL POC Glucose (mg/dL) 222 H (75-99) mg/dL CK-MB (CK-2) (0.0-2.4) ng/mL Troponin I (0.000-0.034) ng/mL LDL Cholesterol, Calc (0-99) mg/dL HDL Cholesterol (40-60) mg/dL Assessment and Plan Plan: Dizziness -Could be secondary to acute myocardial infarction, hypoglycemia versus acute stroke, he does have history of stroke in the past. -Neurology consultation -Unable to get MRI secondary to permanent pacemaker -Repeat head CT today -PT, OT consults -Aspirin -echo and carotid doppler done, results reviewed. Acute non-ST elevation myocardial infarction with hx of ASCAD -Aspirin -Troponins trending up -Cardiology consultation--started on Lovenox 80 mg subcu twice a day, Wednesday. -Beta azra and statin therapy -Lipid profile consistent with high LDL at 133, started on Lipitor. Need to follow-up lipid profile in 3-6 months. -We'll encouraged to exercise upon discharge. Hypertension, controlled -Continue home medications with Coreg, Bumex -Follow blood pressures SATURNINO on CKD 3 baseline Cr 1.4-1.5 - Improving - Bumex changed to once daily and holding aldactone - avoid IVF with hx of CHF - Avoid additional nephrotoxic agents - follow renal profile in the a.m. Compensated systolic congestive heart failure with ejection fraction 30-35% -decrease bumex to daily and hold aldactone -ACEI contraindicated secondary to chronic renal failure. -Continue with coreg -Echocardiogram reviewed.
[2018-01-01 16:31] LABS: Glucose,Whole Blood 190 mg/dL (75-99)
--- NOTE | 2018-01-01 17:51 | CT ---
EXAMINATION TYPE: CT brain wo con DATE OF EXAM: 01/01/2018 COMPARISON: NONE HISTORY: Follow up scan, pain CT DLP: 1222 mGycm Automated exposure control for dose reduction was used. FINDINGS: There is no acute hemorrhage or major vessel territorial infarct. There is no mass, mass effect, or m idline shift. Previously described encephalomalacia in the right occipital pole is again noted. Scatt ered areas is unchanged from compared to the previous study. Prominent CSF spaces overlying the conve xities greater on the right than the left are unchanged. Ventricles and sulci are age-appropriate. Mi ld chronic white matter ischemic changes are noted. Calvarium and paranasal sinuses are unchanged. IMPRESSION: No change in appearance of the brain.
[2018-01-01] MEDS: ATORVASTATIN 40 MG TAB PO SCH (19:57)
[2018-01-01 20:29] LABS: Glucose,Whole Blood 245 mg/dL (75-99)
[2018-01-01] MEDS: MELATONIN 3 MG TABLET PO SCH (22:07)
[2018-01-02] MEDS ORDERED: RX INFO: IV CONTRAST WAS GIVEN 1 EACH MISC MISCELLANE PRN (01:24)
--- NOTE | 2018-01-02 01:47 | P.CNNES ---
History of Present Illness Consult date: 01/01/18 Requesting physician: Ari Contreras Reason for Consult: CVA Chief complaint: Altered mental status History of Present Illness: Neurology is consulting on a 72 year old male for dizziness. Patient has a complex medical history involving; CAD, CABG, HTN, hyperlipidemia, chronic renal insufficiency. Ct brain #1 on admission was negative for acute process. CT brain #2 on 01/01/18 was negative for acute process. Carotid doppler noted extensive plaque and probable occluded right vertebral artery. Patient was seen by Cardiology and a catheterization is planned. Patient states he has no ongoing residual symptoms. On contact, the patient is AOx4, resting in bed in no acute distress. Review of Systems All systems not noted in HPI are negative. Past Medical History Past Medical History: Heart Failure, CVA/TIA, Diabetes Mellitus, GERD/Reflux, Hyperlipidemia, Hypertension, Myocardial Infarction (MD) Additional Past Medical History / Comment(s): hematuria, systolic congestive heart failure with ejection fraction 30-35%, bladder cancer, chronic kidney disease stage III, TIA Last Myocardial Infarction Date:: 2009 History of Any Multi-Drug Resistant Organisms: None Reported Past Surgical History: Coronary Bypass/CABG, Pacemaker, Tonsillectomy Additional Past Surgical History / Comment(s): quadruple bypass Past Anesthesia/Blood Transfusion Reactions: No Reported Reaction Type of Cardiac Device: Permanent Pacemaker Device Placement Date:: 07/01/16 Additional Drug Use History / Comment(s): Patient states he drinks 1-2 beers/wk. - Past Family History Mother Family Medical History: No Reported History Father Family Medical History: Diabetes Mellitus Medications and Allergies Home Medications Medication Instructions Recorded Confirmed Type Clopidogrel [Plavix] 75 mg PO DAILY #30 tab 09/02/15 12/31/17 Rx Nitroglycerin Sl Tabs [Nitrostat] 0.4 mg SUBLINGUAL Q5M PRN #0 tab 09/11/16 Rx Insulin NPH Human Isophane 30 unit SQ 1400 11/08/16 12/31/17 History [NovoLIN N] Tamsulosin HCl [Flomax] 0.4 mg PO DAILY 11/08/16 12/31/17 History Insulin Regular, Human [NovoLIN R] See Protocol SQ TID 02/22/17 12/31/17 History Bumetanide [BUMEX] 2 mg PO DAILY@1400 12/31/17 12/31/17 History Bumetanide [BUMEX] 2 mg PO QAM 12/31/17 12/31/17 History Carvedilol [Coreg] 12.5 mg PO BID 12/31/17 12/31/17 History Fish Oil/Dha/Epa [Fish Oil 1,200 1 cap PO DAILY 12/31/17 12/31/17 History mg Fish Oil] Multivitamins, Thera [Multivitamin 1 tab PO DAILY 12/31/17 12/31/17 History (formulary)] Spironolactone [Aldactone] 50 mg PO DAILY 12/31/17 12/31/17 History Allergies Allergy/AdvReac Type Severity Reaction Status Date / Time Iodinated Contrast- Oral and Allergy Unknown Verified 12/31/17 17:33 IV Dye [Iodinated Contrast Media - IV Dye] Physical Examination - Vital Signs Vital Signs: Vital Signs Temp Pulse Resp BP Pulse Ox 01/01/18 23:19 97.9 F 60 16 114/70 95 01/01/18 20:00 97.5 F L 57 L 18 119/64 97 01/01/18 16:00 96.8 F L 58 L 16 109/62 96 01/01/18 12:00 86 16 01/01/18 08:00 97.9 F 86 16 106/68 96 01/01/18 04:00 97.6 F 65 16 112/63 98 Intake and Output 01/01/18 01/01/18 01/02/18 14:59 22:59 06:59 Intake Total 360 20 Output Total 200 Balance 360 -180 Intake: IV 20 0.9 10 Invasive Line 2 10 Oral 360 Output: Urine 200 Other: # Voids 1 Weight 81.1 kg General appearance: Alert & oriented x4, no apparent distress. Head: Atraumatic, normocephalic, normal inspection Eyes: Well appearance, PERRLA, EOMI. Absent scleral icterus, conjunctival injection, nystagmus, periorbital swelling. Ear, nose and throat: Normal exam, mucous membranes moist Neck: Normal inspection, absent tenderness, lymphadenopathy. Respiratory: No increased work of breathing Cardiovascular: Regular rate, rhythm GI/abdominal: Normal bowel sounds, nondistended, no tenderness, no guarding, no rebound, no rigidity. Extremities: All range of motion, normal capillary refill, no tenderness, pedal edema joint swelling, calf tenderness. Neurological: cranial nerves II through XII intact no lateralizing weakness no seizure activity noted on physical exam no pronator drift and no nystagmus. extremity strength is full in all 4 extremities Sensation: normal Psychological: Mood and affect appropriate for setting. Results - Laboratory Findings CBC and BMP: 01/01/18 05:19 01/01/18 05:19 Abnormal Lab Findings: Abnormal Labs 12/31/17 12/31/17 12/31/17 17:25 17:25 17:25 WBC 11.6 H Neutrophils # 9.2 H Myelocytes # (Manual) D-Dimer Sodium 136 L BUN 61 H Creatinine 1.70 H Glucose POC Glucose (mg/dL) CK-MB (CK-2) 6.5 H* Troponin I 0.789 H* LDL Cholesterol, Calc HDL Cholesterol 12/31/17 12/31/17 12/31/17 21:30 22:37 23:29 WBC Neutrophils # Myelocytes # (Manual) D-Dimer Sodium BUN Creatinine Glucose POC Glucose (mg/dL) 64 L 107 H CK-MB (CK-2) 10.9 H* Troponin I 1.530 H* LDL Cholesterol, Calc HDL Cholesterol 01/01/18 01/01/18 01/01/18 02:11 05:19 05:19 WBC Neutrophils # Myelocytes # (Manual) D-Dimer Sodium BUN 55 H Creatinine 1.60 H Glucose 158 H POC Glucose (mg/dL) 233 H CK-MB (CK-2) 9.7 H* Troponin I 2.140 H* LDL Cholesterol, Calc 133 H HDL Cholesterol 22 L 01/01/18 01/01/18 01/01/18 05:19 05:20 05:48 WBC Neutrophils # Myelocytes # (Manual) 0.26 H D-Dimer 5.32 H Sodium BUN Creatinine Glucose POC Glucose (mg/dL) 164 H CK-MB (CK-2) Troponin I LDL Cholesterol, Calc HDL Cholesterol 01/01/18 01/01/18 01/01/18 12:14 16:08 20:27 WBC Neutrophils # Myelocytes # (Manual) D-Dimer Sodium BUN Creatinine Glucose POC Glucose (mg/dL) 222 H 190 H 245 H CK-MB (CK-2) Troponin I LDL Cholesterol, Calc HDL Cholesterol Assessment and Plan (1) Vertebral artery stenosis Current Visit: Yes Status: Acute Code(s): I65.09 - OCCLUSION AND STENOSIS OF UNSPECIFIED VERTEBRAL ARTERY SNOMED Code(s): 13194619 (2) CVA (cerebral vascular accident) Current Visit: Yes Status: Acute Code(s): I63.9 - CEREBRAL INFARCTION, UNSPECIFIED SNOMED Code(s): 668586854 (3) HTN (hypertension) Current Visit: No Status: Acute Code(s): I10 - ESSENTIAL (PRIMARY) HYPERTENSION SNOMED Code(s): 35660542 (4) Hx of CABG Current Visit: No Status: Acute Code(s): Z95.1 - PRESENCE OF AORTOCORONARY BYPASS GRAFT SNOMED Code(s): 595142223 (5) Hyperlipemia Current Visit: No Status: Acute Code(s): E78.5 - HYPERLIPIDEMIA, UNSPECIFIED SNOMED Code(s): 80212226 Plan: 1. Vertebral artery stenosis-right 2. CVA 3. hypertension 4. hyperlipidemia Patient has extensive artery disease with noted plaque. Patient appears to have an occluded right vertebral artery as well. Patient has had resolution to his symptoms at presentation but given the patient's extensive vascular disease, further workup is needed. Workup to include: EEG CT angiogram head and neck Treatment: Continue 325mg aspirin Change to 81 mg aspirin if discharged Continue plavix at existing dose and frequency Continue Lipitor 40 mg po at bedtime Neurology will continue to follow and provide updates as needed or warranted. slit-lamp E stim in
[2018-01-02 05:59] LABS: Glucose,Whole Blood 129 mg/dL (75-99)
[2018-01-02] MEDS ORDERED: methylPREDNISolone SOD SUCCI 125 MG/2 ML VIAL IV ONE (06:00)
[2018-01-02] MEDS ORDERED: diphenhydrAMINE 50 MG/ML 1 ML VIAL IVP ONE (06:00)
[2018-01-02] MEDS: INSULIN ASPART 100 UNIT/ML 1 ML 10 ML VIAL SQ SCH ×4 (06:04→21:56)
[2018-01-02] MEDS: PANTOPRAZOLE 40 MG TABLET PO SCH (06:19)
[2018-01-02 06:41] LABS: Calcium 9.2 mg/dL (8.4-10.2); Potassium 4.6 mmol/L (3.5-5.1)
[2018-01-02 06:56] LABS: HCT 42.4 % (39.0-53.0); HGB 14.4 gm/dL (13.0-17.5); MCH 28.4 pg (25.0-35.0); MCHC 33.9 g/dL (31.0-37.0); MCV 83.8 fL (80.0-100.0); Platelet Count 239 k/uL (150-450); RBC 5.07 m/uL (4.30-5.90); RDW 13.6 % (11.5-15.5); WBC 8.4 k/uL (3.8-10.6)
[2018-01-02 07:26] LABS: Eosinophils # (M) 0.25 k/uL (0-0.7); Lymphocytes # (M) 1.51 k/uL (1.0-4.8); Monocytes # (M) 0.76 k/uL (0-1.0); Neutrophils # (M) 5.88 k/uL (1.3-7.7); Neutrophils % (M) 70 %; Nucleated Red Blood Cells 0 /100 WBC (0-0); Total Cells Counted 100
--- NOTE | 2018-01-02 08:59 | P.PN ---
Subjective Progress Note Date: 01/02/18 Principal diagnosis: Dizziness Feeling better, he told me today that he has severe ALLERGY to contrast and despite being premedicated last time he was told that her reaction. He felt that all of his body was on fire when he received the contrast last time with premedications. Objective - Vital Signs Vital signs: Vital Signs Temp 98.1 F 01/02/18 04:00 Pulse 85 01/02/18 04:00 Resp 16 01/02/18 04:00 BP 109/62 01/02/18 04:00 Pulse Ox 100 01/02/18 04:00 Intake & Output 01/01/18 01/02/18 01/02/18 18:59 06:59 18:59 Intake Total 360 30 Output Total 200 650 Balance 160 -620 Weight 81.1 kg 82.1 kg Intake: IV 30 0.9 20 Invasive Line 2 10 Oral 360 Output: Urine 200 650 Other: # Voids 1 - Exam General: non toxic, no distress, appears at stated age, normal weight Derm: no unusual rashes/lesions no unusual ecchymoses, warm, dry Head: atraumatic, normocephalic, symmetric Eyes: EOMI, no lid lag, anicteric sclera, pupils equal round reactive to light ENT: Nose and ears atraumatic, no thrush, no pharyngeal erythema Neck: No thyromegaly, no cervical lymphadenopathy, trachea midline, supple Mouth: no lip lesion, mucus membranes moist Cardiovascular: S1S2 reg, no murmur, no edema Lungs: CTA bilateral, no rhonchi, no rales , no accessory muscle use Abdominal: soft, nontender to palpation, no guarding, no appreciable organomegaly, normal bowel sounds Ext: no gross muscle atrophy, muscle strength 5 out of 5 in all 4 extremities grossly, no contractures, Neuro: CN II-XI grossly intact, light touch intact all 4 extremities, finger to nose within normal limits, Psych: Alert, oriented, appropriate affect - Labs CBC & Chem 7: 01/02/18 06:04 01/02/18 06:04 Labs: Abnormal Lab Results - Last 24 Hours (Table) 01/01/18 01/01/18 01/01/18 Range/Units 05:20 12:14 16:08 D-Dimer 5.32 H (<0.60) mg/L FEU BUN (9-20) mg/dL Creatinine (0.66-1.25) mg/dL Glucose (74-99) mg/dL POC Glucose (mg/dL) 222 H 190 H (75-99) mg/dL 01/01/18 01/02/18 01/02/18 Range/Units 20:27 05:53 06:04 D-Dimer (<0.60) mg/L FEU BUN 50 H (9-20) mg/dL Creatinine 1.75 H (0.66-1.25) mg/dL Glucose 141 H (74-99) mg/dL POC Glucose (mg/dL) 245 H 129 H (75-99) mg/dL Assessment and Plan Plan: Dizziness -Could be secondary to acute myocardial infarction, hypoglycemia versus acute stroke, he does have history of stroke in the past. -Neurology consultation reviewed--recommend CT angio brain and neck, & EEG. Will d/w neuro patient's contrast allergy -Unable to get MRI secondary to permanent pacemaker -Repeat head CT ----unchanged -PT, OT consults -Aspirin -echo and carotid doppler done, results reviewed. Acute non-ST elevation myocardial infarction with hx of ASCAD -Aspirin -Troponins trending up -D/W Cardiology --will premedicate for the heart cath and see how he does in am. -On Lovenox 80 mg subcu twice a day, Wednesday. -Beta azra and statin therapy -Lipid profile consistent with high LDL at 133, started on Lipitor. Need to follow-up lipid profile in 3-6 months. -We'll encouraged to exercise upon discharge. Hypertension, controlled -Continue home medications with Coreg, Bumex -Follow blood pressures SATURNINO on CKD 3 baseline Cr 1.4-1.5 - Improving - Bumex changed to once daily and holding aldactone - avoid IVF with hx of CHF - Avoid additional nephrotoxic agents - follow renal profile in the a.m. Compensated systolic congestive heart failure with ejection fraction 30-35% -decrease bumex to daily and hold aldactone -ACEI contraindicated secondary to chronic renal failure. -Continue with coreg -Echocardiogram reviewed.
[2018-01-02] MEDS: BUMETANIDE 1 MG TAB PO SCH (10:26)
[2018-01-02] MEDS: ASPIRIN 325 MG TAB PO SCH (10:26)
[2018-01-02] MEDS: CARVEDILOL 12.5 MG TAB PO SCH ×2 (10:27→21:56)
[2018-01-02] MEDS: CLOPIDOGREL 75 MG TAB PO SCH (10:27)
[2018-01-02] MEDS: ENOXAPARIN 80 MG/0.8 ML SYRINGE SQ SCH ×2 (10:27→21:56)
[2018-01-02] MEDS: TAMSULOSIN 0.4 MG CAP.ER.24H PO SCH (10:27)
[2018-01-02] MEDS: MULTIVITAMINS, THERA 1 EACH TAB PO SCH (10:28)
[2018-01-02 12:06] LABS: Glucose,Whole Blood 254 mg/dL (75-99)
--- NOTE | 2018-01-02 14:11 | P.PN ---
Subjective Progress Note Date: 01/02/18 Mr. Tapia is seen and examined in follow-up. Echocardiogram performed yesterday reveals moderate concentric left in her jugular hypertrophy, severely impaired left ventricular systolic function with ejection fraction 25-30%, mild to moderately enlarged right ventricle, severely dilated left atrium, moderate aortic valve sclerosis, mild aortic regurgitation, mild aortic stenosis peak/ mean gradient 19.39/10.26 mmHg, moderate to severe MR, mild TR and severe pulmonary hypertension with an RVSP of 76.61 mmHg. Aortic root is dilated measuring 3.8 cm. Carotid duplex reveals extensive plaque suggesting 50% stenosis in both internal carotid arteries, no demonstrated flow in the right vertebral artery which is presumably occluded. CT angios of the neck has been ordered per neurology. He denies any symptoms of chest pain, shortness of breath, dizziness, palpitations, nausea, vomiting or diaphoresis. Telemetry tracings have been unremarkable. Laboratory data reviewed, hemoglobin 14.4, platelets 239, potassium 4.6, BUN 50, creatinine 1.75. Blood pressure 119/74 heart rate 64 afebrile maintaining oxygen saturation on room air. Objective - Vital Signs Vital signs: Vital Signs Temp 97.5 F L 01/02/18 09:30 Pulse 68 01/02/18 12:21 Resp 14 01/02/18 12:21 BP 120/69 01/02/18 12:21 Pulse Ox 95 01/02/18 12:21 Intake & Output 01/01/18 01/02/18 01/02/18 18:59 06:59 18:59 Intake Total 360 30 480 Output Total 200 650 500 Balance 160 -620 -20 Weight 81.1 kg 82.1 kg Intake: IV 30 0.9 20 Invasive Line 2 10 Oral 360 480 Output: Urine 200 650 500 Other: # Voids 1 - Exam GENERAL: Well-appearing, well-nourished and in no acute distress. NECK: Supple without JVD or thyromegaly. LUNGS: Breath sounds clear to auscultation bilaterally. Respiration equal and unlabored. No wheezes, rales or rhonchi. Diminished bilaterally HEART: Regular rate and rhythm with murmur systolic ejection, no rubs or gallops. S1 and S2 heard. EXTREMITIES: Normal range of motion, no edema. No clubbing or cyanosis. Peripheral pulses intact and strong. - Labs CBC & Chem 7: 01/02/18 06:04 01/02/18 06:04 Labs: Abnormal Lab Results - Last 24 Hours (Table) 01/01/18 01/01/18 01/02/18 Range/Units 16:08 20:27 05:53 BUN (9-20) mg/dL Creatinine (0.66-1.25) mg/dL Glucose (74-99) mg/dL POC Glucose (mg/dL) 190 H 245 H 129 H (75-99) mg/dL 01/02/18 01/02/18 Range/Units 06:04 11:32 BUN 50 H (9-20) mg/dL Creatinine 1.75 H (0.66-1.25) mg/dL Glucose 141 H (74-99) mg/dL POC Glucose (mg/dL) 254 H (75-99) mg/dL Assessment and Plan Assessment: ASSESSMENT 1. Acute non-ST elevated myocardial infarction 2. Ischemic cardiomyopathy 3. Chronic renal insufficiency 4. Chronic systolic heart failure, currently euvolemic 5. Dizziness PLAN Currently neurology is actively working him up for possible CVA with evidence of carotid artery stenosis and occluded right vertebral artery. CT angios of the neck is ordered for today. Considering his history of chronic renal insufficiency we will hold off on cardiac catheterization at this time and recommend maximum medical therapy. Add Imdur 30 mg daily. Further recommendations to follow. Follow renal function and electrolytes closely. Nurse Practitioner note has been reviewed, I agree with a documented findings and plan of care. Patient was seen and examined.
[2018-01-02 16:58] LABS: Glucose,Whole Blood 245 mg/dL (75-99)
--- NOTE | 2018-01-02 17:47 | P.PN ---
Subjective Progress Note Date: 01/02/18 Principal diagnosis: CVA- ALTERED MENTAL STATUS Neurology is following on a 72 year old male with a history of dizziness. Patient has a complex medical history including CAD, CABG, HTN, hyperlipidemia and chronic renal failure. Ct brain and repeat Ct Brain were negative for any acute process. However carotid doppler noted extensive plaque and probable occluded right vertebral artery . Patient was seen by Cardiology and a catherization is scheduled. Given the characterization by radiology of "probable " with regard to the vertebral artery, the patient was recommended to have a CT angiogram. The patient agreed on 01/01/18. Apparently today, the patient is declining this imaging. EEG is still pending. Patient denies any new symptoms. The presenting symptoms have resolved. Patient is AOx4, resting in bed in no acute distress. Objective - Vital Signs Vital signs: Vital Signs Temp 97.5 F L 01/02/18 09:30 Pulse 68 01/02/18 12:21 Resp 14 01/02/18 12:21 BP 120/69 01/02/18 12:21 Pulse Ox 95 01/02/18 12:21 Intake & Output 01/01/18 01/02/18 01/02/18 18:59 06:59 18:59 Intake Total 360 30 720 Output Total 200 650 500 Balance 160 -620 220 Weight 81.1 kg 82.1 kg Intake: IV 30 0.9 20 Invasive Line 2 10 Oral 360 720 Output: Urine 200 650 500 Other: # Voids 1 - Exam General appearance: Alert & oriented x4, no apparent distress. Head: Atraumatic, normocephalic, normal inspection Eyes: Well appearance, PERRLA, EOMI. Absent scleral icterus, conjunctival injection, nystagmus, periorbital swelling. Ear, nose and throat: Normal exam, mucous membranes moist Neck: Normal inspection, absent tenderness, lymphadenopathy. Respiratory: No increased work of breathing Cardiovascular: Regular rate, rhythm GI/abdominal: Normal bowel sounds, nondistended, no tenderness, no guarding, no rebound, no rigidity. Extremities: All range of motion, normal capillary refill, no tenderness, pedal edema joint swelling, calf tenderness. Neurological: cranial nerves II through XII intact no lateralizing weakness no seizure activity noted on physical exam no pronator drift and no nystagmus. upper extremities equal, full, symmetrical Sensation: normal 4 Psychological: Mood and affect appropriate for setting. - Labs CBC & Chem 7: 01/02/18 06:04 01/02/18 06:04 Labs: Abnormal Lab Results - Last 24 Hours (Table) 01/01/18 01/02/18 01/02/18 Range/Units 20:27 05:53 06:04 BUN 50 H (9-20) mg/dL Creatinine 1.75 H (0.66-1.25) mg/dL Glucose 141 H (74-99) mg/dL POC Glucose (mg/dL) 245 H 129 H (75-99) mg/dL 01/02/18 01/02/18 Range/Units 11:32 16:36 BUN (9-20) mg/dL Creatinine (0.66-1.25) mg/dL Glucose (74-99) mg/dL POC Glucose (mg/dL) 254 H 245 H (75-99) mg/dL Assessment and Plan (1) Vertebral artery stenosis Current Visit: Yes Status: Acute Code(s): I65.09 - OCCLUSION AND STENOSIS OF UNSPECIFIED VERTEBRAL ARTERY SNOMED Code(s): 59162849 (2) CVA (cerebral vascular accident) Current Visit: Yes Status: Acute Code(s): I63.9 - CEREBRAL INFARCTION, UNSPECIFIED SNOMED Code(s): 799561326 (3) HTN (hypertension) Current Visit: No Status: Acute Code(s): I10 - ESSENTIAL (PRIMARY) HYPERTENSION SNOMED Code(s): 55056647 (4) Hx of CABG Current Visit: No Status: Acute Code(s): Z95.1 - PRESENCE OF AORTOCORONARY BYPASS GRAFT SNOMED Code(s): 638961791 (5) Hyperlipemia Current Visit: No Status: Acute Code(s): E78.5 - HYPERLIPIDEMIA, UNSPECIFIED SNOMED Code(s): 22059077 Plan: 1. Vertebral artery stenosis-right 2. CVA 3. hypertension 4. hyperlipidemia Patient has extensive artery disease with noted plaque. Patient appears to have an occluded right vertebral artery as well. Patient has had resolution to his symptoms at presentation but given the patient's extensive vascular disease, further workup is needed. Workup to include: EEG- pending CT angiogram head and neck- declined by patient against medical advice. Risks, benefits and alternatives were discussed with the patient. Patient originally agreed to proceed but appears to have canceled the study after provider completed the encounter today. Treatment: Continue 325mg aspirin Change to 81 mg aspirin if discharged Continue plavix at existing dose and frequency Continue Lipitor 40 mg po at bedtime Neurology will follow on an "as needed" basis. If patient's EEG is unremarkable , the patient can be cleared form a neuological standpoint for discharge. I have discussed the plan of care with the physician prior to implementation and he agrees with the plan as implemented.
[2018-01-02] MEDS: ISOSORBIDE MONONITRATE ER 30 MG TAB.ER.24H PO SCH (18:05)
[2018-01-02 21:37] LABS: Glucose,Whole Blood 270 mg/dL (75-99)
[2018-01-02] MEDS: ATORVASTATIN 40 MG TAB PO SCH (21:56)
[2018-01-02] MEDS: MELATONIN 3 MG TABLET PO SCH (21:56)
[2018-01-03 01:32] VITALS: RESP 16
[2018-01-03 03:18] LABS: Glucose,Whole Blood 195 mg/dL (75-99)
[2018-01-03 06:17] LABS: Calcium 9.2 mg/dL (8.4-10.2); Potassium 4.7 mmol/L (3.5-5.1)
[2018-01-03 06:48] LABS: Glucose,Whole Blood 196 mg/dL (75-99)
[2018-01-03] MEDS: INSULIN ASPART 100 UNIT/ML 1 ML 10 ML VIAL SQ SCH ×3 (07:00→17:41)
[2018-01-03] MEDS: PANTOPRAZOLE 40 MG TABLET PO SCH (07:00)
[2018-01-03 08:41] LABS: Glucose,Whole Blood 194 mg/dL (75-99)
[2018-01-03] MEDS: BUMETANIDE 1 MG TAB PO SCH (09:16)
[2018-01-03] MEDS: CLOPIDOGREL 75 MG TAB PO SCH (09:16)
[2018-01-03] MEDS: CARVEDILOL 12.5 MG TAB PO SCH (09:16)
[2018-01-03] MEDS: ASPIRIN 325 MG TAB PO SCH (09:16)
[2018-01-03] MEDS: MULTIVITAMINS, THERA 1 EACH TAB PO SCH (09:17)
[2018-01-03] MEDS: ENOXAPARIN 80 MG/0.8 ML SYRINGE SQ SCH (09:17)
[2018-01-03] MEDS: ISOSORBIDE MONONITRATE ER 30 MG TAB.ER.24H PO SCH (09:17)
[2018-01-03] MEDS: TAMSULOSIN 0.4 MG CAP.ER.24H PO SCH (10:17)
[2018-01-03 11:14] LABS: Glucose,Whole Blood 300 mg/dL (75-99)
--- NOTE | 2018-01-03 11:48 | P.PN ---
Subjective Progress Note Date: 01/03/18 Patient seen and examined and follow-up this morning. He is overall feeling well, he's been up ambulating in the hallway without any difficulty. Denies any chest pain, breathing has been stable, no palpitations, dizziness or lightheadedness. Blood pressure 120/60 with a heart rate in the 50s this morning. Sodium 135, potassium 4.7, BUN 45, creatinine 1.5. CT of the brain was performed which did not reveal any change. Carotid Doppler study was performed, did not demonstrate flow in the right vertebral artery which was presumed occluded. Extensive plaque in both coronary arteries. Neurology's recommendation was to continue Plavix, statin, and baby aspirin. Objective - Vital Signs Vital signs: Vital Signs Temp 97.4 F L 01/03/18 04:00 Pulse 44 L 01/03/18 04:00 Resp 16 01/03/18 04:00 BP 119/57 01/03/18 04:00 Pulse Ox 97 01/03/18 04:00 Intake & Output 01/02/18 01/03/18 01/03/18 18:59 06:59 18:59 Intake Total 1560 240 Output Total 500 500 800 Balance 1060 -500 -560 Weight 79.9 kg Intake: IV 0 0.9 0 Oral 1560 240 Output: Urine 500 500 800 Other: # Voids 2 1 - Exam PHYSICAL EXAMINATION: HEENT: Head is atraumatic, normocephalic. Pupils equal, round. Neck is supple. There is no elevated jugular venous pressure. HEART EXAMINATION: Heart S1 and S2 systolic ejection murmur is heard. CHEST EXAMINATION: Lungs are clear to auscultation and precussion. No chest wall tenderness is noted on palpation or with deep breathing. ABDOMEN: Soft, nontender. Bowel sounds are heard. No organomegaly noted. EXTREMITIES: 2+ peripheral pulses with no evidence of peripheral edema and no calf tenderness noted. NEUROLOGIC patient is awake, alert and oriented -3. . - Labs CBC & Chem 7: 01/02/18 06:04 01/03/18 05:38 Labs: Abnormal Lab Results - Last 24 Hours (Table) 01/01/18 01/02/18 01/02/18 Range/Units 05:19 11:32 16:36 Sodium (137-145) mmol/L Chloride (98-107) mmol/L Carbon Dioxide (22-30) mmol/L BUN (9-20) mg/dL Creatinine (0.66-1.25) mg/dL Glucose (74-99) mg/dL POC Glucose (mg/dL) 254 H 245 H (75-99) mg/dL Hemoglobin A1c 9.6 H (4.0-6.0) % 01/02/18 01/03/18 01/03/18 Range/Units 21:32 03:14 05:38 Sodium 135 L (137-145) mmol/L Chloride 96 L (98-107) mmol/L Carbon Dioxide 31 H (22-30) mmol/L BUN 45 H (9-20) mg/dL Creatinine 1.58 H (0.66-1.25) mg/dL Glucose 220 H (74-99) mg/dL POC Glucose (mg/dL) 270 H 195 H (75-99) mg/dL Hemoglobin A1c (4.0-6.0) % 01/03/18 01/03/18 01/03/18 Range/Units 06:47 08:39 11:12 Sodium (137-145) mmol/L Chloride (98-107) mmol/L Carbon Dioxide (22-30) mmol/L BUN (9-20) mg/dL Creatinine (0.66-1.25) mg/dL Glucose (74-99) mg/dL POC Glucose (mg/dL) 196 H 194 H 300 H (75-99) mg/dL Hemoglobin A1c (4.0-6.0) % Assessment and Plan Plan: Assessment and plan #1 non-ST elevation myocardial infarction, maximal medical therapy advised. #2 ischemic cardiomyopathy #3 acute on chronic renal insufficiency #4 chronic systolic congestive heart failure #4 symptoms of dizziness, neurology has recommended continuing aspirin and Plavix along with statin. Plan From cardiology's perspective, patient may be able to be discharged home once cleared by the primary. We will continue maximal medical therapy at this time in view of the abnormal renal function. We will schedule the patient to follow- up with Dr. Medina in the office post discharge for possible outpatient stress test or cardiac catheterization. DNP note has been reviewed, I agree with a documented findings and plan of care. Patient was seen and examined.
[2018-01-03 12:41] VITALS: TEMP 97.2
[2018-01-03 16:28] VITALS: BP 122/64; PULSE 46
[2018-01-03 16:38] LABS: Glucose,Whole Blood 272 mg/dL (75-99)
--- NOTE | 2018-01-03 18:01 | P.DS ---
Providers Date of admission: 12/31/17 19:29 Expected date of discharge: 01/03/18 Attending physician: Fátima Davies MD Consults: 12/31/17 19:29 Consult Physician Routine Consulting Provider: Kate Mccracken Consult Reason/Comments: cva Do you want consulting provider notified?: Yes Consult Physician Urgent Consulting Provider: Tyrone Luo Consult Reason/Comments: nstemi Do you want consulting provider notified?: Yes Primary care physician: Stated None Hospital Course: 72-year-old male past medical history of systolic congestive heart failure with an ejection fraction 30-35%, prior myocardial infarction, coronary artery disease status post 4 vessel bypass, hypertension, diabetes, and dyslipidemia who presented to the hospital complains of intermittent dizziness. He stated that he was at the [employer] store and became dizzy. He was sitting in his car and felt that the car was turning sideways. He felt as if he was going to fall if he stood up. He also felt he was going to pass out. It lasted only a few seconds. He then proceeded home. When he got to the driveway he again had this feeling but it was stronger. He also felt as though his left leg seems shorter than his right leg. With his inability to ambulate he called EMS and was brought to the hospital. He denied any numbness, tingling, inability to speak, or weakness of any parts of his body. He stated that he saw Dr. Blanton's nurse practitioner approximately 4 weeks ago and his Lasix dose was increased secondary to severe swelling. He stated since that time he has decreased his oral fluid intake due to increased urination. He takes his weight every day. When he had fluid overload he weighed 203 pounds and today he weighed 172 pounds. He typically follows with Dr. Medina but has not seen him in quite some time due to lack of insurance. Once he arrived to the ER he also noted that he felt the room was spinning and became nauseous. He states his blood sugar does drop sometimes but on arrival to the ER his glucose was 81. He denies any chest pain, shortness of breath, or palpitations. He tries to follow with doctors as much as he can. His initial vital signs are within normal limits. Initial laboratory analysis showed elevated troponin at 0.78. His creatinine was also slightly elevated at 1.7 with baseline being around 1.5. He underwent a head CT which showed no acute process. He underwent a chest x-ray which also showed no acute process. His EKG demonstrated a paced rhythm at a rate of 60. Patient was subsequently admitted to selective care unit for further evaluation and management. He was on telemetry. Troponin was cycled and it was climbing up consistent with non-ST elevation myocardial infarction. Patient was started on Lovenox 80 mg subcu twice a day, therapeutic dose. He was evaluated by cardiology. The ceo elected not to pursue heart catheterization because of chronic renal insufficiency and severe ALLERGY to contrast dye even with premedications according to the patient. Patient was continued on Plavix and aspirin, he was also started on statin and Imdur. Patient had full stroke workup consistent of repeat computed tomography scan of the head in 24 hours and that did not show any changes. 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 Patient was also seen by neurology service who advised to do a CT angiogram of the head and neck but patient declined to have that procedure because of severe ALLERGY to contrast. He also had an echocardiogram which showed ejection fraction of 25-30 %, severe pulmonary hypertension and concentric LVH. EEG was also done and that was negative for any seizure focus. Time for discharge 35 minutes. Patient Condition at Discharge: Fair Plan - Discharge Summary Discharge Rx Participant: No New Discharge Prescriptions: New Atorvastatin [Lipitor] 40 mg PO HS #30 tab Isosorbide Mononitrate ER [Imdur] 30 mg PO DAILY #30 tab.er.24h Aspirin 81 mg PO DAILY #90 chewable Continue Clopidogrel [Plavix] 75 mg PO DAILY #30 tab Nitroglycerin Sl Tabs [Nitrostat] 0.4 mg SUBLINGUAL Q5M PRN #0 tab PRN Reason: Chest Pain Tamsulosin HCl [Flomax] 0.4 mg PO DAILY Insulin NPH Human Isophane [NovoLIN N] 30 unit SQ 1400 Insulin Regular, Human [NovoLIN R] See Protocol SQ TID Multivitamins, Thera [Multivitamin (formulary)] 1 tab PO DAILY Carvedilol [Coreg] 12.5 mg PO BID Spironolactone [Aldactone] 50 mg PO DAILY Bumetanide [BUMEX] 2 mg PO DAILY@1400 Bumetanide [BUMEX] 2 mg PO QAM Fish Oil/Dha/Epa [Fish Oil 1,200 mg Fish Oil] 1 cap PO DAILY Discharge Medication List Clopidogrel [Plavix] 75 mg PO DAILY #30 tab 09/02/15 [Rx] Nitroglycerin Sl Tabs [Nitrostat] 0.4 mg SUBLINGUAL Q5M PRN #0 tab 09/11/16 [Rx] Insulin NPH Human Isophane [NovoLIN N] 30 unit SQ 1400 11/08/16 [History] Tamsulosin HCl [Flomax] 0.4 mg PO DAILY 11/08/16 [History] Insulin Regular, Human [NovoLIN R] See Protocol SQ TID 02/22/17 [History] Bumetanide [BUMEX] 2 mg PO DAILY@1400 12/31/17 [History] Bumetanide [BUMEX] 2 mg PO QAM 12/31/17 [History] Carvedilol [Coreg] 12.5 mg PO BID 12/31/17 [History] Fish Oil/Dha/Epa [Fish Oil 1,200 mg Fish Oil] 1 cap PO DAILY 12/31/17 [History] Multivitamins, Thera [Multivitamin (formulary)] 1 tab PO DAILY 12/31/17 [History ] Spironolactone [Aldactone] 50 mg PO DAILY 12/31/17 [History] Aspirin 81 mg PO DAILY #90 chewable 01/03/18 [Rx] Atorvastatin [Lipitor] 40 mg PO HS #30 tab 01/03/18 [Rx] Isosorbide Mononitrate ER [Imdur] 30 mg PO DAILY #30 tab.er.24h 01/03/18 [Rx] Follow up Appointment(s)/Referral(s): Papo Best MD [STAFF PHYSICIAN] - 1 Week Mike Medina MD [STAFF PHYSICIAN] - 1 Week Patient Instructions/Handouts: Transient Ischemic Attack (DC) Activity/Diet/Wound Care/Special Instructions: Outpatient heart cath in future. Medical management at this time.
--- NOTE | 2018-01-06 17:08 | CDI ---
Last Revision, September 2017 Documentation Clarification Form Date: 01/06/18 From: Bárbara William Ofelia Petty, [employer] between 8:30 am & 5 pm Maria Admit Date: 12/31/2017 7:29:00 PM Patient Name: Fernando Tapia Visit Number: [id number] Discharge Date: 01/03/18 ATTENTION: The Clinical Documentation Specialists (CDI) and [facility] Coding Staff appreciate your assistance in clarifying documentation. Please respond to the clarification below the line at the bottom and electronically sign. The CDI & [facility] Coding staff will review the response and follow-up if needed. Please note: Queries are made part of the Legal Health Record. If you have any questions, please contact the author of this message via ITS. Dr. Fátima Gasca Vidal Samson Patient presented with dizziness. History of previous CVA. Per Carotid doppler - Occluded right vertebral artery was found. Bilateral internal carotid stenosis -50%. Further studies unable to be done due to contrast allergy. Neurology consult documented CVA. Liptor, Imdur and Aspirin added to discharge meds list. In your professional opinion, can you please clarify ? CVA ruled out CVA ruled in Vertebral artery stenosis with infarction Carotid artery stenosis with infarction Other, please specify Unable to determine Please continue to document in your progress notes and discharge summary in order to capture severity of illness and risk of mortality. Include clinical findings that support your diagnosis. CVA ruled out but vertebral artery occlusion could contribute to patient's symptoms. JOSE
== END 2018-01-03 18:04 | disposition home or self-care (01) | DRG 281 ==
LOC: EC 16:51 → 6SEL 19:29
PROVIDERS: ADMIT Internal Medicine; ATTEND Internal Medicine
DX: I21.4 Non-ST elevation (NSTEMI) myocardial infarction (principal); N17.9 Acute kidney failure, unspecified; E11.649 Type 2 diabetes mellitus with hypoglycemia without coma; E11.22 Type 2 diabetes mellitus with diabetic chronic kidney disease; I50.22 Chronic systolic (congestive) heart failure; I13.0 Hypertensive heart and chronic kidney disease with heart failure and stage 1 through stage 4 chronic kidney disease, or unspecified chronic kidney disease; I27.20 Pulmonary hypertension, unspecified; I65.01 Occlusion and stenosis of right vertebral artery; I65.23 Occlusion and stenosis of bilateral carotid arteries; N18.3 Chronic kidney disease, stage 3 (moderate); I25.5 Ischemic cardiomyopathy; I35.2 Nonrheumatic aortic (valve) stenosis with insufficiency; R40.2362 Coma scale, best motor response, obeys commands, at arrival to emergency department; R40.2142 Coma scale, eyes open, spontaneous, at arrival to emergency department; R40.2252 Coma scale, best verbal response, oriented, at arrival to emergency department; E78.5 Hyperlipidemia, unspecified; K21.9 Gastro-esophageal reflux disease without esophagitis; I25.10 Atherosclerotic heart disease of native coronary artery without angina pectoris; I25.2 Old myocardial infarction; Z79.02 Long term (current) use of antithrombotics/antiplatelets; Z79.4 Long term (current) use of insulin; Z79.899 Other long term (current) drug therapy; Z95.1 Presence of aortocoronary bypass graft; Z85.51 Personal history of malignant neoplasm of bladder; Z95.0 Presence of cardiac pacemaker; Z91.041 Radiographic dye allergy status; Z86.73 Personal history of transient ischemic attack (TIA), and cerebral infarction without residual deficits
CPT/HCPCS: 36415; 70450; 71046; 80048; 80053; 80061; 82550; 82553; 83036; 83605; 83735; 84100; 84484; 85025; 85379; 93005; 93306; 93880; 95816; 96374; 96375; 99285